=== PATIENT | male | born 1940 | race Caucasian/White ===

== ENCOUNTER → 2023-04-06 08:18 | Outpatient (REF) | payer OTHER, SELFPAY | LOC: HWRAD 08:18 | PROVIDERS: ATTENDING PHYSICIAN Family Medicine | DX: R91.1 Solitary pulmonary nodule (principal) | CPT/HCPCS: 71270; Q9967 ==

== ENCOUNTER 2023-04-08 06:19 | Emergency (ER) | payer OTHER, SELFPAY ==
[2023-04-08 06:24] VITALS: BP 162/78
--- NOTE | 2023-04-08 06:49 | ED.GENMED ---
History of Present Illness
General
Chief Complaint: Oral/Mouth Problem
Source: patient and spouse
Exam Limitations: none
Time Seen by Provider: 04/08/23 06:34
Travel History
Have you had any contact with someone who has COVID-19?: No
Do you have any symptoms of coronavirus? Fever > 100 degrees, chills, cough, shortness of breath, sore throat, loss of taste or smell, muscle aches, or headache?: No
History of Present Illness
History of Present Illness:
82-year-old male bleeding gums from a dental extraction last. Bleeding started overnight. INR slightly elevated at 4.2. Ended up taking 200 mcg of vitamin K with vitamin D. Currently not bleeding. No physical complaints.
Past History
Past History
ED Past Medical History: Arrthythmia (Atrial fibrillation), CVA and Other (Pneumonia, aortic valve replacement, mitral valve replacement, anemia)
ED Past Surgical History: Cardiac
Social History
Tobacco: Non-smoker
Alcohol: None
Drug: None
Personal:
Living: with family
Review of Systems
Review of Systems
All Other Systems: Not applicable
Constitutional: Denies fever
Phy Exam
Physical Exam
Physical Exam:
GENERAL: Alert and oriented in no apparent distress
EYE: Orbits normal.
NECK: Supple, no swelling
ENT: Pharynx without erythema. No drooling no stridor speech normal. Extraction site clean. No current bleeding
LUNGS: No respiratory distress
NEUROLOGICAL: Alert and oriented , grossly non-focal
SKIN: Warm and dry
PSYCH: Normal and appropriate interaction.
Course
Orders/Labs/Results
Orders:
Orders
04/08/23 06:43
Basic Metabolic Panel Urgent
Complete Blood Count/With Diff Urgent
PTT Urgent
Prothrombin Time Urgent
Abnormal Lab Results
04/08/23
06:43
RBC 3.37 L 10^6/uL
(4.70-6.10)
Hgb 11.1 L g/dL
(13.0-18.0)
Hct 32.5 L %
(39.0-52.0)
MCV 96.4 H fL
(80.0-94.0)
MCH 32.9 H pg
(27.0-31.0)
Absolute Lymphs (auto) 0.9 L 10^3/uL
(1.2-3.4)
Absolute Monos (auto) 0.7 H 10^3/uL
(0.1-0.6)
Lymphocytes % 17.2 L %
(20.5-51.1)
Monocytes % 12.4 H %
(1.7-9.3)
PT 34.9 H Sec
(11.4-14.6)
APTT 49.1 H Sec
(23.4-35.0)
Sodium 134 L mmol/L
(135-145)
Carbon Dioxide 31 H mmol/L
(22-30)
BUN 60 H mg/dl
(9-20)
04/08/23 06:43
04/08/23 06:43
Vital Signs
Initial and Last Documented VS:
Initial Vital Signs
Temp Pulse Resp BP Pulse Ox
97.7 F 65 17 162/78 99
04/08/23 06:24 04/08/23 06:24 04/08/23 06:24 04/08/23 06:24 04/08/23 06:24
Last Documented Vital Signs
Temp Pulse Resp BP Pulse Ox
97.7 F 71 18 146/75 99
04/08/23 06:24 04/08/23 08:48 04/08/23 08:48 04/08/23 08:48 04/08/23 08:48
MDM/Problems Addressed
Differential Diagnosis Includes:
No current bleeding. Will hold on active treatment at this time. Await INR. [place] text to patient's oral surgeon.
*Critical Care Note
Total Time (30-74mins, 75-104mins- exclusive of procedures): Not Applicable
Update Note
Update Note:
Recheck no bleeding. Remained stable. Message again left with patient's oral surgeon. BUN slightly elevated although comparing old labs he does tend to run elevated BUN's. He may have swallowed some blood to explain this. INR 3.4. Patient
updated. Stable for discharge to follow-up
ED Attending Note
-
Portions of this chart may have been created with voice recognition software.� Occasional wrong word or��sound alike� substitutions may have occurred due to the inherent limitations of voice recognition software.
Discharge Plan
Departure
Patient Disposition: Home (Routine Discharge)
Date of Disposition: 04/08/23
Time of Disposition: 08:28
Patient with high blood pressure during this ER visit?: Yes
Discharge Problem:
Bleeding gum, Secondary to tooth extraction, Anticoagulated
Instructions: BLOOD PRESSURE
Prescriptions:
No Action
warfarin [Jantoven] 5 MG tablet
5 mg PO QPM
fish oil-dha-epa 1 EACH capsule
1 ea PO DAILY
resveratrol 250 MG capsule
1,500 mg PO DAILY
coenzyme Q10-vit E-vit E mixed 1 EACH capsule
1 ea PO DAILY
levothyroxine 25 mcg tablet
50 mcg PO DAILY
Patient Comments:
07/22/22-ecw has 50mcg daily on 05/13/22- pharmacy on 04/06/22 has 25mcg daily, patient not sure an doesnot have his list
pantoprazole 40 mg tablet,delayed release (DR/EC)
40 mg PO QPM
ferrous sulfate 325 mg (65 mg iron) tablet
325 mg PO QPM
digoxin 125 mcg (0.125 mg) tablet
125 mcg PO DAILY
furosemide 40 mg tablet
40 mg PO DAILY
atorvastatin 40 mg tablet
40 mg PO QPM
carvedilol 3.125 mg tablet
3.125 mg PO BID
aspirin 81 mg tablet,chewable
81 mg PO DAILY
folic acid 1 MG tablet
1 mg PO DAILY
Jardiance 10 mg tablet
10 mg PO DAILY
Entresto 24-26 mg tablet
1 tab PO BID
Referrals:
Pedro Martinez DO [Family Provider] -
Activity Restrictions/Additional Instructions:
Your INR is 3.41. Discuss further dosing with your household appliance repairer
Call your oral surgeon this morning for close recheck
Return with recurrent bleeding or any other concerning issues
Interventions
Interventions:
*Risk Screen - Suicide Last Done: 04/08/23 06:24
*General Assessment Last Done: 04/08/23 06:24
*Neglect/Abuse Screening Last Done: 04/08/23 06:24
ED- Fall Risk Assessment Last Done: 04/08/23 06:24
*ED COVID-19 Vaccine History Last Done: 04/08/23 06:24
*Nursing Disposition Last Done: 04/08/23 08:51
Discharge Date and Time
Discharge Date/Time: 04/08/23 08:51
[2023-04-08 06:55] LABS: % Basophils 0.7 % (0-2); % Eosinophils 4.6 % (0-6); % Immature Granulocytes 0.2 % (0-0.5); % Lymphocytes 17.2 % (20.5-51.1); % Monocytes 12.4 % (1.7-9.3); % Neutrophils 64.9 % (42.2-75.2); Absolute Eosinophils 0.3 10^3/uL (0-0.7); Absolute Lymphocytes 0.9 10^3/uL (1.2-3.4); Absolute Monocytes 0.7 10^3/uL (0.1-0.6); Absolute Neutrophils 3.5 10^3/uL (1.4-6.5); Hematocrit 32.5 % (39.0-52.0); Hemoglobin 11.1 g/dL (13.0-18.0); Mean Corp Hgb Conc. 34.2 g/dL (33.0-37.0); Mean Corpuscular Hgb 32.9 pg (27.0-31.0); Mean Corpuscular Volume 96.4 fL (80.0-94.0); Mean Platelet Volume 9.8 fL (7.4-10.4); Nucleated Red Blood Cells % 0 % (-); Platelet Count 208 10^3/uL (130-400); Red Blood Cell Count 3.37 10^6/uL (4.70-6.10); Red Cell Dist. Width 14.3 % (11.5-14.5); White Blood Cell Count 5.4 10^3/uL (4.8-10.8)
[2023-04-08 07:08] LABS: INR 3.41; PT 34.9 Sec (11.4-14.6)
[2023-04-08 07:09] LABS: APTT 49.1 Sec (23.4-35.0)
[2023-04-08 07:32] LABS: Blood Urea Nitrogen 60 mg/dl (9-20); Calcium 9.3 mg/dl (8.4-10.2); Carbon Dioxide 31 mmol/L (22-30); Chloride 101 mmol/L (98-107); Glucose 90 mg/dl (70-99); Potassium 4.6 mmol/L (3.5-5.1); Sodium 134 mmol/L (135-145); eGFR > 60.00
[2023-04-08 08:48] VITALS: BP 146/75
== END 2023-04-08 08:51 | disposition home or self-care (01) ==
LOC: EMR 06:19
PROVIDERS: EMERGENCY PHYSICIAN Emergency Medicine; FAMILY PHYSICIAN Family Medicine
DX: K06.8 Other specified disorders of gingiva and edentulous alveolar ridge (principal); I48.91 Unspecified atrial fibrillation; D64.9 Anemia, unspecified; Z95.2 Presence of prosthetic heart valve; Z86.73 Personal history of transient ischemic attack (TIA), and cerebral infarction without residual deficits
CPT/HCPCS: 99283; 80048; 85025; 85610; 85730

== ENCOUNTER → 2023-04-20 15:40 | Outpatient (REF) | payer OTHER, SELFPAY ==
[2023-04-20 16:19] LABS: % Basophils 0.6 % (0-2); % Eosinophils 4.5 % (0-6); % Immature Granulocytes 0.4 % (0-0.5); % Monocytes 14.8 % (1.7-9.3); % Neutrophils 59.7 % (42.2-75.2); Absolute Eosinophils 0.2 10^3/uL (0-0.7); Absolute Monocytes 0.8 10^3/uL (0.1-0.6); Hematocrit 25.2 % (39.0-52.0); Hemoglobin 8.2 g/dL (13.0-18.0); Mean Corp Hgb Conc. 32.5 g/dL (33.0-37.0); Mean Corpuscular Volume 104.6 fL (80.0-94.0); Mean Platelet Volume 9.7 fL (7.4-10.4); Nucleated Red Blood Cells % 0 % (-); Platelet Count 221 10^3/uL (130-400); Red Blood Cell Count 2.41 10^6/uL (4.70-6.10); Red Cell Dist. Width 17.7 % (11.5-14.5); White Blood Cell Count 5.1 10^3/uL (4.8-10.8)
[2023-04-20 16:39] LABS: NT-proBNP 534 pg/ml
[2023-04-20 16:47] LABS: ALT (SGPT) 26 U/L (0-50); AST (SGOT) 46 U/L (17-59); Albumin 3.7 g/dl (3.5-5.0); Alkaline Phosphatase 68 U/L (38-126); Blood Urea Nitrogen 45 mg/dl (9-20); Carbon Dioxide 31 mmol/L (22-30); Chloride 98 mmol/L (98-107); Glucose 104 mg/dl (70-99); Potassium 4.7 mmol/L (3.5-5.1); Sodium 135 mmol/L (135-145); Total Bilirubin 0.8 mg/dl (0.2-1.3); Total Protein 6.1 g/dl (6.3-8.2); eGFR 49.87
[2023-04-20 17:22] LABS: TSH 9.92 uIU/ml (0.47-4.68)
== END ==
LOC: REG 15:40
PROVIDERS: ATTENDING PHYSICIAN Family Medicine
DX: R53.83 Other fatigue (principal)
CPT/HCPCS: 36415; 80053; 83880; 84443; 85025

== ENCOUNTER → 2023-04-29 11:58 | Outpatient (REF) | payer OTHER, SELFPAY ==
[2023-04-29 16:00] LABS: Iron 125 ug/dl (49-181)
[2023-04-29 16:09] LABS: Percent Saturation 33 % (20-50); Total Iron Binding Capacity 370 ug/dl (261-462)
[2023-04-29 16:36] LABS: Ferritin 60.9 ng/ml (17.9-464.0)
== END ==
LOC: HWLAB 11:58
PROVIDERS: ATTENDING PHYSICIAN Family Medicine; REFERRING PHYSICIAN Internal Medicine Hematology & Oncology
DX: D64.9 Anemia, unspecified (principal)
CPT/HCPCS: 36415; 82728; 83540; 83550

== ENCOUNTER → 2023-05-03 11:17 | Outpatient (REF) | payer OTHER, SELFPAY ==
[2023-05-03 15:37] LABS: % Basophils 0.9 % (0-2); % Eosinophils 5.3 % (0-6); % Immature Granulocytes 0.2 % (0-0.5); % Lymphocytes 19.7 % (20.5-51.1); % Monocytes 15.3 % (1.7-9.3); % Neutrophils 58.6 % (42.2-75.2); Absolute Eosinophils 0.2 10^3/uL (0-0.7); Absolute Lymphocytes 0.9 10^3/uL (1.2-3.4); Absolute Monocytes 0.7 10^3/uL (0.1-0.6); Absolute Neutrophils 2.7 10^3/uL (1.4-6.5); Hemoglobin 10.6 g/dL (13.0-18.0); Mean Corp Hgb Conc. 32.1 g/dL (33.0-37.0); Mean Corpuscular Hgb 34.1 pg (27.0-31.0); Mean Corpuscular Volume 106.1 fL (80.0-94.0); Mean Platelet Volume 10.5 fL (7.4-10.4); Nucleated Red Blood Cells % 0 % (-); Platelet Count 213 10^3/uL (130-400); Red Blood Cell Count 3.11 10^6/uL (4.70-6.10); Red Cell Dist. Width 16.1 % (11.5-14.5); White Blood Cell Count 4.5 10^3/uL (4.8-10.8)
== END ==
LOC: HWLAB 11:17
PROVIDERS: ATTENDING PHYSICIAN Family Medicine; REFERRING PHYSICIAN Internal Medicine Cardiovascular Disease
DX: Z86.2 Personal history of diseases of the blood and blood-forming organs and certain disorders involving the immune mechanism (principal)
CPT/HCPCS: 36415; 85025

== ENCOUNTER → 2023-07-15 10:49 | Outpatient (REF) | payer OTHER, SELFPAY ==
[2023-07-15 11:48] LABS: % Basophils 0.6 % (0-2); % Eosinophils 2.8 % (0-6); % Immature Granulocytes 0.6 % (0-0.5); % Lymphocytes 16.8 % (20.5-51.1); % Monocytes 9.5 % (1.7-9.3); % Neutrophils 69.7 % (42.2-75.2); Absolute Eosinophils 0.2 10^3/uL (0-0.7); Absolute Lymphocytes 0.9 10^3/uL (1.2-3.4); Absolute Monocytes 0.5 10^3/uL (0.1-0.6); Absolute Neutrophils 3.7 10^3/uL (1.4-6.5); Hematocrit 25.2 % (39.0-52.0); Hemoglobin 8.1 g/dL (13.0-18.0); Mean Corp Hgb Conc. 32.1 g/dL (33.0-37.0); Mean Corpuscular Hgb 33.6 pg (27.0-31.0); Mean Corpuscular Volume 104.6 fL (80.0-94.0); Mean Platelet Volume 10.4 fL (7.4-10.4); Nucleated Red Blood Cells % 0 % (-); Platelet Count 223 10^3/uL (130-400); Red Blood Cell Count 2.41 10^6/uL (4.70-6.10); Red Cell Dist. Width 16.7 % (11.5-14.5); White Blood Cell Count 5.4 10^3/uL (4.8-10.8)
[2023-07-15 12:39] LABS: ALT (SGPT) 29 U/L (0-50); AST (SGOT) 60 U/L (17-59); Alkaline Phosphatase 66 U/L (38-126); Blood Urea Nitrogen 48 mg/dl (9-20); Calcium 9.3 mg/dl (8.4-10.2); Carbon Dioxide 31 mmol/L (22-30); Chloride 100 mmol/L (98-107); Glucose 93 mg/dl (70-99); HDL Cholesterol 66 mg/dl; Iron 236 ug/dl (49-181); LDL Cholesterol, Calculated 35 mg/dl; Potassium 4.4 mmol/L (3.5-5.1); Sodium 136 mmol/L (135-145); Total Bilirubin 0.9 mg/dl (0.2-1.3); Total Cholesterol 113 mg/dl (50-199); Total Protein 6.5 g/dl (6.3-8.2); Triglyceride 60 mg/dl (10-149); Very Low Density Lipoprotein 12 mg/dl (0-30); eGFR 59.63
[2023-07-15 12:48] LABS: Percent Saturation 74 % (20-50); Total Iron Binding Capacity 317 ug/dl (261-462)
[2023-07-15 13:05] LABS: TSH Reflex To Free T4 7.08 uIU/ml (0.47-4.68)
[2023-07-15 13:09] LABS: Ferritin 41.9 ng/ml (17.9-464.0)
[2023-07-15 13:33] LABS: Free T4 1.23 ng/dl (0.78-2.19)
== END ==
LOC: HWLAB 10:49
PROVIDERS: ATTENDING PHYSICIAN Internal Medicine Cardiovascular Disease; FAMILY PHYSICIAN Family Medicine
DX: R42 Dizziness and giddiness (principal)
CPT/HCPCS: 36415; 80053; 80061; 82728; 83540; 83550; 84439; 84443; 85025

== ENCOUNTER → 2023-08-11 10:27 | Outpatient (REF) | payer OTHER, SELFPAY ==
[2023-08-11 12:37] LABS: % Basophils 1.4 % (0-2); % Eosinophils 4.4 % (0-6); % Immature Granulocytes 0.3 % (0-0.5); % Lymphocytes 21.6 % (20.5-51.1); % Monocytes 17.9 % (1.7-9.3); % Neutrophils 54.4 % (42.2-75.2); Absolute Eosinophils 0.1 10^3/uL (0-0.7); Absolute Lymphocytes 0.6 10^3/uL (1.2-3.4); Absolute Monocytes 0.5 10^3/uL (0.1-0.6); Absolute Neutrophils 1.6 10^3/uL (1.4-6.5); Hematocrit 32.7 % (39.0-52.0); Hemoglobin 10.5 g/dL (13.0-18.0); Mean Corp Hgb Conc. 32.1 g/dL (33.0-37.0); Mean Corpuscular Hgb 33.2 pg (27.0-31.0); Mean Corpuscular Volume 103.5 fL (80.0-94.0); Mean Platelet Volume 10.4 fL (7.4-10.4); Nucleated Red Blood Cells % 0 % (-); Platelet Count 168 10^3/uL (130-400); Red Blood Cell Count 3.16 10^6/uL (4.70-6.10); Red Cell Dist. Width 13.9 % (11.5-14.5)
== END ==
LOC: HWLAB 10:27
PROVIDERS: ATTENDING PHYSICIAN Internal Medicine Hematology & Oncology; FAMILY PHYSICIAN Family Medicine
DX: D50.9 Iron deficiency anemia, unspecified (principal)
CPT/HCPCS: 36415; 85025

== ENCOUNTER → 2023-08-19 13:39 | Outpatient (REF) | payer OTHER, SELFPAY ==
[2023-08-19 16:28] LABS: % Basophils 0.9 % (0-2); % Eosinophils 4.4 % (0-6); % Immature Granulocytes 0.3 % (0-0.5); % Lymphocytes 27.9 % (20.5-51.1); % Monocytes 14.5 % (1.7-9.3); Absolute Eosinophils 0.2 10^3/uL (0-0.7); Absolute Monocytes 0.5 10^3/uL (0.1-0.6); Absolute Neutrophils 1.8 10^3/uL (1.4-6.5); Hematocrit 34.1 % (39.0-52.0); Hemoglobin 11.1 g/dL (13.0-18.0); Mean Corp Hgb Conc. 32.6 g/dL (33.0-37.0); Mean Corpuscular Hgb 32.3 pg (27.0-31.0); Mean Corpuscular Volume 99.1 fL (80.0-94.0); Mean Platelet Volume 10.5 fL (7.4-10.4); Nucleated Red Blood Cells % 0 % (-); Platelet Count 200 10^3/uL (130-400); Red Blood Cell Count 3.44 10^6/uL (4.70-6.10); White Blood Cell Count 3.4 10^3/uL (4.8-10.8)
[2023-08-19 17:16] LABS: Ferritin 35.2 ng/ml (17.9-464.0)
[2023-08-19 18:01] LABS: Iron 63 ug/dl (49-181)
[2023-08-19 18:10] LABS: Percent Saturation 18 % (20-50); Total Iron Binding Capacity 336 ug/dl (261-462)
== END ==
LOC: HWLAB 13:39
PROVIDERS: ATTENDING PHYSICIAN Family Medicine
DX: D64.9 Anemia, unspecified (principal)
CPT/HCPCS: 36415; 82728; 83540; 83550; 85025

== ENCOUNTER 2023-09-13 06:48 | Emergency (ER) | payer OTHER, SELFPAY ==
[2023-09-13 06:51] VITALS: BP 159/106
[2023-09-13 07:10] VITALS: BMI 23.2
[2023-09-13 07:33] VITALS: BP 133/96
[2023-09-13 08:20] LABS: % Basophils 0.8 % (0-2); % Eosinophils 3.8 % (0-6); % Immature Granulocytes 0.4 % (0-0.5); % Lymphocytes 16.7 % (20.5-51.1); % Monocytes 13.7 % (1.7-9.3); % Neutrophils 64.6 % (42.2-75.2); Absolute Eosinophils 0.2 10^3/uL (0-0.7); Absolute Lymphocytes 0.8 10^3/uL (1.2-3.4); Absolute Monocytes 0.7 10^3/uL (0.1-0.6); Absolute Neutrophils 3.2 10^3/uL (1.4-6.5); Hematocrit 37.8 % (39.0-52.0); Hemoglobin 12.8 g/dL (13.0-18.0); Mean Corp Hgb Conc. 33.9 g/dL (33.0-37.0); Mean Corpuscular Hgb 31.8 pg (27.0-31.0); Mean Platelet Volume 9.8 fL (7.4-10.4); Nucleated Red Blood Cells % 0 % (-); Platelet Count 177 10^3/uL (130-400); Red Blood Cell Count 4.02 10^6/uL (4.70-6.10); Red Cell Dist. Width 12.6 % (11.5-14.5)
[2023-09-13 08:27] LABS: INR 1.87; PT 21.7 Sec (11.4-14.6)
[2023-09-13 08:28] LABS: APTT 36.5 Sec (23.4-35.0)
[2023-09-13 08:45] LABS: ALT (SGPT) 30 U/L (0-50); AST (SGOT) 47 U/L (17-59); Albumin 4.7 g/dl (3.5-5.0); Alkaline Phosphatase 82 U/L (38-126); Blood Urea Nitrogen 27 mg/dl (9-20); Calcium 9.3 mg/dl (8.4-10.2); Carbon Dioxide 30 mmol/L (22-30); Chloride 99 mmol/L (98-107); Estimated Creatinine Clearance 46 ml/min; Glucose 93 mg/dl (70-99); Potassium 4.2 mmol/L (3.5-5.1); Sodium 137 mmol/L (135-145); Total Protein 7.4 g/dl (6.3-8.2); eGFR 59.63
[2023-09-13 09:48] VITALS: BP 126/74
[2023-09-13 10:01] VITALS: BP 129/59
--- NOTE | 2023-09-13 11:41 | PHANOTE ---
Completing med rec for patient and noted that patient was previously prescribed diltiazem CD 180mg daily then a dose decrease to 120mg daily was noted by cardiology on 07/06/23. Contacted [facility] who noted that patient was dispensed #90
tablets of diltiazem IR 120mg daily on 07/06/23. Contacted collection supervisor who noted that patient is to receive diltiazem ER/CD 120mg daily. Notified ED provider and [facility] [[facility]: [facility]] of updated dosage formulation.
[2023-09-13] MEDS: TYLENOL 650 MG PO (11:55)
[2023-09-13 12:00] VITALS: BP 154/86
--- NOTE | 2023-09-13 13:20 | EDRN ---
Reviewed discharge instructions with patient. Verbalized understanding. Ambulated with steady gait to the lobby.
[2023-09-13 13:25] VITALS: BP 148/72
--- NOTE | 2023-09-13 16:25 | ED.CVA ---
History of Present Illness
General
Chief Complaint: CVA/TIA Symptoms
Source: patient and spouse
Exam Limitations: none
Time Seen by Provider: 09/13/23 07:33
Nursing documentation reviewed up to this point in time: agreed with
Onset of Stroke Symptoms
Onset of symptoms known: Yes
Date of onset of symptoms: 09/13/23
History of Present Illness
History of Present Illness:
83-year-old male with a past medical history of atrial fibrillation on Coumadin, CHF, valve replacement who presents to the emergency room with his for evaluation after an episode of slurred speech. Patient reports that he was on the phone
with his laboratory chemical assistant at around 5:30 AM when he had an episode of slurred speech that lasted for about 60 seconds. He says it completely resolved but that his laboratory chemical assistant could not understand him for that period of time. He came to the emergency room
for assessment. He says he did not have any visual disturbance. He did not have any weakness or numbness in his extremities. did not note any facial droop. Again, symptoms have completely resolved and he is asymptomatic here. Denies any
chest pain or palpitations. He is in permanent A-fib. Denies any other complaints. He is on Coumadin and reports compliance.
Past History
Past History
ED Past Medical History: Arrthythmia (Atrial fibrillation), CVA and Other (Pneumonia, aortic valve replacement, mitral valve replacement, anemia)
ED Past Surgical History: Cardiac
Social History
Tobacco: Non-smoker
Alcohol: None
Drug: None
Personal:
Living: with family
Review of Systems
Review of Systems
All Other Systems: ROS reviewed and negative except as documented in HPI and ROS
Constitutional: Denies fever
Respiratory: Denies trouble breathing
Cardiac: Denies chest pain or palpitations
ABD/GI: Denies abdominal pain, nausea or vomiting
: Denies flank pain
Musculoskeletal: Denies neck pain or back pain
Neurological: Reports other (Speech disturbance); Denies dizzy, headache, weakness or numbness
Phy Exam
Physical Exam
Physical Exam:
General: Awake, alert, oriented x3; no acute distress
Head: Normocephalic, atraumatic
Eyes: Conjunctiva normal, EOMI, pupils equal round and reactive to light bilaterally
Throat: Airway intact, handling secretions
Neck: Trachea midline, supple without meningismus
Lungs: Clear to auscultation bilaterally, no wheezing, rales, rhonchi
Heart: Regular rate and irregular rhythm, systolic murmur
Abd: Soft, non distended, nontender
Neuro: Cranial nerves intact 2 through 12, speech is fluid with no dysarthria or aphasia, no limb ataxia, motor and sensory function is intact and symmetric in the upper and lower extremities, ambulatory with steady gait
Skin: no rash
Extremities: No edema in extremities, equal pulses in all extremities
Scores
NIH Stroke Score
Level of Consciousness: 0 - Alert
LOC Questions: 0-Answers both correctly
LOC Commands: 0-Performs both correctly
Best Horizontal Gaze: 0-Normal
Visual Sanchez: 0=Normal, no visual loss
Facial Palsy: 0=Normal, symmetrical
Motor - Right Arm: 0=No drift 10 seconds
Motor - Left Arm: 0=No drift 10 seconds
Motor - Right Le-No drift 5 seconds
Motor - Left Le-No drift 5 seconds
Limb Ataxia: 0-Absent
Sensation: 0-Normal
Best Language: 0-No aphasia
Dysarthria: 0-Normal
Extinction and Inattention: 0-No abnormality
Total Score:: 0
Heart Failure Risk
Heart Failure Risk Score: Not Applicable
Heart Score for Chest Pain Patients
STEMI patient?: Not applicable
Withdrawal Assessment of Alcohol
Withdrawal Assessment Completed?: Not applicable
Course
Orders/Labs/Results
Orders:
Orders
09/13/23 07:03
CT Head W/o Iv Contrast Urgent
Comment:
Reason For Exam: slurred speech
09/13/23 07:05
EKG [Electrocardiogram (*1)] Urgent
Reason for Study: TIA/Stroke
EKG- Treatment ONCE
09/13/23 07:49
CMP [Comprehensive Metabolic Panel] Urgent
Complete Blood Count/With Diff Urgent
PTT Urgent
Prothrombin Time Urgent
09/13/23 08:02
NEUROLOGY CONSULT Urgent
Consulting Provider: Shane Mascorro
Was physician already notified: Yes
09/13/23 08:18
US Carotid [US Cerebrovascular] Urgent
Comment:
Reason For Exam: transient dysarthria
09/13/23 11:48
Acetaminophen [Tylenol] 650 mg PO NOW STA
Abnormal Lab Results
09/13/23
07:49
RBC 4.02 L 10^6/uL
(4.70-6.10)
Hgb 12.8 L g/dL
(13.0-18.0)
Hct 37.8 L %
(39.0-52.0)
MCH 31.8 H pg
(27.0-31.0)
Absolute Lymphs (auto) 0.8 L 10^3/uL
(1.2-3.4)
Absolute Monos (auto) 0.7 H 10^3/uL
(0.1-0.6)
Lymphocytes % 16.7 L %
(20.5-51.1)
Monocytes % 13.7 H %
(1.7-9.3)
PT 21.7 H Sec
(11.4-14.6)
APTT 36.5 H Sec
(23.4-35.0)
BUN 27 H mg/dl
(9-20)
09/13/23 07:49
09/13/23 07:49
Vital Signs
Initial and Last Documented VS:
Initial Vital Signs
Temp Pulse Resp BP Pulse Ox
36.5 C 98 16 159/106 98
09/13/23 06:51 09/13/23 06:51 09/13/23 06:51 09/13/23 06:51 09/13/23 06:51
Last Documented Vital Signs
Temp Pulse Resp BP Pulse Ox
36.5 C 70 18 148/72 98
09/13/23 06:51 09/13/23 13:25 09/13/23 13:25 09/13/23 13:25 09/13/23 13:25
MDM/Problems Addressed
Differential Diagnosis Includes:
TIA, CVA, hemorrhage, brain mass, fatigue
MDM/Problems Addressed:
83-year-old male presents for evaluation after transient episode of dysarthria that lasted for about 60 seconds and has completely resolved. Asymptomatic here in the emergency room. Hypertensive but otherwise normal vitals. Physical exam as
above. NIH stroke scale 0. Suspect likely TIA. Will place an IV check labs including a CBC and a CMP, coags. Will check CT head and carotid ultrasound. Check an EKG. Monitor clinically reassess after the above. Case discussed with neurology
to evaluate.
Labs reviewed: CBC shows marginal anemia stable unremarkable otherwise. CMP no clinically significant abnormalities. INR slightly subtherapeutic at 1.87. CT head negative for any acute pathology. Carotid ultrasound no significant stenosis. Case
was discussed with neurology who evaluated. Initial recommendation was for admission for observation and MRI. Initially discussed case with hospitalist for admission. Shortly after admission patient requested to speak with me�he says that he does
not wish to stay in the hospital and is refusing admission. I did have a long discussion with the patient and his �explained that patient at risk for progression of stroke after TIA like this. Furthermore explained that given he is
subtherapeutic on his INR and in permanent A-fib this could be a very small stroke that only had mild transient symptoms. He indicated understanding but still wishes to leave the hospital. Discussed with neurology they recommended starting him on
81 mg aspirin every other day. I stressed with the patient that he will need to follow INR closely as an outpatient. He assured me that he would. We spoke in detail about return precautions including for any return of neurologic symptoms. Using
shared decision making he was discharged in keeping with his wishes.
Chronic conditions affecting care:
A-fib on Coumadin�high risk for stroke
Acute Exacerbation and/or Progression of Chronic Illness:
Acutely hypertensive resolved without intervention continue to monitor but no additional antihypertensives indicated at present
*Radiology
Radiology exam reviewed: radiology read reviewed
*Pulse Oximetry
Patient hypoxic: no
*EKG
Interpreted by ED Provider?: Yes
Heart Rate: 77
Rate: normal
Rhythm: a-fib
[place]: normal axis
QRS Pattern: left bundle branch block
*Critical Care Note
Total Time (30-74mins, 75-104mins- exclusive of procedures): Not Applicable
Data Reviewed
Review of Other/Old Records Reveals: Labs and Records
Source: patient and spouse
Further Testing Considered But Not Given:
MRI�patient declined
Patient Management
Discussion with other providers: Hospitalist (Discussed with hospitalist) and Toll Transmission Worker (Discussed with neurologist)
Escalation/DeEscalation of care consider admission/obs:
Admission indicated but patient declined admission�using shared decision-making he was discharged in keeping with his wishes
ED Attending Note
-
Portions of this chart may have been created with voice recognition software.� Occasional wrong word or��sound alike� substitutions may have occurred due to the inherent limitations of voice recognition software.
Discharge Plan
Departure
Patient Disposition: Home (Routine Discharge)
Date of Disposition: 09/13/23
Time of Disposition: 10:35
Patient with high blood pressure during this ER visit?: Yes
Discharge Problem:
Brain TIA
Instructions: Transient Ischemic Attack (DC)
Prescriptions:
New
aspirin 81 mg tablet,chewable
See Rx Instructions .ROUTE .COMPLEX Qty: 30 0RF
Rx Instructions:
81 mg orally;every other day
No Action
warfarin [Jantoven] 5 MG tablet
5 mg PO QPM
Patient Comments:
09/13/23: PER ECW-NADIRA from [facility] called to verify dose for patient as dose in comment section is 5.5mg daily. I told him patient has 1mg tabs at home and knows to break them in half however, I did tell PJ to please note in patient file that he
does not take the dose of Coumadin we direct most times. Patient doses himself a lot of the time. We have educated patient multiple times to not do this and why it is important to follow our dosing.
ferrous sulfate 325 mg (65 mg iron) tablet
325 mg PO BID
digoxin 125 mcg (0.125 mg) tablet
125 mcg PO DAILY
furosemide 40 mg tablet
40 mg PO DAILY
atorvastatin 40 mg tablet
40 mg PO QPM
folic acid 1 MG tablet
1 mg PO DAILY
Entresto 24-26 mg tablet
1 tab PO BID
carvedilol 6.25 mg Tablet
3.125 mg PO BID
Theragen Tablet
1 tab PO DAILY
spironolactone 25 mg Tablet
25 mg PO DAILY
levothyroxine 25 mcg Tablet
25 mcg PO DAILY
diltiazem HCl 120 mg Tablet
120 mg PO DAILY
coenzyme Q10 [CoQ-10] 100 mg Capsule
100 mg PO DAILY
omega 8-jxk-vxh-fish oil [Fish Oil] 1,000 mg (120 mg-180 mg) Capsule
1 cap PO DAILY
resveratrol 250 mg Capsule
1,000 mg PO DAILY
cyanocobalamin (vitamin B-12) tablet
1 tab PO DAILY
Activity Restrictions/Additional Instructions:
You were seen in the emergency room after an episode of slurred speech. You were seen by the neurologist who recommended that you be observed overnight for some further testing and observation. You opted not to stay in the hospital�after
discussion we agreed that you must at the very least follow-up with your primary doctor within the next few days and monitor your INR very closely to ensure that it is improving to the therapeutic range. If you have any recurrence of symptoms
whatsoever you must immediately return to the emergency room.
Thank you for visiting the Emergency Department at [facility].
1. Please schedule a follow up appointment as directed. Call first thing tomorrow morning to make an appointment.
2. If indicated, please take your medications as instructed and indicated on discharge paperwork.
3. If any of your symptoms do not improve, or persist, or become more severe within 6-12 hours, please return to the emergency department for further care.
4. Please return to the emergency department if you develop a headache, neck pain/stiffness, fever greater than 100.4F, chest pain, shortness of breath, persistent nausea, vomiting, slurred speech, difficulty walking, numbness/tingling, weakness,
signs of infection or any other symptoms that are worrisome to you.
Please call [phone] if you have any questions.
Interventions
Interventions:
*Risk Screen - Suicide Last Done: 09/13/23 07:10
*General Assessment Last Done: 09/13/23 07:10
*Neglect/Abuse Screening Last Done: 09/13/23 07:10
ED- Fall Risk Assessment Last Done: 09/13/23 07:10
*ED COVID-19 Vaccine History Last Done: 09/13/23 06:51
*Nursing Disposition Last Done: 09/13/23 13:25
ED- Pulmonary Assessment Last Done: 09/13/23 07:10
ED- Neurological Assessment Last Done: 09/13/23 07:10
ED- Cardiac Assessment Last Done: 09/13/23 07:10
ED Swallowing Screen Last Done: 09/13/23 08:45
Discharge Date and Time
Discharge Date/Time: 09/13/23 13:20
Print Language: ARABIC
== END 2023-09-13 13:20 | disposition home or self-care (01) ==
LOC: EMR 06:48
PROVIDERS: CONSULT PHYSICIAN Psychiatry & Neurology Neurology; EMERGENCY PHYSICIAN Emergency Medicine; FAMILY PHYSICIAN Family Medicine
DX: G45.9 Transient cerebral ischemic attack, unspecified (principal); I11.0 Hypertensive heart disease with heart failure; I50.9 Heart failure, unspecified; I48.91 Unspecified atrial fibrillation
CPT/HCPCS: 99285; 70450; 80053; 85025; 85610; 85730; 93005; 93880

== ENCOUNTER → 2023-10-01 12:34 | Outpatient (REF) | payer OTHER, SELFPAY ==
[2023-10-01 16:01] LABS: % Basophils 0.9 % (0-2); % Eosinophils 4.4 % (0-6); % Immature Granulocytes 0.2 % (0-0.5); % Lymphocytes 21.5 % (20.5-51.1); % Monocytes 14.8 % (1.7-9.3); % Neutrophils 58.2 % (42.2-75.2); Absolute Eosinophils 0.2 10^3/uL (0-0.7); Absolute Lymphocytes 0.9 10^3/uL (1.2-3.4); Absolute Monocytes 0.6 10^3/uL (0.1-0.6); Absolute Neutrophils 2.5 10^3/uL (1.4-6.5); Hematocrit 28.4 % (39.0-52.0); Hemoglobin 9.3 g/dL (13.0-18.0); Mean Corp Hgb Conc. 32.7 g/dL (33.0-37.0); Mean Corpuscular Hgb 32.4 pg (27.0-31.0); Mean Platelet Volume 10.2 fL (7.4-10.4); Nucleated Red Blood Cells % 0 % (-); Platelet Count 220 10^3/uL (130-400); Red Blood Cell Count 2.87 10^6/uL (4.70-6.10); Red Cell Dist. Width 14.5 % (11.5-14.5); White Blood Cell Count 4.3 10^3/uL (4.8-10.8)
== END ==
LOC: HWLAB 12:34
PROVIDERS: ATTENDING PHYSICIAN Internal Medicine Cardiovascular Disease; FAMILY PHYSICIAN Family Medicine
DX: I42.9 Cardiomyopathy, unspecified (principal); I48.21 Permanent atrial fibrillation; Z95.2 Presence of prosthetic heart valve
CPT/HCPCS: 36415; 85025

== ENCOUNTER → 2023-10-08 07:39 | Outpatient (REF) | payer OTHER, SELFPAY ==
[2023-10-08 10:06] LABS: Iron 71 ug/dl (49-181)
[2023-10-08 10:15] LABS: Percent Saturation 22 % (20-50); Total Iron Binding Capacity 322 ug/dl (261-462)
== END ==
LOC: HWLAB 07:39
PROVIDERS: ATTENDING PHYSICIAN Nurse Practitioner Family; FAMILY PHYSICIAN Family Medicine
DX: D50.9 Iron deficiency anemia, unspecified (principal); D63.1 Anemia in chronic kidney disease; N18.30 Chronic kidney disease, stage 3 unspecified; D59.4 Other nonautoimmune hemolytic anemias
CPT/HCPCS: 36415; 82728; 83540; 83550

== ENCOUNTER → 2023-10-11 16:43 | Outpatient (REF) | payer OTHER, SELFPAY ==
[2023-10-11 18:03] LABS: INR 2.65; PT 28.2 Sec (11.4-14.6)
== END ==
LOC: REG 16:43
PROVIDERS: ATTENDING PHYSICIAN Internal Medicine Cardiovascular Disease
DX: I42.9 Cardiomyopathy, unspecified (principal); I48.21 Permanent atrial fibrillation; Z95.2 Presence of prosthetic heart valve
CPT/HCPCS: 36415; 85610

== ENCOUNTER → 2023-10-12 08:27 | Outpatient (REF) | payer OTHER, SELFPAY ==
[2023-10-12 08:54] LABS: % Basophils 1.2 % (0-2); % Lymphocytes 19.8 % (20.5-51.1); % Monocytes 15.1 % (1.7-9.3); % Neutrophils 59.9 % (42.2-75.2); Absolute Basophils 0.1 10^3/uL (0-0.2); Absolute Eosinophils 0.2 10^3/uL (0-0.7); Absolute Lymphocytes 0.8 10^3/uL (1.2-3.4); Absolute Monocytes 0.6 10^3/uL (0.1-0.6); Absolute Neutrophils 2.6 10^3/uL (1.4-6.5); Hematocrit 31.6 % (39.0-52.0); Hemoglobin 10.2 g/dL (13.0-18.0); Mean Corp Hgb Conc. 32.3 g/dL (33.0-37.0); Mean Corpuscular Hgb 32.2 pg (27.0-31.0); Mean Corpuscular Volume 99.7 fL (80.0-94.0); Mean Platelet Volume 9.6 fL (7.4-10.4); Platelet Count 226 10^3/uL (130-400); Red Blood Cell Count 3.17 10^6/uL (4.70-6.10); Red Cell Dist. Width 15.6 % (11.5-14.5); White Blood Cell Count 4.3 10^3/uL (4.8-10.8)
== END ==
LOC: OIDL 08:27
PROVIDERS: ATTENDING PHYSICIAN Internal Medicine Hematology & Oncology; FAMILY PHYSICIAN Family Medicine
DX: D50.9 Iron deficiency anemia, unspecified (principal); D63.1 Anemia in chronic kidney disease; N18.30 Chronic kidney disease, stage 3 unspecified; D59.4 Other nonautoimmune hemolytic anemias
CPT/HCPCS: 36415; 85025

== ENCOUNTER → 2023-11-02 13:33 | Outpatient (REF) | payer OTHER, SELFPAY ==
[2023-11-02 09:46] LABS: % Basophils 0.9 % (0-2); % Eosinophils 3.2 % (0-6); % Immature Granulocytes 0.5 % (0-0.5); % Lymphocytes 17.5 % (20.5-51.1); % Monocytes 12.9 % (1.7-9.3); Absolute Eosinophils 0.1 10^3/uL (0-0.7); Absolute Lymphocytes 0.8 10^3/uL (1.2-3.4); Absolute Monocytes 0.6 10^3/uL (0.1-0.6); Absolute Neutrophils 2.8 10^3/uL (1.4-6.5); Hematocrit 34.5 % (39.0-52.0); Hemoglobin 11.6 g/dL (13.0-18.0); Mean Corp Hgb Conc. 33.6 g/dL (33.0-37.0); Mean Corpuscular Hgb 33.5 pg (27.0-31.0); Mean Corpuscular Volume 99.7 fL (80.0-94.0); Mean Platelet Volume 10.2 fL (7.4-10.4); Nucleated Red Blood Cells % 0 % (-); Platelet Count 237 10^3/uL (130-400); Red Blood Cell Count 3.46 10^6/uL (4.70-6.10); Red Cell Dist. Width 15.7 % (11.5-14.5); White Blood Cell Count 4.4 10^3/uL (4.8-10.8)
[2023-11-02 10:11] LABS: Iron 135 ug/dl (49-181)
[2023-11-02 10:20] LABS: Percent Saturation 39 % (20-50); Total Iron Binding Capacity 344 ug/dl (261-462)
[2023-11-02 12:29] LABS: Ferritin 54.7 ng/ml (17.9-464.0)
== END ==
LOC: OIDL 13:33
PROVIDERS: ATTENDING PHYSICIAN Nurse Practitioner Adult Health
DX: D50.9 Iron deficiency anemia, unspecified (principal)
CPT/HCPCS: 82728; 83540; 83550; 85025

== ENCOUNTER 2023-11-09 06:15 | Day surgery (SDC) | payer OTHER, SELFPAY ==
--- NOTE | 2023-11-02 12:07 | PTCARENOTE ---
INR 2.65 collected on 10/11/23; Tamela Chang's office was notified.
[2023-11-04 06:56] VITALS: BMI 23.5
[2023-11-04 09:10] LABS: Hematocrit 33.9 % (39.0-52.0); Hemoglobin 10.9 g/dL (13.0-18.0); Mean Corp Hgb Conc. 32.2 g/dL (33.0-37.0); Mean Corpuscular Hgb 32.4 pg (27.0-31.0); Mean Corpuscular Volume 100.9 fL (80.0-94.0); Mean Platelet Volume 10.8 fL (7.4-10.4); Platelet Count 245 10^3/uL (130-400); Red Blood Cell Count 3.36 10^6/uL (4.70-6.10); Red Cell Dist. Width 15.9 % (11.5-14.5); White Blood Cell Count 4.6 10^3/uL (4.8-10.8)
[2023-11-04 09:23] LABS: INR 3.11; PT 32.5 Sec (11.4-14.6)
[2023-11-04 09:24] LABS: APTT 43.1 Sec (23.4-35.0)
[2023-11-04 09:25] LABS: Blood Urea Nitrogen 43 mg/dl (9-20); Calcium 9.6 mg/dl (8.4-10.2); Carbon Dioxide 34 mmol/L (22-30); Chloride 101 mmol/L (98-107); Estimated Creatinine Clearance 34 ml/min; Glucose 92 mg/dl (70-99); Potassium 5.4 mmol/L (3.5-5.1); Sodium 141 mmol/L (135-145); eGFR 42.22
[2023-11-09 11:39] VITALS: BMI 23.2
[2023-11-09 11:41] VITALS: BP 162/91
--- NOTE | 2023-11-09 12:23 | PTCARENOTE ---
Pt discharged from [facility] at approx 1220. Surgery cancelled. Dr. Gu at bed side. Pt drank 8oz vanilla protein shake, last at 0900. Pt left with .
== END 2023-11-09 12:23 | disposition home or self-care (01) ==
LOC: SDS 06:15
PROVIDERS: ATTENDING PHYSICIAN Surgery; FAMILY PHYSICIAN Family Medicine; OTHER PHYSICIAN Internal Medicine Cardiovascular Disease
DX: K43.9 Ventral hernia without obstruction or gangrene (principal); K42.9 Umbilical hernia without obstruction or gangrene; Z53.8 Procedure and treatment not carried out for other reasons
CPT/HCPCS: 49591; 36415; 80048; 85027; 85610; 85730; 87070

== ENCOUNTER → 2023-11-15 14:57 | Outpatient (REF) | payer OTHER, SELFPAY ==
[2023-11-15 08:55] LABS: % Immature Granulocytes 0.2 % (0-0.5); % Lymphocytes 21.1 % (20.5-51.1); % Monocytes 13.4 % (1.7-9.3); % Neutrophils 61.3 % (42.2-75.2); Absolute Eosinophils 0.1 10^3/uL (0-0.7); Absolute Lymphocytes 0.9 10^3/uL (1.2-3.4); Absolute Monocytes 0.5 10^3/uL (0.1-0.6); Absolute Neutrophils 2.5 10^3/uL (1.4-6.5); Hematocrit 33.3 % (39.0-52.0); Hemoglobin 10.8 g/dL (13.0-18.0); Mean Corp Hgb Conc. 32.4 g/dL (33.0-37.0); Mean Corpuscular Hgb 32.4 pg (27.0-31.0); Mean Platelet Volume 10.8 fL (7.4-10.4); Nucleated Red Blood Cells % 0 % (-); Platelet Count 174 10^3/uL (130-400); Red Blood Cell Count 3.33 10^6/uL (4.70-6.10); Red Cell Dist. Width 15.1 % (11.5-14.5)
== END ==
LOC: OIDL 14:57
PROVIDERS: ATTENDING PHYSICIAN Internal Medicine Hematology & Oncology
DX: D50.9 Iron deficiency anemia, unspecified (principal)
CPT/HCPCS: 85025

== ENCOUNTER → 2023-11-22 15:46 | Outpatient (REF) | payer OTHER, SELFPAY ==
[2023-11-22 10:40] LABS: % Basophils 1.1 % (0-2); % Eosinophils 4.8 % (0-6); % Lymphocytes 15.1 % (20.5-51.1); % Monocytes 11.4 % (1.7-9.3); % Neutrophils 67.6 % (42.2-75.2); Absolute Eosinophils 0.2 10^3/uL (0-0.7); Absolute Lymphocytes 0.5 10^3/uL (1.2-3.4); Absolute Monocytes 0.4 10^3/uL (0.1-0.6); Absolute Neutrophils 2.4 10^3/uL (1.4-6.5); Hematocrit 32.7 % (39.0-52.0); Mean Corp Hgb Conc. 33.6 g/dL (33.0-37.0); Mean Corpuscular Hgb 34.6 pg (27.0-31.0); Mean Corpuscular Volume 102.8 fL (80.0-94.0); Nucleated Red Blood Cells % 0 % (-); Platelet Count 206 10^3/uL (130-400); Red Blood Cell Count 3.18 10^6/uL (4.70-6.10); Red Cell Dist. Width 15.5 % (11.5-14.5); White Blood Cell Count 3.5 10^3/uL (4.8-10.8)
== END ==
LOC: OIDL 15:46
PROVIDERS: ATTENDING PHYSICIAN Nurse Practitioner Adult Health
DX: D50.9 Iron deficiency anemia, unspecified (principal); D63.1 Anemia in chronic kidney disease; N18.30 Chronic kidney disease, stage 3 unspecified; D59.4 Other nonautoimmune hemolytic anemias
CPT/HCPCS: 85025

== ENCOUNTER → 2023-11-25 11:48 | Outpatient (REF) | payer OTHER, SELFPAY ==
[2023-11-25 15:41] LABS: % Eosinophils 3.7 % (0-6); % Immature Granulocytes 0.2 % (0-0.5); % Lymphocytes 18.2 % (20.5-51.1); % Monocytes 16.4 % (1.7-9.3); % Neutrophils 60.5 % (42.2-75.2); Absolute Eosinophils 0.2 10^3/uL (0-0.7); Absolute Lymphocytes 0.7 10^3/uL (1.2-3.4); Absolute Monocytes 0.7 10^3/uL (0.1-0.6); Absolute Neutrophils 2.4 10^3/uL (1.4-6.5); Hematocrit 33.5 % (39.0-52.0); Mean Corp Hgb Conc. 32.8 g/dL (33.0-37.0); Mean Corpuscular Hgb 32.9 pg (27.0-31.0); Mean Corpuscular Volume 100.3 fL (80.0-94.0); Mean Platelet Volume 10.6 fL (7.4-10.4); Nucleated Red Blood Cells % 0 % (-); Platelet Count 218 10^3/uL (130-400); Red Blood Cell Count 3.34 10^6/uL (4.70-6.10); Red Cell Dist. Width 15.7 % (11.5-14.5)
[2023-11-25 15:47] LABS: Iron 90 ug/dl (49-181)
[2023-11-25 15:56] LABS: Percent Saturation 29 % (20-50); Total Iron Binding Capacity 309 ug/dl (261-462)
== END ==
LOC: HWLAB 11:48
PROVIDERS: ATTENDING PHYSICIAN Internal Medicine Hematology & Oncology; FAMILY PHYSICIAN Family Medicine
DX: D50.9 Iron deficiency anemia, unspecified (principal); D63.1 Anemia in chronic kidney disease; N18.30 Chronic kidney disease, stage 3 unspecified; D59.4 Other nonautoimmune hemolytic anemias
CPT/HCPCS: 36415; 82728; 83540; 83550; 85025

== ENCOUNTER → 2023-11-29 16:06 | Outpatient (REF) | payer OTHER, SELFPAY ==
[2023-11-29 09:18] LABS: % Basophils 0.8 % (0-2); % Eosinophils 3.9 % (0-6); % Immature Granulocytes 0.4 % (0-0.5); % Lymphocytes 15.9 % (20.5-51.1); % Monocytes 10.8 % (1.7-9.3); % Neutrophils 68.2 % (42.2-75.2); Absolute Eosinophils 0.2 10^3/uL (0-0.7); Absolute Lymphocytes 0.8 10^3/uL (1.2-3.4); Absolute Monocytes 0.5 10^3/uL (0.1-0.6); Absolute Neutrophils 3.4 10^3/uL (1.4-6.5); Hematocrit 33.6 % (39.0-52.0); Mean Corp Hgb Conc. 32.7 g/dL (33.0-37.0); Mean Corpuscular Hgb 32.7 pg (27.0-31.0); Mean Platelet Volume 10.3 fL (7.4-10.4); Nucleated Red Blood Cells % 0 % (-); Platelet Count 216 10^3/uL (130-400); Red Blood Cell Count 3.36 10^6/uL (4.70-6.10); Red Cell Dist. Width 15.2 % (11.5-14.5); White Blood Cell Count 4.9 10^3/uL (4.8-10.8)
== END ==
LOC: OIDL 16:06
PROVIDERS: ATTENDING PHYSICIAN Nurse Practitioner Adult Health
DX: D50.9 Iron deficiency anemia, unspecified (principal)
CPT/HCPCS: 85025

== ENCOUNTER → 2023-12-03 06:47 | Outpatient (REF) | payer OTHER, SELFPAY ==
[2023-12-03 09:22] LABS: % Basophils 1.2 % (0-2); % Eosinophils 4.4 % (0-6); % Immature Granulocytes 0.2 % (0-0.5); % Lymphocytes 22.6 % (20.5-51.1); % Monocytes 12.7 % (1.7-9.3); % Neutrophils 58.9 % (42.2-75.2); Absolute Basophils 0.1 10^3/uL (0-0.2); Absolute Eosinophils 0.2 10^3/uL (0-0.7); Absolute Monocytes 0.6 10^3/uL (0.1-0.6); Absolute Neutrophils 2.6 10^3/uL (1.4-6.5); Hematocrit 34.8 % (39.0-52.0); Hemoglobin 11.6 g/dL (13.0-18.0); Mean Corp Hgb Conc. 33.3 g/dL (33.0-37.0); Mean Corpuscular Volume 102.1 fL (80.0-94.0); Mean Platelet Volume 10.5 fL (7.4-10.4); Nucleated Red Blood Cells % 0 % (-); Platelet Count 228 10^3/uL (130-400); Red Blood Cell Count 3.41 10^6/uL (4.70-6.10); Red Cell Dist. Width 14.8 % (11.5-14.5); White Blood Cell Count 4.3 10^3/uL (4.8-10.8)
== END ==
LOC: HWLAB 06:47
PROVIDERS: ATTENDING PHYSICIAN Internal Medicine Hematology & Oncology; FAMILY PHYSICIAN Family Medicine
DX: D50.9 Iron deficiency anemia, unspecified (principal); D63.1 Anemia in chronic kidney disease
CPT/HCPCS: 36415; 85025

== ENCOUNTER → 2023-12-16 10:37 | Outpatient (REF) | payer OTHER, SELFPAY ==
[2023-12-16 15:48] LABS: % Basophils 0.9 % (0-2); % Eosinophils 3.7 % (0-6); % Immature Granulocytes 0.6 % (0-0.5); % Lymphocytes 17.2 % (20.5-51.1); % Monocytes 13.8 % (1.7-9.3); % Neutrophils 63.8 % (42.2-75.2); Absolute Eosinophils 0.2 10^3/uL (0-0.7); Absolute Lymphocytes 0.8 10^3/uL (1.2-3.4); Absolute Monocytes 0.6 10^3/uL (0.1-0.6); Hematocrit 33.9 % (39.0-52.0); Hemoglobin 11.4 g/dL (13.0-18.0); Mean Corp Hgb Conc. 33.6 g/dL (33.0-37.0); Mean Corpuscular Hgb 34.4 pg (27.0-31.0); Mean Corpuscular Volume 102.4 fL (80.0-94.0); Mean Platelet Volume 11.2 fL (7.4-10.4); Nucleated Red Blood Cells % 0 % (-); Platelet Count 198 10^3/uL (130-400); Red Blood Cell Count 3.31 10^6/uL (4.70-6.10); White Blood Cell Count 4.7 10^3/uL (4.8-10.8)
== END ==
LOC: HWLAB 10:37
PROVIDERS: ATTENDING PHYSICIAN Internal Medicine Hematology & Oncology; FAMILY PHYSICIAN Family Medicine
DX: N18.30 Chronic kidney disease, stage 3 unspecified (principal); D50.9 Iron deficiency anemia, unspecified; D63.1 Anemia in chronic kidney disease; D59.4 Other nonautoimmune hemolytic anemias
CPT/HCPCS: 36415; 85025

== ENCOUNTER → 2023-12-24 10:50 | Outpatient (REF) | payer OTHER, SELFPAY ==
[2023-12-24 12:52] LABS: % Basophils 0.2 % (0-2); % Eosinophils 0.7 % (0-6); % Immature Granulocytes 0.2 % (0-0.5); % Lymphocytes 8.6 % (20.5-51.1); % Monocytes 15.7 % (1.7-9.3); % Neutrophils 74.6 % (42.2-75.2); Absolute Eosinophils 0.1 10^3/uL (0-0.7); Absolute Lymphocytes 0.7 10^3/uL (1.2-3.4); Absolute Monocytes 1.3 10^3/uL (0.1-0.6); Hematocrit 31.6 % (39.0-52.0); Hemoglobin 10.5 g/dL (13.0-18.0); Mean Corp Hgb Conc. 33.2 g/dL (33.0-37.0); Mean Corpuscular Hgb 32.5 pg (27.0-31.0); Mean Corpuscular Volume 97.8 fL (80.0-94.0); Mean Platelet Volume 10.7 fL (7.4-10.4); Nucleated Red Blood Cells % 0 % (-); Platelet Count 185 10^3/uL (130-400); Red Blood Cell Count 3.23 10^6/uL (4.70-6.10); Red Cell Dist. Width 13.7 % (11.5-14.5); White Blood Cell Count 8.1 10^3/uL (4.8-10.8)
[2023-12-24 13:07] LABS: Iron 35 ug/dl (49-181)
[2023-12-24 13:18] LABS: Percent Saturation 13 % (20-50); Total Iron Binding Capacity 263 ug/dl (261-462)
== END ==
LOC: HWLAB 10:50
PROVIDERS: ATTENDING PHYSICIAN Internal Medicine Hematology & Oncology; FAMILY PHYSICIAN Family Medicine
DX: D50.9 Iron deficiency anemia, unspecified (principal); D63.1 Anemia in chronic kidney disease; N18.30 Chronic kidney disease, stage 3 unspecified; D59.4 Other nonautoimmune hemolytic anemias
CPT/HCPCS: 36415; 82728; 83540; 83550; 85025

== ENCOUNTER → 2024-01-05 06:29 | Outpatient (REF) | payer OTHER, SELFPAY ==
[2024-01-05 09:39] LABS: % Basophils 0.9 % (0-2); % Eosinophils 4.2 % (0-6); % Immature Granulocytes 0.4 % (0-0.5); % Lymphocytes 19.7 % (20.5-51.1); % Monocytes 13.7 % (1.7-9.3); % Neutrophils 61.1 % (42.2-75.2); Absolute Basophils 0.1 10^3/uL (0-0.2); Absolute Eosinophils 0.2 10^3/uL (0-0.7); Absolute Lymphocytes 1.1 10^3/uL (1.2-3.4); Absolute Monocytes 0.8 10^3/uL (0.1-0.6); Absolute Neutrophils 3.5 10^3/uL (1.4-6.5); Hematocrit 33.2 % (39.0-52.0); Mean Corp Hgb Conc. 33.1 g/dL (33.0-37.0); Mean Corpuscular Hgb 32.4 pg (27.0-31.0); Mean Corpuscular Volume 97.6 fL (80.0-94.0); Mean Platelet Volume 9.9 fL (7.4-10.4); Nucleated Red Blood Cells % 0 % (-); Platelet Count 311 10^3/uL (130-400); White Blood Cell Count 5.7 10^3/uL (4.8-10.8)
[2024-01-05 09:58] LABS: Iron 66 ug/dl (49-181)
[2024-01-05 10:08] LABS: Percent Saturation 24 % (20-50); Total Iron Binding Capacity 270 ug/dl (261-462)
== END ==
LOC: HWLAB 06:29
PROVIDERS: ATTENDING PHYSICIAN Internal Medicine Hematology & Oncology; FAMILY PHYSICIAN Family Medicine
DX: N18.30 Chronic kidney disease, stage 3 unspecified (principal)
CPT/HCPCS: 36415; 82728; 83540; 83550; 85025

== ENCOUNTER → 2024-01-21 07:00 | Outpatient (REF) | payer OTHER, SELFPAY ==
[2024-01-21 09:09] LABS: % Basophils 0.6 % (0-2); % Eosinophils 4.5 % (0-6); % Immature Granulocytes 0.2 % (0-0.5); % Monocytes 13.4 % (1.7-9.3); % Neutrophils 66.3 % (42.2-75.2); Absolute Eosinophils 0.2 10^3/uL (0-0.7); Absolute Lymphocytes 0.7 10^3/uL (1.2-3.4); Absolute Monocytes 0.7 10^3/uL (0.1-0.6); Absolute Neutrophils 3.3 10^3/uL (1.4-6.5); Hematocrit 33.3 % (39.0-52.0); Hemoglobin 11.2 g/dL (13.0-18.0); Mean Corp Hgb Conc. 33.6 g/dL (33.0-37.0); Mean Corpuscular Hgb 33.8 pg (27.0-31.0); Mean Corpuscular Volume 100.6 fL (80.0-94.0); Mean Platelet Volume 10.2 fL (7.4-10.4); Nucleated Red Blood Cells % 0 % (-); Platelet Count 223 10^3/uL (130-400); Red Blood Cell Count 3.31 10^6/uL (4.70-6.10); Red Cell Dist. Width 14.2 % (11.5-14.5); White Blood Cell Count 4.9 10^3/uL (4.8-10.8)
[2024-01-21 09:14] LABS: Iron 63 ug/dl (49-181)
[2024-01-21 09:23] LABS: Percent Saturation 23 % (20-50); Total Iron Binding Capacity 272 ug/dl (261-462)
== END ==
LOC: HWLAB 07:00
PROVIDERS: ATTENDING PHYSICIAN Internal Medicine Hematology & Oncology; FAMILY PHYSICIAN Family Medicine
DX: N18.30 Chronic kidney disease, stage 3 unspecified (principal); D50.9 Iron deficiency anemia, unspecified; D63.1 Anemia in chronic kidney disease; D59.4 Other nonautoimmune hemolytic anemias
CPT/HCPCS: 36415; 82728; 83540; 83550; 85025

== ENCOUNTER → 2024-01-27 10:34 | Outpatient (REF) | payer OTHER, SELFPAY ==
[2024-01-27 12:27] LABS: % Basophils 0.8 % (0-2); % Immature Granulocytes 0.2 % (0-0.5); % Lymphocytes 19.1 % (20.5-51.1); % Monocytes 11.4 % (1.7-9.3); % Neutrophils 64.5 % (42.2-75.2); Absolute Eosinophils 0.2 10^3/uL (0-0.7); Absolute Lymphocytes 0.9 10^3/uL (1.2-3.4); Absolute Monocytes 0.5 10^3/uL (0.1-0.6); Hemoglobin 11.2 g/dL (13.0-18.0); Mean Corpuscular Hgb 32.7 pg (27.0-31.0); Mean Corpuscular Volume 102.3 fL (80.0-94.0); Nucleated Red Blood Cells % 0 % (-); Platelet Count 233 10^3/uL (130-400); Red Blood Cell Count 3.42 10^6/uL (4.70-6.10); Red Cell Dist. Width 14.1 % (11.5-14.5); White Blood Cell Count 4.7 10^3/uL (4.8-10.8)
[2024-01-27 12:32] LABS: INR 1.45; PT 18.2 Sec (11.4-14.6)
[2024-01-27 12:34] LABS: Iron 85 ug/dl (49-181)
[2024-01-27 12:43] LABS: Percent Saturation 30 % (20-50); Total Iron Binding Capacity 276 ug/dl (261-462)
== END ==
LOC: HWLAB 10:34
PROVIDERS: ATTENDING PHYSICIAN Internal Medicine Hematology & Oncology; FAMILY PHYSICIAN Family Medicine; REFERRING PHYSICIAN Internal Medicine Cardiovascular Disease
DX: D50.9 Iron deficiency anemia, unspecified (principal); D63.1 Anemia in chronic kidney disease; N18.30 Chronic kidney disease, stage 3 unspecified; D59.4 Other nonautoimmune hemolytic anemias; I42.9 Cardiomyopathy, unspecified; I48.21 Permanent atrial fibrillation; Z95.2 Presence of prosthetic heart valve
CPT/HCPCS: 36415; 82728; 83540; 83550; 85025; 85610

== ENCOUNTER → 2024-02-23 08:20 | Outpatient (REF) | payer OTHER, SELFPAY ==
[2024-02-23 08:50] LABS: % Basophils 0.8 % (0-2); % Eosinophils 3.3 % (0-6); % Immature Granulocytes 0.2 % (0-0.5); % Lymphocytes 18.5 % (20.5-51.1); % Monocytes 12.7 % (1.7-9.3); % Neutrophils 64.5 % (42.2-75.2); Absolute Eosinophils 0.2 10^3/uL (0-0.7); Absolute Monocytes 0.7 10^3/uL (0.1-0.6); Absolute Neutrophils 3.3 10^3/uL (1.4-6.5); Hematocrit 35.6 % (39.0-52.0); Hemoglobin 11.6 g/dL (13.0-18.0); Mean Corp Hgb Conc. 32.6 g/dL (33.0-37.0); Mean Corpuscular Hgb 32.7 pg (27.0-31.0); Mean Corpuscular Volume 100.3 fL (80.0-94.0); Mean Platelet Volume 9.4 fL (7.4-10.4); Platelet Count 197 10^3/uL (130-400); Red Blood Cell Count 3.55 10^6/uL (4.70-6.10); Red Cell Dist. Width 13.5 % (11.5-14.5); White Blood Cell Count 5.1 10^3/uL (4.8-10.8)
[2024-02-23 12:05] LABS: Iron 70 ug/dl (49-181)
[2024-02-23 12:15] LABS: Percent Saturation 23 % (20-50); Total Iron Binding Capacity 300 ug/dl (261-462)
== END ==
LOC: OIDL 08:20
PROVIDERS: ATTENDING PHYSICIAN Internal Medicine Hematology & Oncology
DX: D50.9 Iron deficiency anemia, unspecified (principal); D63.1 Anemia in chronic kidney disease; N18.30 Chronic kidney disease, stage 3 unspecified
CPT/HCPCS: 36415; 82728; 83540; 83550; 85025

== ENCOUNTER → 2024-03-03 11:52 | Outpatient (REF) | payer OTHER, SELFPAY ==
[2024-03-03 15:21] LABS: % Basophils 0.7 % (0-2); % Eosinophils 3.6 % (0-6); % Immature Granulocytes 0.4 % (0-0.5); % Lymphocytes 18.2 % (20.5-51.1); % Monocytes 13.1 % (1.7-9.3); Absolute Eosinophils 0.2 10^3/uL (0-0.7); Absolute Monocytes 0.7 10^3/uL (0.1-0.6); Absolute Neutrophils 3.5 10^3/uL (1.4-6.5); Hematocrit 34.5 % (39.0-52.0); Mean Corp Hgb Conc. 31.9 g/dL (33.0-37.0); Mean Corpuscular Hgb 32.5 pg (27.0-31.0); Mean Corpuscular Volume 102.1 fL (80.0-94.0); Mean Platelet Volume 10.7 fL (7.4-10.4); Nucleated Red Blood Cells % 0 % (-); Platelet Count 189 10^3/uL (130-400); Red Blood Cell Count 3.38 10^6/uL (4.70-6.10); Red Cell Dist. Width 13.6 % (11.5-14.5); White Blood Cell Count 5.5 10^3/uL (4.8-10.8)
[2024-03-03 15:35] LABS: Iron 89 ug/dl (49-181)
[2024-03-03 15:45] LABS: Percent Saturation 31 % (20-50); Total Iron Binding Capacity 282 ug/dl (261-462)
== END ==
LOC: HWLAB 11:52
PROVIDERS: ATTENDING PHYSICIAN Internal Medicine Hematology & Oncology; FAMILY PHYSICIAN Family Medicine
DX: D50.9 Iron deficiency anemia, unspecified (principal); N18.30 Chronic kidney disease, stage 3 unspecified; D63.1 Anemia in chronic kidney disease; D59.4 Other nonautoimmune hemolytic anemias; D64.9 Anemia, unspecified
CPT/HCPCS: 36415; 82728; 83540; 83550; 85025

== ENCOUNTER → 2024-03-31 06:18 | Outpatient (REF) | payer OTHER, SELFPAY ==
[2024-03-31 09:52] LABS: INR 3.27; PT 33.1 Sec (11.4-14.6)
== END ==
LOC: HWLAB 06:18
PROVIDERS: ATTENDING PHYSICIAN Internal Medicine Cardiovascular Disease; FAMILY PHYSICIAN Family Medicine
DX: Z95.2 Presence of prosthetic heart valve (principal); Z86.73 Personal history of transient ischemic attack (TIA), and cerebral infarction without residual deficits
CPT/HCPCS: 36415; 85610

== ENCOUNTER → 2024-04-03 07:14 | Outpatient (REF) | payer OTHER, SELFPAY | LOC: HWRCS 07:14 | PROVIDERS: ATTENDING PHYSICIAN Physician Assistant Medical; FAMILY PHYSICIAN Family Medicine | DX: Z95.2 Presence of prosthetic heart valve (principal) | CPT/HCPCS: 93306 ==

== ENCOUNTER → 2024-04-05 10:50 | Outpatient (REF) | payer OTHER, SELFPAY | LOC: HWRAD 10:50 | PROVIDERS: ATTENDING PHYSICIAN Family Medicine | DX: M54.2 Cervicalgia (principal) | CPT/HCPCS: 72050 ==

== ENCOUNTER 2024-04-19 07:54 | Inpatient (IN) | payer OTHER, SELFPAY ==
[2024-04-13 10:43] LABS: Hematocrit 35.6 % (39.0-52.0); Hemoglobin 11.5 g/dL (13.0-18.0); Mean Corp Hgb Conc. 32.3 g/dL (33.0-37.0); Mean Corpuscular Volume 99.2 fL (80.0-94.0); Mean Platelet Volume 10.1 fL (7.4-10.4); Platelet Count 218 10^3/uL (130-400); Red Blood Cell Count 3.59 10^6/uL (4.70-6.10); Red Cell Dist. Width 13.9 % (11.5-14.5)
[2024-04-13 10:51] LABS: INR 2.13; PT 24.3 Sec (11.4-14.6)
[2024-04-13 10:53] LABS: APTT 38.1 Sec (23.4-35.0)
[2024-04-13 11:08] LABS: Blood Urea Nitrogen 48 mg/dl (9-20); Calcium 9.6 mg/dl (8.4-10.2); Carbon Dioxide 32 mmol/L (22-30); Chloride 98 mmol/L (98-107); Glucose 86 mg/dl (70-99); Potassium 4.7 mmol/L (3.5-5.1); Sodium 136 mmol/L (135-145); eGFR 54.17
--- NOTE | 2024-04-13 11:12 | PTCARENOTE ---
Patients 2/6 INR 2.13- Tamela @ Dr Gamble office notified
[2024-04-13 12:51] VITALS: BMI 22.5
[2024-04-17] VITALS (18 sets, daily range): BP systolic 101–155; BP diastolic 30–75; BMI 22.5; BMI 23.4
--- NOTE | 2024-04-17 08:19 | HP.FOC2 ---
Focused History & Physical
Chief Complaint
HPI:
Chief Complaint: Recurrent right inguinal hernia, epigastric hernia, umbilical hernia
HPI / Indication for Planned Procedure: Patient is an 83-year-old male with known history of a ventral/umbilical and recurrent right inguinal hernia. He has had a longstanding history of small protrusion in the upper abdominal, umbilical region and
right inguinal area.
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 He is on Coumadin for chronic anticoagulation therapy for his mechanical valves as well as a history
of atrial fibrillation. Also chronic iron deficiency anemia of uncertain source/etiology.
He presents today for operative correction of his various hernias.
Relevant Past Medical History: Other (Hypothyroidism, rheumatic fever as a child, compressive fracture of the lumbar spine, TIA, A-fib, chronic iron deficiency anemia, CHF)
Relevant Social History: Negative
Relevant Family History: Negative
Relevant Past Surgical History: Positive for (Bilateral inguinal hernia repairs, left total knee replacement, MVR/AVR)
Review of Systems
Review of Pertinent Systems: All Systems Negative
Medication
See Medication form for detailed medications: Yes
Medication List (including Herbals & OTC):
warfarin 5 mg tablet (Jantoven) 5 mg PO QPM Blood clot prevention/tx 08/13/21
atorvastatin 40 mg tablet 40 mg PO QPM High cholesterol 07/22/22
digoxin 125 mcg (0.125 mg) tablet 125 mcg PO DAILY Arrhythmia 07/22/22
ferrous sulfate 325 mg (65 mg iron) tablet 325 mg PO HS Supplement 07/22/22
folic acid 1 mg tablet 1 mg PO DAILY Supplement 07/22/22
furosemide 40 mg tablet 40 mg PO DAILY Fluid retention/Swelling 07/22/22
sacubitril 24 mg-valsartan 26 mg tablet (Entresto) 1 tab PO BID Heart Failure 07/22/22
carvedilol 6.25 mg tablet 3.125 mg PO BID 09/13/23
coenzyme Q10 100 mg capsule (CoQ-10) 300 mg PO DAILY 09/13/23
diltiazem HCl 120 mg tablet 120 mg PO QPM 09/13/23
omega 1-olt-gff-fish oil 1,000 mg (120 mg-180 mg) capsule (Fish Oil) 2 cap PO DAILY 09/13/23
aspirin 81 mg chewable tablet (Aspirin Childrens) 81 mg PO Q48H 11/01/23
cholecalciferol (vitamin D3) 50 mcg (2,000 unit) capsule (Vitamin D3) 50 mcg PO DAILY 11/01/23
garlic 300 mg capsule 600 mg PO QPM 11/01/23
levothyroxine 37.5 mcg capsule 37.5 mcg PO DAILY 11/01/23
Basis Combination 1 dose PO DAILY 04/13/24
spironolactone 25 mg tablet 25 mg PO DAILY 04/13/24
Medications Reviewed: Yes
Allergies and Reactions
Patient has Allergies: Yes
Noted Allergies and Reactions:
Allergy/AdvReac Type Severity Reaction Status Date / Time
meperidine [From Demerol] Allergy Anaphylaxis Verified 04/13/24 12:13
Pertinent Physical Exam
All Other Systems: Negative
Head/Neck: Normal
Lungs: Normal
Heart: Normal
Abdomen: Other (Ventral hernia, supraumbilical hernia, right inguinal hernia)
Extremities: Normal
Neurological: Normal
Diagnosis / Assessment
83-year-old male presenting for scheduled operative correction of his umbilical, ventral and right inguinal hernias
Plan / Procedure
Open ventral/umbilical hernia repairs with possible mesh. Robotic assisted laparoscopic repair right inguinal hernia with mesh.
Anesthesia/Sedation to be done by Anesthesia Provider: Yes
[2024-04-17] MEDS: TYLENOL 1000 MG PO (09:46)
[2024-04-17] MEDS: NORMOSOL-R/PLASMALYTE-A 1000 IV (09:51)
[2024-04-17 10:05] LABS: INR 1.17; PT 15.2 Sec (11.4-14.6)
--- NOTE | 2024-04-17 14:22 | W.SUR.PREOP ---
Pre-Operative Surgical Note
-
I have examined this patient prior to the performance of the scheduled procedure.
The patient's condition is unchanged from the time of the current History and
Physical and the patient is able to undergo the scheduled procedure.
--- NOTE | 2024-04-17 17:21 | W.IMMPOSTOP ---
Addendum entered and electronically signed by Jimmy Gu MD 04/18/24 15:50:
#[id number]
Original Note:
Surgical Immed Post Op Note
-
Primary Surgeon: Jimmy Gu MD
Assisting Surgeon: Dasia JIM
Pre-op Diagnosis: Umbilical hernia
Ventral hernia
Recurrent RIH
Post-op Diagnosis: Umbilical hernia 8mm
Ventral hernia 1.2cm
Recurrent RIH - direct
Procedure Performed: open primary UHR
open primary VHR
RAL TEX RIH repair with mesh; 3D max large mid weight
Anesthesia Type: GETA +0.25% Marcaine with epi
Specimen / Cultures: None
Estimated Blood Loss: 8 mL
Complications: None immediate
Operative Findings: Umbilical hernia containing preperitoneal fat and peritoneum. Fascial defect 8 mm maximal length. Repaired with 2 [id number] buried 0 PDS sutures
Ventral hernia, 12 mm maximal length fascial defect utilized as epigastric 8 mm trocar site as well; repaired primarily with buried [id number] 0 PDS stitch x 3
Recurrent right direct inguinal hernia. Indirect and femoral spaces normal. Plication of attenuated right direct pseudosac with 2-0 PDS. 3D max large mid weight mesh repair secured to Allen's ligament with 2-0 Vicryl stitch x 2. Robotic
assisted laparoscopic TEX repair
Plan: Patient will be admitted postoperatively as he needs a heparin bridge to therapeutic INR on Coumadin in the setting of a prosthetic mitral valve/aortic valve
--- NOTE | 2024-04-17 20:19 | PTCARENOTE ---
Pt arrived from PACU. AAOx3, VSS. 4 surgical sites intact with surgical glue. LLQ bruising observed which was prior to surgery per patient. Patient oriented to the room, call helton is within reach.
[2024-04-17] MEDS: ENTRESTO 24 MG/26 MG 1 TAB PO (20:47)
[2024-04-17] MEDS: LIPITOR 40 MG PO (20:48)
[2024-04-17] MEDS: COUMADIN PO (20:48)
[2024-04-17] MEDS: COREG 3.125 MG PO (20:48)
[2024-04-17] MEDS: ROXICODONE 5 MG PO (20:48)
[2024-04-17] MEDS: NSS 1000 IV (20:49)
[2024-04-17] MEDS: COUMADIN 5 MG PO (20:51)
[2024-04-18] VITALS (8 sets, daily range): BP systolic 128–147; BP diastolic 59–72; BMI 23.4
[2024-04-18] MEDS: SYNTHROID 37.5 MCG PO (05:46)
--- NOTE | 2024-04-18 06:59 | W.PN.GS2 ---
Today's Communication / Plan
-
`
Assessment / Plan
-
Assessment: 83 y/o male POD#1 s/p open UHR/open VHR/RAL repair recurrent RIH with mesh.
AFVSS
doing well post op
AM labs pending
Plan: pt to start heparin gtt today in PM as a bridge to Coumadin post op
avoiding Lovenox for initial 48-72hrs post op due to increased risk of bleeding with therapeutic lovenox
otherwise on home meds
diet as tolerated
ambulate/OOBTC
SCDs/ambulation and heparin gtt for VTEp
Subjective Data
-
Date of Service: April 18, 2024
pt seen and examined this AM
states feels great
denies any significant post op pain
Objective Data
-
Intake and Output
04/16/24 04/17/24 04/18/24
06:59 06:59 06:59
Intake Total 200 / 200
Balance 200 / 200
Intake:
IV fluids (Total) 200 / 200
Normosol 200 / 200
Vital Signs
Temp Pulse Resp BP Pulse Ox
98.3 F 78 19 135/63 97
04/18/24 02:30 04/18/24 02:30 04/18/24 02:30 04/18/24 02:30 04/18/24 02:30
Calcium 9.6 mg/dl (8.4-10.2) 04/13/24 08:23
Physical Exam
-
NAD AAOx3
ABD: soft, ND, mild TTP at incision sites
incisions with glue dressing, some localized ecchymosis
LLQ ecchymosis from lovenox shots preop
[2024-04-18 07:33] LABS: PT 15.5 Sec (11.4-14.6)
[2024-04-18 07:49] LABS: Blood Urea Nitrogen 27 mg/dl (9-20); Calcium 8.6 mg/dl (8.4-10.2); Carbon Dioxide 28 mmol/L (22-30); Chloride 101 mmol/L (98-107); Estimated Creatinine Clearance 55 ml/min; Glucose 144 mg/dl (70-99); Potassium 5.1 mmol/L (3.5-5.1); Sodium 136 mmol/L (135-145); eGFR > 60.00
[2024-04-18 07:50] LABS: Hematocrit 33.2 % (39.0-52.0); Hemoglobin 10.8 g/dL (13.0-18.0); Mean Corp Hgb Conc. 32.5 g/dL (33.0-37.0); Mean Corpuscular Hgb 32.6 pg (27.0-31.0); Mean Corpuscular Volume 100.3 fL (80.0-94.0); Mean Platelet Volume 10.2 fL (7.4-10.4); Platelet Count 174 10^3/uL (130-400); Red Blood Cell Count 3.31 10^6/uL (4.70-6.10); Red Cell Dist. Width 14.5 % (11.5-14.5); White Blood Cell Count 9.3 10^3/uL (4.8-10.8)
[2024-04-18] MEDS: ENTRESTO 24 MG/26 MG 1 TAB PO ×2 (08:35→21:46)
[2024-04-18] MEDS: LOW STRENGTH ASPIRIN 81 MG PO (08:35)
[2024-04-18] MEDS: ALDACTONE 25 MG PO (08:35)
[2024-04-18] MEDS: COLACE 100 MG PO (08:35)
[2024-04-18] MEDS: LASIX 40 MG PO (08:36)
[2024-04-18] MEDS: COREG 3.125 MG PO ×2 (08:36→21:45)
[2024-04-18] MEDS: VITAMIN D3 (cholecalciferol) 50 MCG PO (08:36)
[2024-04-18] MEDS: FOLVITE 1 MG PO (08:36)
[2024-04-18] MEDS: LANOXIN 125 MCG PO (11:55)
[2024-04-18 16:34] LABS: APTT 27.7 Sec (23.4-35.0)
[2024-04-18] MEDS: HEPARIN 25000 UNITS/250 ML IV (17:04)
[2024-04-18] MEDS: COUMADIN 5 MG PO (18:03)
[2024-04-18] MEDS: LIPITOR 40 MG PO (18:03)
[2024-04-18] MEDS: TYLENOL 650 MG PO (19:46)
[2024-04-18] MEDS: COLACE PO (21:45)
[2024-04-18] MEDS: CARDIZEM CD 120 MG PO (21:55)
[2024-04-18 23:59] LABS: APTT 41.7 Sec (23.4-35.0)
[2024-04-19] MEDS: SYNTHROID 37.5 MCG PO (05:43)
[2024-04-19 06:00] VITALS: BMI 22.7
[2024-04-19 06:58] LABS: APTT 53.8 Sec (23.4-35.0)
[2024-04-19 07:30] VITALS: BP 143/74
--- NOTE | 2024-04-19 08:22 | W.PN.GS2 ---
Today's Communication / Plan
-
`
Assessment / Plan
-
Assessment: 83 y/o male POD#2 s/p open UHR/open VHR/RAL repair recurrent RIH with mesh.
AFVSS
doing well post op
Therapeutic heparin drip initiated yesterday afternoon. No signs of postoperative hematoma or bleeding.
Postop hemoglobin stable 10.8, baseline around 11 with known history of chronic iron deficiency anemia.
Plan: Maintain heparin drip as bridge to Coumadin post op
avoiding Lovenox for initial 48-72hrs post op due to increased risk of bleeding with therapeutic Lovenox
Check INR and CBC tomorrow a.m.
otherwise on home meds
diet as tolerated
MiraLAX for bowel regimen postop
ambulate/OOBTC
SCDs/ambulation and heparin gtt for VTEp
Subjective Data
-
Date of Service: April 19, 2024
Patient seen and examined. Offers no complaints. Minimal postoperative discomfort, no pain. Tolerating dietary intake. Passing flatus, no BM yet. Ambulating halls.
Objective Data
-
Intake and Output
04/18/24 04/19/24 04/20/24
06:59 06:59 06:59
Intake Total 1880 / 1880 720 / 720
Output Total 450 / 450
Balance 1430 / 1430 720 / 720
Intake:
Oral fluids 960 / 960 720 / 720
IV fluids (Total) 920 / 920
Normosol 200 / 200
Output:
Urine, Voided 450 / 450
Other:
Number of approximated MODERATE 2 3
amounts of urine
How many times incontinent 1
MODERATE amount urine
Vital Signs
Temp Pulse Resp BP Pulse Ox
98.5 F 72 20 132/60 97
04/18/24 23:30 04/18/24 23:30 04/18/24 23:30 04/18/24 23:30 04/18/24 23:30
Lab Results
04/18/24 06:32
04/18/24 06:32
Calcium 8.6 mg/dl (8.4-10.2) 04/18/24 06:32
Physical Exam
-
NAD AAOx3
ABD: Soft, nondistended, surgical sites with minimal ecchymosis. Left lower quadrant ecchymosis stable. Inguinal examination without seromas or visible ecchymosis. No hematomas.
Patient has a ceballos catheter: No
[2024-04-19] MEDS: LASIX 40 MG PO (08:30)
[2024-04-19] MEDS: FOLVITE 1 MG PO (08:30)
[2024-04-19] MEDS: ENTRESTO 24 MG/26 MG 1 TAB PO ×2 (08:30→20:38)
[2024-04-19] MEDS: MIRALAX 17 GRAMS PO (08:31)
[2024-04-19] MEDS: COREG 3.125 MG PO ×2 (08:31→20:38)
[2024-04-19] MEDS: ALDACTONE 25 MG PO (08:31)
[2024-04-19] MEDS: VITAMIN D3 (cholecalciferol) 50 MCG PO (08:31)
[2024-04-19] MEDS: TYLENOL 650 MG PO ×2 (08:31→21:45)
--- NOTE | 2024-04-19 09:03 | CM ---
Alert awake oriented patient who lives with his Janet who lives in a 2 story home with 5 step to enter and 8 steps to bed and bathroom. He is independent in driving and in all activities of daily living G[employer] WORK[employer].He was offered VN he declined need.His
will drive him home. Postop hernia repair.
[facility] hx / No SNF history
Pharmacy [facility]
PCP DR Martinez
PLAN Home Declined VN
[2024-04-19] MEDS: LANOXIN 125 MCG PO (12:06)
[2024-04-19 13:35] LABS: APTT 62.5 Sec (23.4-35.0)
[2024-04-19 15:35] VITALS: BP 122/58
[2024-04-19] MEDS: HEPARIN 25000 UNITS/250 ML IV (15:47)
[2024-04-19] MEDS: CARDIZEM CD 120 MG PO (17:26)
[2024-04-19] MEDS: LIPITOR 40 MG PO (17:33)
[2024-04-19] MEDS: COUMADIN 5 MG PO (17:33)
[2024-04-19] MEDS: DULCOLAX 5 MG PO (21:45)
[2024-04-19 23:54] VITALS: BP 116/59
[2024-04-20 03:01] LABS: APTT 134.8 Sec (23.4-35.0)
[2024-04-20] MEDS: SYNTHROID 37.5 MCG PO (04:43)
[2024-04-20 06:00] VITALS: BMI 22.6
[2024-04-20] MEDS: TYLENOL 650 MG PO (06:08)
[2024-04-20 07:15] VITALS: BP 125/63
[2024-04-20 07:54] LABS: Hematocrit 30.2 % (39.0-52.0); Mean Corp Hgb Conc. 33.1 g/dL (33.0-37.0); Mean Corpuscular Hgb 32.2 pg (27.0-31.0); Mean Corpuscular Volume 97.1 fL (80.0-94.0); Mean Platelet Volume 10.3 fL (7.4-10.4); Platelet Count 202 10^3/uL (130-400); Red Blood Cell Count 3.11 10^6/uL (4.70-6.10); Red Cell Dist. Width 14.8 % (11.5-14.5); White Blood Cell Count 7.2 10^3/uL (4.8-10.8)
[2024-04-20 07:58] LABS: INR 1.53; PT 18.9 Sec (11.4-14.6)
[2024-04-20] MEDS: ALDACTONE 25 MG PO (08:54)
[2024-04-20] MEDS: LOW STRENGTH ASPIRIN 81 MG PO (08:54)
[2024-04-20] MEDS: ENTRESTO 24 MG/26 MG 1 TAB PO (08:54)
[2024-04-20] MEDS: COREG 3.125 MG PO (08:54)
[2024-04-20] MEDS: VITAMIN D3 (cholecalciferol) 50 MCG PO (08:54)
[2024-04-20] MEDS: LASIX 40 MG PO (08:54)
[2024-04-20] MEDS: FOLVITE 1 MG PO (08:54)
[2024-04-20] MEDS: MIRALAX PO (08:55)
--- NOTE | 2024-04-20 09:14 | W.PN.GS2 ---
Today's Communication / Plan
-
DC planning for today
Heparin drip to stop, Lovenox injections at home already arranged, continue Coumadin until therapeutic on INR. Patient monitors INR at home
Assessment / Plan
-
Assessment: 83 y/o male POD#3 s/p open UHR/open VHR/RAL repair recurrent RIH with mesh.
AFVSS
doing well post op
Therapeutic heparin drip No signs of postoperative hematoma or bleeding.
Postop hemoglobin stable 10, baseline around 11 with known history of chronic iron deficiency anemia.
Plan: heparin drip as bridge to Coumadin post op
Stop heparin drip at 3 PM today 04/20/2024 and DC home -advised patient to administer first dose of therapeutic Lovenox 3 hours after heparin drip discontinued approximately 6 PM this evening
otherwise on home meds
diet as tolerated
MiraLAX for bowel regimen postop
ambulate/OOBTC
SCDs/ambulation and heparin gtt for VTEp
Subjective Data
-
Date of Service: April 20, 2024
Patient seen and examined.
Mild postoperative discomfort at surgical site stable as well as visible bruising. Ambulating.
Tolerating p.o. intake
BM this a.m.
Objective Data
-
Intake and Output
04/19/24 04/20/24 04/21/24
06:59 06:59 06:59
Intake Total 720 / 720 720 / 720
Balance 720 / 720 720 / 720
Intake:
Oral fluids 720 / 720 720 / 720
Other:
Number of approximated MODERATE 3 3
amounts of urine
How many times incontinent 1
MODERATE amount urine
Vital Signs
Temp Pulse Resp BP Pulse Ox
97.8 F 71 18 116/59 97
04/19/24 23:54 04/19/24 23:54 04/19/24 23:54 04/19/24 23:54 04/19/24 23:54
Lab Results
04/20/24 07:18
04/18/24 06:32
Calcium 8.6 mg/dl (8.4-10.2) 04/18/24 06:32
Physical Exam
-
NAD AAOx3
ABD: Soft, nondistended, localized soft tissue swelling and ecchymosis at surgical sites but no developing hematomas suspected.
Incisions with surgical glue dressing.
Right inguinal examination soft, no hematoma, no seroma, light ecchymosis around the scrotal region
--- NOTE | 2024-04-20 10:13 | PTCARENOTE ---
Addendum entered by Katherine Nuñez RN 04/20/24 15:48:
Heparin gtt stopped at 1500. Patient left via wheelchair with staff escort. present to transport patient home.
Original Note:
Reviewed discharge instructions with patient. Patient verbalizes all teaching and understands to call surgeon office with any signs of infection. Patient also verbalizes understanding of surgical site care. Denies questions at this time. Patient
given written discharge instructions. Heparin drip to be discontinued at 1500 and then patient will administer Lovenox injection will be given by patient at home at 1800. Patient understands and is proficient in injections.
[2024-04-20] MEDS: LANOXIN 125 MCG PO (11:17)
[2024-04-20] MEDS: HEPARIN 25000 UNITS/250 ML IV (12:08)
--- NOTE | 2024-04-20 13:50 | CM ---
Patient seen at bedside. IMM completed and signed form placed on chart. Patient stated that he will have a ride at 3pm with family and does not anticipate any VN needs. CM will continue to follow for discharge planning needs.
Plan; home with no needs anticipated.
[2024-04-20 15:04] VITALS: BP 120/59
== END 2024-04-20 16:13 | disposition home or self-care (01) | DRG 352 ==
LOC: 4 EAST ACU 07:54
PROVIDERS: Nurse Practitioner Gerontology; ADMITTING PHYSICIAN Surgery; FAMILY PHYSICIAN Family Medicine
PROC: 8E0W4CZ Robotic Assisted Procedure of Trunk Region, Percutaneous Endoscopic Approach (ICD-10-PCS; 2024-04-18)
PROC: 0YU54JZ Supplement Right Inguinal Region with Synthetic Substitute, Percutaneous Endoscopic Approach (ICD-10-PCS; 2024-04-18)
PROC: 0WQF0ZZ Repair Abdominal Wall, Open Approach (ICD-10-PCS; 2024-04-18)
DX: K40.91 Unilateral inguinal hernia, without obstruction or gangrene, recurrent (principal); K42.9 Umbilical hernia without obstruction or gangrene; K43.9 Ventral hernia without obstruction or gangrene; I48.91 Unspecified atrial fibrillation; D50.9 Iron deficiency anemia, unspecified; E03.9 Hypothyroidism, unspecified; Z96.652 Presence of left artificial knee joint; Z86.19 Personal history of other infectious and parasitic diseases; Z86.73 Personal history of transient ischemic attack (TIA), and cerebral infarction without residual deficits; Z79.82 Long term (current) use of aspirin; Z79.890 Hormone replacement therapy; Z95.2 Presence of prosthetic heart valve; Z79.01 Long term (current) use of anticoagulants
CPT/HCPCS: 36415; 80048; 85027; 85610; 85730; 87070; C1781

== ENCOUNTER 2024-04-21 03:49 | Inpatient (IN) | payer OTHER, SELFPAY ==
[2024-04-20 21:02] VITALS: BP 120/90
[2024-04-20 21:32] VITALS: BP 124/80
[2024-04-20 21:43] LABS: % Basophils 0.5 % (0-2); % Immature Granulocytes 0.8 % (0-0.5); % Lymphocytes 11.7 % (20.5-51.1); % Monocytes 12.5 % (1.7-9.3); % Neutrophils 73.5 % (42.2-75.2); Absolute Eosinophils 0.1 10^3/uL (0-0.7); Absolute Immature Granulocytes 0.1 10^3/uL (0-0.05); Absolute Monocytes 1.1 10^3/uL (0.1-0.6); Absolute Neutrophils 6.5 10^3/uL (1.4-6.5); Hematocrit 28.4 % (39.0-52.0); Hemoglobin 9.5 g/dL (13.0-18.0); Mean Corp Hgb Conc. 33.5 g/dL (33.0-37.0); Mean Corpuscular Hgb 32.6 pg (27.0-31.0); Mean Corpuscular Volume 97.6 fL (80.0-94.0); Mean Platelet Volume 9.7 fL (7.4-10.4); Nucleated Red Blood Cells % 0 % (-); Platelet Count 199 10^3/uL (130-400); Red Blood Cell Count 2.91 10^6/uL (4.70-6.10); Red Cell Dist. Width 14.8 % (11.5-14.5); White Blood Cell Count 8.8 10^3/uL (4.8-10.8)
--- NOTE | 2024-04-20 21:43 | ED.GENMED ---
History of Present Illness
General
Chief Complaint: Post Operative Problem(s)
Source: patient
Exam Limitations: none
Time Seen by Provider: 04/20/24 21:39
History of Present Illness
History of Present Illness:
See MDM
Past History
Past History
ED Past Medical History: Arrthythmia (Atrial fibrillation), CVA and Other (Pneumonia, aortic valve replacement, mitral valve replacement, anemia)
ED Past Surgical History: Cardiac
Social History
Tobacco: Non-smoker
Alcohol: None
Drug: None
Personal:
Living: with family
Phy Exam
Physical Exam
Physical Exam:
See MDM
Course
Orders/Labs/Results
Orders:
Orders
04/20/24 21:34
CMP [Comprehensive Metabolic Panel] Urgent
Complete Blood Count/With Diff Urgent
04/20/24 21:39
EKG [Electrocardiogram (*1)] Urgent
Reason for Study: Tachycardia
04/20/24 21:40
EKG- Treatment ONCE
04/20/24 21:41
Iohexol [Omnipaque] See Protocol PO NOW STA
Morphine Sulfate 4 mg IV NOW STA
04/20/24 21:56
Ondansetron Injectable [Zofran] 4 mg .ROUTE .STK-MED ONE
04/20/24 22:03
Ondansetron Injectable [Zofran] 4 mg IV NOW STA
04/20/24 22:09
Lactic Acid Q4H
Comment: CANCEL 2nd LACTIC ACID IF 1st LACTIC ACID IS LESS THAN 2
Prothrombin Time Urgent
04/21/24 00:05
CT Abd/pel W Iv And Oral Contr Urgent
Reason For Exam: recent hernia repair, worsening left abd pain
04/21/24 00:56
Phytonadione [Aquamephyton] 10 mg 0.9% Sodium Chloride 50 ml [Nss] 50 ml IV NOW
Prothrombin Complex(Pcc),Human [Kcentra] 1,727.5 unit Empty Viaflex Container 100 ml [Viaflex Empty Container] 0 ml IV NOW
Does patient have a dx of serious acute active bleeding?: Yes
Does patient have prior history of HIT?: No
04/21/24 01:06
Blood Bank Products [* Blood Bank Products] Urgent
's Orders: Jarret Nuñez, DO
Blood Bank Products: *Fresh Frozen Plasma
Quantity: 1
Transfuse Today: Yes
Reason: Bleeding
04/21/24 01:19
Type+Screen Urgent
04/21/24 01:26
Morphine Sulfate 4 mg .ROUTE .STK-MED ONE
04/21/24 01:28
Morphine Sulfate 4 mg IV NOW STA
Abnormal Lab Results
04/20/24 04/20/24
21:34 22:09
RBC 2.91 L 10^6/uL
(4.70-6.10)
Hgb 9.5 L g/dL
(13.0-18.0)
Hct 28.4 L %
(39.0-52.0)
MCV 97.6 H fL
(80.0-94.0)
MCH 32.6 H pg
(27.0-31.0)
RDW 14.8 H %
(11.5-14.5)
Abs Immat Gran (auto) 0.1 H 10^3/uL
(0-0.05)
Absolute Lymphs (auto) 1.0 L 10^3/uL
(1.2-3.4)
Absolute Monos (auto) 1.1 H 10^3/uL
(0.1-0.6)
Immature Gran % 0.8 H %
(0-0.5)
Lymphocytes % 11.7 L %
(20.5-51.1)
Monocytes % 12.5 H %
(1.7-9.3)
PT 20.0 H Sec
(11.4-14.6)
Sodium 131 L mmol/L
(135-145)
Chloride 95 L mmol/L
(98-107)
BUN 31 H mg/dl
(9-20)
Creatinine 1.4 H mg/dL
(0.7-1.3)
Glucose 124 H mg/dl
(70-99)
Total Bilirubin 1.6 H mg/dl
(0.2-1.3)
04/20/24 21:34
04/20/24 21:34
Vital Signs
Initial and Last Documented VS:
Initial Vital Signs
Temp Pulse Resp BP Pulse Ox
97.9 F 62 19 120/90 93
04/20/24 21:02 04/20/24 21:02 04/20/24 21:02 04/20/24 21:02 04/20/24 21:02
Last Documented Vital Signs
Temp Pulse Resp BP Pulse Ox
97.9 F 108 17 112/71 98
04/20/24 21:02 04/21/24 01:15 04/21/24 01:15 04/21/24 01:03 04/21/24 01:15
MDM/Problems Addressed
Differential Diagnosis Includes:
HPI and MDM Narrative:
83-year-old male presenting for evaluation of worsening left abdominal pain. Patient had recent hernia repair a few days ago. He was bridged back to Coumadin. He has noted bulging and pain to the left side of his abdomen. On exam, patient does
have bruising and tenderness to the left side of his incision. He states pain is not terrible when he is laying flat. Pain gets worse when he walks or moves. He does have a feels to be a large hematoma to his left abdomen. Given the
postoperative pain, will obtain CT
Physical exam
General: Mildly uncomfortable
HEENT: protecting airway
Neck: appears supple
CV: No evidence of cyanosis
Resp: No accessory muscle use
Abd: Non-distended. Palpable hematoma to left abdomen with postsurgical changes
Extremities: No deformities
Neuro: alert
Psych: Normal affect
Skin: Intact
Problems Addressed including Acute and Chronic Conditions affecting care:
1. Postoperative pain
Acuity: acute
Prognosis: stable
Details: Likely in setting of postoperative hematoma but will obtain CT looking for abscess versus bleed
Updates
12:50 AM vision radiology called indicating a right retroperitoneal bleed and rectus sheath bleed with active extravasation
12:56 AM Case discussed with general surgeon Dr. Hampton who deferred to interventional radiology. Dr. Hampton recommending 1 unit of fresh frozen plasma and to avoid vitamin K
1 AM interventional radiology made aware
Will reverse INR with fresh frozen plasma
Interventional radiology did rediscuss the case and indicated that the bleeding does not appear to be significantly brisk. IR suggesting evaluating overnight given how well-appearing he is
On multiple reevaluations, patient remains nontoxic-appearing
Differential Diagnosis (but not limited to): Postoperative hematoma, postoperative hemorrhage, postoperative hematoma
Testing considered: Blood cultures but he is afebrile
Drug therapy (if applicable): OTC meds, please see d/c instruction regarding Rx drugs
Amount and/or Complexity of Data Reviewed
Clinical info obtained from: Patient
External data reviewed: Recent admission for inguinal and ventral hernia repair
Labs I independently reviewed (but not limited to): Hemoglobin 9.5
Radiology: The CT scan was personally and independently reviewed. In addition, official CT report reviewed.
Pulse Ox: not hypoxic
EKG independently reviewed: N/A
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
Critical Care: The high probability of a clinically significant, sudden or life threatening deterioration of the gastrointestinal and cardiovascular system(s) required my full and direct attention, intervention and personal management. The aggregate
critical care time was 33 minutes. This time is in addition to time spent performing reported procedures but includes the following:
[x] Data Review and interpretation
[x] Patient assessment and monitoring of vital signs
[x] Documentation
[x] Medication orders and management
Risk of Complication:
Social Determinants of health: Good social support
Discussed with other providers: Interventional radiology, general surgery, hospitalist
Escalation of Care includes Admit/Obs: Given the intra-abdominal bleeding, will reverse Coumadin and admit for further evaluation
Occasional wrong word or 'sound a like' substitutions may have occurred due to the inherent limitations of voice recognition software. Read the chart carefully and recognize, using context, where substitutions have occurred.
*Critical Care Note
Total Time (30-74mins, 75-104mins- exclusive of procedures): 33 min
ED Attending Note
-
Portions of this chart may have been created with voice recognition software.� Occasional wrong word or��sound alike� substitutions may have occurred due to the inherent limitations of voice recognition software.
Discharge Plan
Departure
Patient Disposition: Admit
Date of Disposition: 04/21/24
Time of Disposition: 01:47
Admit to: IMU
Presentation/result/management discussed w/ accepting MD/DO: Hospitalist
Discharge Problem:
Post-operative hemorrhage
Prescriptions:
No Action
warfarin [Jantoven] 5 MG tablet
5 mg PO QPM
Patient Comments:
09/13/23: PER ECW-NADIRA from [facility] called to verify dose for patient as dose in comment section is 5.5mg daily. I told him patient has 1mg tabs at home and knows to break them in half however, I did tell PJ to please note in patient file that he
does not take the dose of Coumadin we direct most times. Patient doses himself a lot of the time. We have educated patient multiple times to not do this and why it is important to follow our dosing.
ferrous sulfate 325 mg (65 mg iron) tablet
325 mg PO HS
digoxin 125 mcg (0.125 mg) tablet
125 mcg PO DAILY
furosemide 40 mg tablet
40 mg PO DAILY
atorvastatin 40 mg tablet
40 mg PO QPM
folic acid 1 MG tablet
1 mg PO DAILY
sacubitril-valsartan [Entresto] 24-26 mg tablet
1 tab PO BID
carvedilol 6.25 mg Tablet
3.125 mg PO BID
diltiazem HCl 120 mg Tablet
120 mg PO QPM
coenzyme Q10 [CoQ-10] 100 mg Capsule
300 mg PO DAILY
omega [id number]-gdp-fish oil [Fish Oil] 1,000 mg (120 mg-180 mg) Capsule
2 cap PO DAILY
cholecalciferol (vitamin D3) [Vitamin D3] 50 mcg (2,000 unit) Capsule
50 mcg PO DAILY
aspirin [Aspirin Childrens] 81 mg tablet,chewable
81 mg PO Q48H
garlic 300 mg Capsule
600 mg PO QPM
levothyroxine 37.5 mcg Capsule
37.5 mcg PO DAILY
spironolactone 25 mg tablet
25 mg PO DAILY
Basis Combination
1 dose PO DAILY
Patient Comments:
250mg Crystaline nicotinamide riboside/Pterostillbene 50mg
enoxaparin [Lovenox] 60 mg/0.6 mL Syringe
60 mg SC Q12H
Referrals:
Pedro Martinez DO [Family Provider] -
Interventions
Interventions:
*Risk Screen - Suicide Last Done: 04/20/24 21:02
*General Assessment Last Done: 04/20/24 21:51
*Neglect/Abuse Screening Last Done: 04/20/24 21:02
ED- Fall Risk Assessment Last Done: 04/20/24 22:27
*ED COVID-19 Vaccine History Last Done: 04/20/24 21:51
ED-Skin Assessment Last Done: 04/20/24 22:19
Discharge Date and Time
Print Language: KAZAKH
[2024-04-20 21:51] VITALS: BMI 23.2
[2024-04-20 22:00] VITALS: BP 104/91
[2024-04-20] MEDS: MORPHINE SULFATE 4 MG IV (22:05)
[2024-04-20] MEDS: ZOFRAN 4 MG IV (22:05)
[2024-04-20] MEDS: OMNIPAQUE 50 ML PO (22:06)
[2024-04-20 22:11] LABS: ALT (SGPT) 34 U/L (0-50); AST (SGOT) 45 U/L (17-59); Albumin 4.2 g/dl (3.5-5.0); Alkaline Phosphatase 89 U/L (38-126); Blood Urea Nitrogen 31 mg/dl (9-20); Calcium 9.1 mg/dl (8.4-10.2); Carbon Dioxide 28 mmol/L (22-30); Chloride 95 mmol/L (98-107); Estimated Creatinine Clearance 38 ml/min; Glucose 124 mg/dl (70-99); Potassium 4.9 mmol/L (3.5-5.1); Sodium 131 mmol/L (135-145); Total Bilirubin 1.6 mg/dl (0.2-1.3); Total Protein 6.8 g/dl (6.3-8.2); eGFR 49.56
[2024-04-20 22:22] VITALS: BP 109/87
[2024-04-20 22:28] LABS: INR 1.65
[2024-04-20 22:32] LABS: Lactic Acid 1.4 mmol/L (0.7-2.0)
[2024-04-21] VITALS (39 sets, daily range): BP systolic 88–139; BP diastolic 51–100
[2024-04-21] MEDS: MORPHINE SULFATE 4 MG IV (01:28)
[2024-04-21] MEDS: NSS 1000 IV (03:09)
--- NOTE | 2024-04-21 03:20 | HPS.HSE ---
Family Physician
-
Family Physician: Pedro Martinez,
Chief Complaint
-
Postoperative hematoma
History of Present Illness
This is a 83-year-old with past medical history that is significant for rheumatic disease status post [facility] mechanical mitral valve replacement, status post [facility] aortic valve replacement, CAD, CHF with reduced EF, history of CVA,
hypertension hyperlipidemia, pulmonary atrial fibrillation on voice anticoagulated on Coumadin for multiple reasons presents to the emergency department postop day #3 status post inguinal and ventral hernia repairs with sudden onset abdominal
discomfort and skin discoloration.
Patient drain his hospitalization had a heparin bridge for his Coumadin. Reported that he started taking the Coumadin again about 1 year ago. He reported having a strenuous episode then he had sharp abdominal pain and then developed increasing
swelling in the external abdominal wall anteriorly as well is having lower abdominal discoloration. Denies feeling dizzy or lightheaded. He denies any palpitations. He denies any chest pain. Patient denies having any fevers or chills.
On arrival in the emergency department pressure was 108/56 with a pulse of 90, he was satting 98% on room air. Temperature was 98.4. ECG shows atrial fibrillation at rate of 107. INR was 1.6. Hemoglobin was 9.5 which is slightly down from 10 few
days ago platelet count was normal. Electrolytes and BUN/creatinine were in the normal range and unchanged compared to his baseline.
CT scan of the abdomen and pelvis revealed large right retroperitoneal/intraperitoneal hematoma with fluid hemorrhage in the face measuring approximately 8.4 x 10.8 x 11.2 cm with some possible blush of contrast on delayed imaging inferiorly
concerning for active hemorrhage. Hematoma extends along the right pelvic sidewall. There is a rectus sheath hematoma with 'fluid level measuring approximately 7.9 x 3.9 x 7.8 cm.
Case was discussed with surgery. Surgery referred patient to IR. Reviewed the imaging and suggested that the bleeding will self tamponade. Surgery says to avoid vitamin K at this time.
Medical History
Past Medical History
Past Medical History: Reports Other
Additional Past Medical History:
Arrhythmias (Permanent atrial fibrillation), Asthma, CAD (Severe CAD by cardiac cath April 2022, patient considering high risk redo CABG at [facility]), CHF (Chronic heart failure with reduced ejection fraction), CVA, HTN,
Hypercholesterolemia, Valvular Disease (Mechanical and mitral aortic valve replacement) and Other (Anemia, rheumatic fever, osteoarthritis)
Past Surgical History: Reports Cardiac ([facility] mechanical mitral valve replacement 1998 [facility], [facility] aortic valve replacement [address] [facility])
Social History
Tobacco: Non-smoker
Alcohol: Former
Drug: None
Personal:
Living: With Family
Employment: Retired
Family History
Family History: Not pertinent
Allergies / Home Medications
Allergies reflects when Allergies were last updated in [facility].
Home Medications with original date entered in [facility]
Allergy/Medication List:
Allergies
Allergy/AdvReac Type Severity Reaction Status Date / Time
meperidine [From Demerol] Allergy Anaphylaxis Verified 04/20/24 21:02
Home Medications
warfarin 5 mg tablet (Jantoven) 5 mg PO QPM Blood clot prevention/tx 08/13/21
atorvastatin 40 mg tablet 40 mg PO QPM High cholesterol 07/22/22
digoxin 125 mcg (0.125 mg) tablet 125 mcg PO DAILY Arrhythmia 07/22/22
ferrous sulfate 325 mg (65 mg iron) tablet 325 mg PO HS Supplement 07/22/22
folic acid 1 mg tablet 1 mg PO DAILY Supplement 07/22/22
furosemide 40 mg tablet 40 mg PO DAILY Fluid retention/Swelling 07/22/22
sacubitril 24 mg-valsartan 26 mg tablet (Entresto) 1 tab PO BID Heart Failure 07/22/22
carvedilol 6.25 mg tablet 3.125 mg PO BID Blood Pressure 09/13/23
coenzyme Q10 100 mg capsule (CoQ-10) 300 mg PO DAILY Supplement 09/13/23
diltiazem HCl 120 mg tablet 120 mg PO QPM Heart Disease/Condition 09/13/23
omega 7-rus-qrv-fish oil 1,000 mg (120 mg-180 mg) capsule (Fish Oil) 2 cap PO DAILY Supplement 09/13/23
aspirin 81 mg chewable tablet (Aspirin Childrens) 81 mg PO Q48H Blood Clot Prevention/Tx 11/01/23
cholecalciferol (vitamin D3) 50 mcg (2,000 unit) capsule (Vitamin D3) 50 mcg PO DAILY Supplement 11/01/23
garlic 300 mg capsule 600 mg PO QPM Supplement 11/01/23
levothyroxine 37.5 mcg capsule 37.5 mcg PO DAILY Thyroid 11/01/23
Basis Combination 1 dose PO DAILY 04/13/24
spironolactone 25 mg tablet 25 mg PO DAILY Fluid Retention/Swelling 04/13/24
enoxaparin 60 mg/0.6 mL subcutaneous syringe (Lovenox) 60 mg SC Q12H Blood Clot Prevention/Tx 04/17/24
Review of Systems
-
History Source: Patient
Constitutional: Reports No Symptoms
EENT: Reports No Symptoms
Respiratory: Reports No Symptoms
Cardiac: Reports No Symptoms
Abdomen/GI: Reports Abdominal Pain
: Reports No Symptoms
Musculoskeletal: Reports No Symptoms
Skin: Reports Rash
Neurological: Reports No Symptoms
Endocrine: Reports No Symptoms
Hematologic/Lymphatic: Reports No Symptoms
Psych: Reports No Symptoms
Physical Exam
Vital Signs
Vital Signs
Temp Pulse Resp BP Pulse Ox
98.5 F 102 18 97/68 98
04/21/24 03:01 04/21/24 03:06 04/21/24 03:06 04/21/24 03:06 04/21/24 03:04
Physical Exam
General: Well Developed, Well Nourished, Comfortable and Conversant
HEENT: NormoCephalic, Anicteric, Moist mucous membranes and Atraumatic
Respiratory: Clear
Cardiac: S1/S2 and Irregular Rhythm
Breast: Deferred by me
GI: Soft, Non Tender, Non Distended and Normal Bowel Sounds
Rectal: Deferred by Provider
Genito-urinary: Deferred by me
Musculoskeletal: No Clubbing, No Cyanosis and No Edema
Skin: Warm and Rash (ecchymoses of the bilateral lower quadrant and right flank and back. Surgical suture sites C/D/I. There is a obvious right sade umbilical hematoma measuring about 5 cm in diameter. Tender to palpation.)
Neuro: AO x 3 and Nonfocal/grossly intact
Hematologic/Lymphatic: No Lymphadenopathy
Psych: Calm
Laboratory Results
-
04/20/24 21:34
04/20/24 21:34
Laboratory Results
PT 20.0 Sec (11.4-14.6) H 04/20/24 22:09
INR 1.65 04/20/24 22:09
Lactic Acid 1.4 mmol/L (0.7-2.0) 04/20/24 22:09
Total Bilirubin 1.6 mg/dl (0.2-1.3) H 04/20/24 21:34
AST 45 U/L (17-59) 04/20/24 21:34
ALT 34 U/L (0-50) 04/20/24 21:34
Alkaline Phosphatase 89 U/L (38-126) 04/20/24 21:34
Data Reviewed
-
CT Scan: Report Reviewed by me
Medical Tests (Nuc Med, Echo, EKG etc): Image Personally Visualized and interpreted
Lab Data: Labs Reviewed by me
Old Records: Reviewed
Impression/Plan
-
IMPRESSION:
Post operative hematoma.
PLAN:
1. Post op hematoma - Patient anticoagulated for mechanical mitral and aortic valves and for permanent afib presents pod 3 s/p inguinal hernia repair with acute RP hematoma and rectus sheath hematoma. HD stable. Hgb stable. Reviewed with surgery.
No indication for acute intervention and referred to IR who also felt no indication for acute intervention with high probability of self tamponade.
- admit to telemetry
- monitor h/h q 8 hours
- type and screen, transfuse for acute blood loss or Hgb < 7
- s/p FFP x 1, no vit K given high risk of thromboembolism
- holding coumadin
- no aspirin for now
- f/u CT in 8 to 12 hours if exam stable.
- surgery consult
2. AFIB/Mechanical Valves
- continue carvedilol and diltiazem
- holding coumadin (takes 5mg daily)
- continue digoxin
3. CHF - HD stable. No volume overlaod
- hold lasix.
- hold spironolactone
- continue entresto for now with hold parameters
DVT PPX - SCDs
Code status - full code
[2024-04-21] MEDS: DILAUDID 0.5 MG IV ×3 (05:17→15:50)
[2024-04-21 05:39] LABS: Hematocrit 23.7 % (39.0-52.0); Mean Corp Hgb Conc. 33.8 g/dL (33.0-37.0); Mean Corpuscular Hgb 32.8 pg (27.0-31.0); Mean Corpuscular Volume 97.1 fL (80.0-94.0); Mean Platelet Volume 10.1 fL (7.4-10.4); Platelet Count 178 10^3/uL (130-400); Red Blood Cell Count 2.44 10^6/uL (4.70-6.10); Red Cell Dist. Width 14.6 % (11.5-14.5); White Blood Cell Count 7.8 10^3/uL (4.8-10.8)
[2024-04-21 05:51] LABS: INR 1.66; PT 20.1 Sec (11.4-14.6)
[2024-04-21 06:10] LABS: Blood Urea Nitrogen 31 mg/dl (9-20); Calcium 8.3 mg/dl (8.4-10.2); Carbon Dioxide 29 mmol/L (22-30); Chloride 99 mmol/L (98-107); Estimated Creatinine Clearance 44 ml/min; Glucose 98 mg/dl (70-99); Potassium 4.8 mmol/L (3.5-5.1); Sodium 133 mmol/L (135-145); eGFR 59.63
[2024-04-21] MEDS: COREG 3.125 MG PO (07:57)
[2024-04-21] MEDS: FOLVITE 1 MG PO (07:57)
[2024-04-21] MEDS: LANOXIN 125 MCG PO (07:58)
[2024-04-21] MEDS: SYNTHROID PO (08:25)
[2024-04-21] MEDS: AQUAMEPHYTON 50.25 MG IV (08:47)
--- NOTE | 2024-04-21 11:55 | W.PN.UPDATE ---
Update Note
Progress Note Update
- R external iliac angio performed showed subtle focus of contrast extrav arising from the circumflex iliac artery. R IEA artery unremarkable
- Subsequent subselective arteriogram of the circumflex iliac confirmed the above findings, with bleed arising from a small proximal branch. Distal to proximal coil embolization performed using 2/3 mm coils
- We also performed distal left external iliac angio (given left rectus sheath hematoma) however these images very limited. Distal left external iliac has a 180 degree loop and patient's bladder and lower abdomen full of contrast. Patient vitals
stable so elected to stop here.
- If left rectus sheath hematoma needs to be addressed, will likely require ipsilateral access.
- 5F Mynx closure device used. R leg flat for 3 hrs.
--- NOTE | 2024-04-21 12:44 | PTCARENOTE ---
Picked up patient in IR. VSS. C/o pain 09/14, dilaudid just given prior to my arrival. Patient laying flat in bed, instructed on restrictions. Patient AAOx3, cooperative. RLE bandaid CDI. Pulses intact. RBCs infusing. Will closely monitor.
--- NOTE | 2024-04-21 14:35 | W.PN.UPDATE ---
Update Note
Progress Note Update
Spoke to surgery, did not believe bleed would tamponade on its own. Given additional 2.5 mg IV vitamin K, and 1 unit PRBC. Trending CBC. Went for IR embolization today. Surgery on board. Hold antihypertensives, can trial IV Lopressor for now
for atrial fibrillation.
[2024-04-21] MEDS: ROXICODONE 5 MG PO (14:56)
[2024-04-21 15:23] LABS: Hemoglobin 8.3 g/dL (13.0-18.0); Mean Corp Hgb Conc. 33.2 g/dL (33.0-37.0); Mean Corpuscular Hgb 31.9 pg (27.0-31.0); Mean Corpuscular Volume 96.2 fL (80.0-94.0); Mean Platelet Volume 10.3 fL (7.4-10.4); Platelet Count 187 10^3/uL (130-400); Red Cell Dist. Width 15.8 % (11.5-14.5); White Blood Cell Count 8.7 10^3/uL (4.8-10.8)
--- NOTE | 2024-04-21 15:24 | CON.GS ---
Consultation
-
Date/Time Consultation Requested: 04/20/2024 8 p.m.
Date/Time Consultation Performed: 04/21/2024 8 AM
Requesting Provider: Emergency department
Performing Provider: Dr. Hampton
Reason for Consultation: Abdominal pain
Medical History
-
Chief Complaint: Abdominal pain
History of Present Illness:
This is an 83-year-old male with significant cardiac history including both a mitral and aortic mechanical valve on Coumadin who is postop day 4 from a robotic recurrent right inguinal as well as umbilical and ventral hernia repairs who was
initially admitted postoperatively for observation and transition back to therapeutic anticoagulation. He was actually discharged yesterday but developed worsening abdominal pain at home which point he called me. After visually talking with the
patient a noted an asymmetry in the abdominal wall with the left side being slightly larger and more ecchymotic. The patient describes this is enlarging so he was encouraged to come to the ED for evaluation. Here he underwent a CTA which
demonstrated a blush in the left rectus area with a layering 8 cm hematoma as well as an additional 11 cm hematoma in the right pelvis. Here his blood pressure was soft, he was tachycardic and his hemoglobin down from his baseline. He was given 1
unit of FFP and vitamin K/Kcentra was held at my request as I did not want to overly reverse his anticoagulation given his mechanical valves. I did reach out to IR yesterday for possible embolization. This morning he states that the pain is
actually worse now on the left side and it is expanding even further.
Past Medical History
Past Medical History: Other (Atrial fibrillation, asthma, CAD, CABG, CHF, CVA, mechanical mitral and aortic valves)
Past Surgical History: Other (Prior open right inguinal hernia repair)
Social History
Tobacco: Non-Smoker
Alcohol: Former
Drug: None
Personal:
Living: With Family
Family History
Family History: Reviewed & Not Pertinent
Allergies / Home Medications
Allergy/AdvReac Type Severity Reaction Status Date / Time
meperidine [From Demerol] Allergy Anaphylaxis Verified 04/20/24 21:02
�Medication �Instructions �Recorded �Confirmed �Type
warfarin 5 mg tablet (Jantoven) 5 mg PO QPM Blood clot 08/13/21 04/17/24 History
prevention/tx
atorvastatin 40 mg tablet 40 mg PO QPM High cholesterol 07/22/22 04/17/24 History
digoxin 125 mcg (0.125 mg) tablet 125 mcg PO DAILY Arrhythmia 07/22/22 04/17/24 History
ferrous sulfate 325 mg (65 mg 325 mg PO HS Supplement 07/22/22 04/17/24 History
iron) tablet
folic acid 1 mg tablet 1 mg PO DAILY Supplement 07/22/22 04/17/24 History
furosemide 40 mg tablet 40 mg PO DAILY Fluid 07/22/22 04/17/24 History
retention/Swelling
sacubitril 24 mg-valsartan 26 mg 1 tab PO BID Heart Failure 07/22/22 04/17/24 History
tablet (Entresto)
carvedilol 6.25 mg tablet 3.125 mg PO BID Blood Pressure 09/13/23 04/17/24 History
coenzyme Q10 100 mg capsule 300 mg PO DAILY Supplement 09/13/23 04/17/24 History
(CoQ-10)
diltiazem HCl 120 mg tablet 120 mg PO QPM Heart 09/13/23 04/17/24 History
Disease/Condition
omega 5-epb-ezb-fish oil 1,000 mg 2 cap PO DAILY Supplement 09/13/23 04/17/24 History
(120 mg-180 mg) capsule (Fish Oil)
aspirin 81 mg chewable tablet 81 mg PO Q48H Blood Clot 11/01/23 04/17/24 History
(Aspirin Childrens) Prevention/Tx
cholecalciferol (vitamin D3) 50 50 mcg PO DAILY Supplement 11/01/23 04/17/24 History
mcg (2,000 unit) capsule (Vitamin
D3)
garlic 300 mg capsule 600 mg PO QPM Supplement 11/01/23 04/17/24 History
levothyroxine 37.5 mcg capsule 37.5 mcg PO DAILY Thyroid 11/01/23 04/17/24 History
Basis Combination 1 dose PO DAILY 04/13/24 04/17/24 History
spironolactone 25 mg tablet 25 mg PO DAILY Fluid 04/13/24 04/17/24 History
Retention/Swelling
enoxaparin 60 mg/0.6 mL 60 mg SC Q12H Blood Clot 04/17/24 04/17/24 History
subcutaneous syringe (Lovenox) Prevention/Tx
Review of Systems
-
All other systems: Negative unless noted
A 10 point review of systems was completed, and was negative except as per HPI.
Physical Exam
Vital Signs
Temp Pulse Resp BP Pulse Ox
98.4 F 92 14 118/59 92
04/21/24 11:55 04/21/24 13:30 04/21/24 13:30 04/21/24 12:38 04/21/24 15:11
04/20/24 04/21/24 04/22/24
06:59 06:59 06:59
Actual Weight 69.1 kg
Body Mass Index (BMI) 23.2
Lab Results
04/21/24 05:26
WBC 8.7 10^3/uL (4.8-10.8) 04/21/24 15:06
Hgb 8.3 g/dL (13.0-18.0) L 04/21/24 15:06
Hct 25.0 % (39.0-52.0) L 04/21/24 15:06
Plt Count 187 10^3/uL (130-400) 04/21/24 15:06
Abs Immat Gran (auto) 0.1 10^3/uL (0-0.05) H 04/20/24 21:34
Neutrophils % 73.5 % (42.2-75.2) 04/20/24 21:34
Physical Exam
General: Well Developed
HEENT: Normocephalic
Respiratory: Non Labored Respirations
GI: Tender (Tender and ecchymotic particularly along the left abdomen. No pain on the right side) and Incisions (Ecchymotic but intact)
Data Reviewed
-
CT Scan: Image Personally Visualized and interpreted, Report Reviewed by me, Discussed with Physician and Discussed with Patient
Labs: Labs Reviewed by me, Discussed with Physician and Discussed with Family
Total Time Spent with Patient (in minutes): 50
Assessment / Plan
-
This is an 83-year-old male with a significant cardiac history and mechanical aortic and mitral valves on Coumadin who is now postoperative day 4 from a robotic recurrent right inguinal hernia repair with mesh as well as primary umbilical and
epigastric hernia repairs. He was discharged on 04/20/2024 but subsequently developed worsening swelling on his left side at home and represented found to have hematoma in his right pelvis as well as in the right rectus sheath with concern for
ongoing bleeding.
1 unit of FFP given, will give 2.5 mg of IV vitamin K now as well as an additional unit of packed red blood cells.
Large-bore IV access.
N.p.o., gentle IV fluids given his cardiac history.
Continue to trend CBC
IR consult for urgent embolization.
Recommend highest level of care given his complex medical history and somewhat tenuous clinical situation now.
General surgery will continue to follow
[2024-04-21] MEDS: LIPITOR 40 MG PO (17:26)
[2024-04-21] MEDS: LOPRESSOR 5 MG IV ×2 (17:26→22:33)
[2024-04-21 21:05] LABS: Hematocrit 24.2 % (39.0-52.0); Hemoglobin 8.1 g/dL (13.0-18.0); Mean Corp Hgb Conc. 33.5 g/dL (33.0-37.0); Mean Corpuscular Volume 95.7 fL (80.0-94.0); Mean Platelet Volume 9.9 fL (7.4-10.4); Platelet Count 189 10^3/uL (130-400); Red Blood Cell Count 2.53 10^6/uL (4.70-6.10); Red Cell Dist. Width 15.9 % (11.5-14.5)
[2024-04-21] MEDS: ROBITUSSIN 100 MG PO (22:33)
[2024-04-21] MEDS: FEOSOL 325 MG PO (22:33)
--- NOTE | 2024-04-21 22:39 | PTCARENOTE ---
Pt c/o constant cough. Requesting cough medicine. Kristen JOHNSON on floor and made aware. Order entered for Robitussin. Robitussin given and pt currently resting comfortably. Call helton remains within each. Will continue.
[2024-04-22] VITALS (32 sets, daily range): BP systolic 105–135; BP diastolic 42–107; BMI 24.8
[2024-04-22] MEDS: FLUSH (NSS) 2 FLUSH IV (03:19)
[2024-04-22] MEDS: DILAUDID 0.25 MG IV ×4 (03:19→22:07)
[2024-04-22 03:48] LABS: Hematocrit 23.3 % (39.0-52.0); Hemoglobin 7.7 g/dL (13.0-18.0); Mean Corpuscular Hgb 31.6 pg (27.0-31.0); Mean Corpuscular Volume 95.5 fL (80.0-94.0); Mean Platelet Volume 10.5 fL (7.4-10.4); Platelet Count 199 10^3/uL (130-400); Red Blood Cell Count 2.44 10^6/uL (4.70-6.10); Red Cell Dist. Width 15.9 % (11.5-14.5); White Blood Cell Count 11.7 10^3/uL (4.8-10.8)
[2024-04-22 04:17] LABS: ALT (SGPT) 26 U/L (0-50); AST (SGOT) 45 U/L (17-59); Albumin 3.3 g/dl (3.5-5.0); Alkaline Phosphatase 70 U/L (38-126); Blood Urea Nitrogen 42 mg/dl (9-20); Calcium 8.3 mg/dl (8.4-10.2); Carbon Dioxide 27 mmol/L (22-30); Chloride 100 mmol/L (98-107); Estimated Creatinine Clearance 35 ml/min; Glucose 132 mg/dl (70-99); Potassium 5.4 mmol/L (3.5-5.1); Sodium 132 mmol/L (135-145); Total Bilirubin 1.6 mg/dl (0.2-1.3); Total Protein 5.7 g/dl (6.3-8.2); eGFR 45.62
[2024-04-22] MEDS: SYNTHROID 37.5 MCG PO (05:36)
[2024-04-22] MEDS: LOPRESSOR 5 MG IV ×4 (05:37→23:21)
[2024-04-22] MEDS: FOLVITE 1 MG PO (07:40)
[2024-04-22] MEDS: LANOXIN 125 MCG PO (07:40)
[2024-04-22 10:03] LABS: Hematocrit 19.1 % (39.0-52.0); Hemoglobin 6.8 g/dL (13.0-18.0); Mean Corp Hgb Conc. 35.6 g/dL (33.0-37.0); Mean Corpuscular Hgb 32.5 pg (27.0-31.0); Mean Corpuscular Volume 91.4 fL (80.0-94.0); Mean Platelet Volume 10.3 fL (7.4-10.4); Platelet Count 173 10^3/uL (130-400); Red Blood Cell Count 2.09 10^6/uL (4.70-6.10); Red Cell Dist. Width 15.8 % (11.5-14.5)
--- NOTE | 2024-04-22 12:12 | W.PN.GS2 ---
Addendum entered and electronically signed by Jamie Hampton MD 04/22/24 13:32:
I saw and examined the patient independently.
The Wholesale [employer] Broker's note was reviewed and I agree with the note, assessment and plan except where noted below.
Comment: Patient states that he feels much improved compared to yesterday. He is urinating without difficulty but low volume.
Transfuse 2 units packed red blood cells. Recheck CBC posttransfusion. Recheck coags
Hematology consult
1 g TXA
Serum creatinine climbing concerning for obstructive uropathy secondary to pelvic hematoma. Will place a Ceballos.
Continue holding therapeutic anticoagulation. SCDs
Original Note:
Today's Communication / Plan
-
2 units PRBCs
1 g TXA
hematology c/s
Assessment / Plan
-
83-year-old male with a significant cardiac history and mechanical aortic and mitral valves on Coumadin who is now postoperative day 4 from a robotic recurrent right inguinal hernia repair with mesh as well as primary umbilical and epigastric hernia
repairs. He was discharged on 04/20/2024 but subsequently developed worsening swelling on his left side at home and represented found to have hematoma in his right pelvis as well as in the right rectus sheath with concern for ongoing bleeding.
Hgb 6.8 from 7.7, WBC 11.0 from 11.7
Vitals normal
04/21- angiogram/coil left circumflex iliac, 1 unit FFP, 1 unit PRBC
04/22- 2 units PRBCs, 1 g TXA
-Transfuse 2 units PRBCs now
-1g TXA now
-Hematology consult
-H&H q 8h
-INR/PT pending
-Place ceballos given hematoma near bladder
-Continue on clears for now
-Continue to hold coumadin
-General surgery will continue to follow
Subjective Data
-
Date of Service: April 22, 2024
Patient states he has 'low energy'. He states he is urinating without difficulty. He denies nausea or vomiting. He is tolerating clears.
Objective Data
-
Intake and Output
04/21/24 04/22/24 04/23/24
06:59 06:59 06:59
Intake Total 220 / 220 200 / 200 0 / 0
Output Total 100 / 100
Balance 220 / 220 100 / 100 0 / 0
Intake:
Oral fluids 200 / 200
Blood Product Amount Infused ( 0 / 0
mL)
Ffp24 Divided Unit Part 2 Unit
[id number]
Packed Rbc Leukoreduced Unit 0 / 0
[id number]
Output:
Urine, Voided 100 / 100
Other:
Number of approximated MODERATE 1
amounts of urine
How many times incontinent 1
SATURATED amount urine
Vital Signs
Temp Pulse Resp BP Pulse Ox
98.6 F 79 17 119/42 91
04/22/24 11:17 04/22/24 11:17 04/22/24 11:17 04/22/24 11:17 04/22/24 08:00
Lab Results
04/22/24 09:30
04/22/24 03:01
Calcium 8.3 mg/dl (8.4-10.2) L 04/22/24 03:01
Total Bilirubin 1.6 mg/dl (0.2-1.3) H 04/22/24 03:01
AST 45 U/L (17-59) 04/22/24 03:01
ALT 26 U/L (0-50) 04/22/24 03:01
Alkaline Phosphatase 70 U/L (38-126) 04/22/24 03:01
Total Protein 5.7 g/dl (6.3-8.2) L 04/22/24 03:01
Albumin 3.3 g/dl (3.5-5.0) L 04/22/24 03:01
Physical Exam
-
NAD AAOx3
ABD: Soft, nondistended, localized soft tissue swelling and ecchymosis at surgical sites
Incisions with surgical glue dressing.
Right inguinal examination soft, no hematoma, no seroma, light ecchymosis around the scrotal region
[2024-04-22] MEDS: ROBITUSSIN 100 MG PO ×2 (14:02→23:23)
--- NOTE | 2024-04-22 14:59 | W.PN.HOSP.TC ---
Today's Communication/Plan
-
Transfused 2 units
TXA as per surgery
Monitor CBC every 6 hours
Renal ultrasound, Hand placed
Surgery consulted hematology
If rising creatinine, may preclude further additional contrast use
Assessment / Plan
Assessment / Plan
Physical Exam
General: Well Developed, Well Nourished, Comfortable and Conversant
HEENT: NormoCephalic, Anicteric, Moist mucous membranes and Atraumatic
Respiratory: Clear
Cardiac: S1/S2 and Irregular Rhythm
Breast: Deferred by me
GI: Soft, Non Tender, Non Distended and Normal Bowel Sounds
Rectal: Deferred by Provider
Genito-urinary: Deferred by me
Musculoskeletal: No Clubbing, No Cyanosis and No Edema
Skin: Warm and Rash (ecchymoses of the bilateral lower quadrant and right flank and back. Surgical suture sites C/D/I. There is a obvious right sade umbilical hematoma measuring about 5 cm in diameter. Tender to palpation.) Improved from yesterday
Neuro: AO x 3 and Nonfocal/grossly intact
Hematologic/Lymphatic: No Lymphadenopathy
Psych: Calm
#Acute on chronic blood Loss Anemia
#Post-op Hematoma
-Postoperative day 4 from a robotic recurrent right inguinal hernia repair with mesh as well as primary umbilical and epigastric hernia repairs
-Status post vitamin K, FFP, 1 unit PRBC on 04/21
� Underwent angiogram/coil left circumflex iliac on 04/21
� 04/22, continued blood loss, transfused 2 units PRBC, 1 g TXA as per surgery
� Monitor CBC every 6 hours
� Surgery consulted hematology
� Follow-up coags
� Hold anticoagulation, aspirin for now
� Rising creatinine precludes repeat CT imaging
�Hold antihypertensives, can switch Coreg to metoprolol
#MEDARDO
� Suspect secondary to acute blood loss, hypovolemia
� Trend creatinine
� Follow-up renal ultrasound due to surgery suspicion of obstructive uropathy in setting of hematoma
� Hand placed
#Hyponatremia
� Suspect secondary to hypovolemia
� Monitor with resuscitation
#Hyperkalemia
- Suspect secondary to MEDARDO versus
� Monitor and treat most
# Permanent AFIB/Mechanical Valves
- Hold carvedilol and diltiazem
- holding coumadin (takes 5mg daily)
- continue digoxin
-Can switch to IV lopressor for now, can stop if hypotensive
�Educated on risk of TXA, hypercoagulants with valves in response to combating bleed
# #Chronic HFrEF
� Hold diuretics due to acute blood loss anemia
- hold lasix.
- hold spironolactone
-Hold entresto
#hx of CVA: hold ASA; can cont statin
#CAD: Cont hold asa; cont bb; statin for now
DVT PPX - SCDs
Code status - full code
Total time spent on today's encounter was 55 minutes which included time spent in counseling the patient/family regarding diagnosis and treatment plan as listed above, goals of care, and symptom management. Case was discussed with nursing staff,
specialists, and care coordinators/case management. All labs and imaging personally reviewed by me. Remainder the time spent in detailed review of previous records, lab data, imaging, and other medical provider documentation.
Anticipated Discharge: > 48 hours
Subjective/Interval History
-
Date of Service: April 22, 2024
hgb dropping; tx 2 units;
Objective Data
-
Labs:
Laboratory Results
04/22/24 04/22/24 04/22/24
03:01 09:30 10:32
WBC 11.7 H 11.0 H
Hgb 7.7 L 6.8 L*
Hct 23.3 L 19.1 L*
Plt Count 199 173
PT Pending
INR Pending
APTT Pending
Sodium 132 L
Potassium 5.4 H
Chloride 100
Carbon Dioxide 27
BUN 42 H
Creatinine 1.5 H
Glucose 132 H
Calcium 8.3 L
Total Bilirubin 1.6 H
AST 45
ALT 26
Alkaline Phosphatase 70
04/22/24 04/22/24
12:30 20:30
WBC
Hgb Pending Pending
Hct Pending Pending
Plt Count
PT
INR
APTT
Sodium
Potassium
Chloride
Carbon Dioxide
BUN
Creatinine
Glucose
Calcium
Total Bilirubin
AST
ALT
Alkaline Phosphatase
Vital Signs:
Vital Signs
Temp Pulse Resp BP Pulse Ox
98.7 F 71 17 113/50 96
04/22/24 13:54 04/22/24 13:54 04/22/24 13:54 04/22/24 13:54 04/22/24 14:44
I&O
04/21/24 04/22/24 04/23/24
06:59 06:59 06:59
Intake Total 220 / 220 200 / 200 500 / 500
Output Total 100 / 100 250 / 250
Balance 220 / 220 100 / 100 250 / 250
Review of Systems
-
History Source: Patient
All other systems: Not reviewed unless documented
Physical Exam
-
General: Well Developed, Well Nourished and No Apparent Distress
HEENT: Normocephalic, Atraumatic and Moist Mucous Membranes
Respiratory: Clear to Auscultation; Negative Wheezes, Rales or Rhonchi
Cardiac: S1/S2, Irregular Rhythm and Murmur (2/6 systolic m, click)
GI: Soft, Nontender and Nondistended
Musculoskeletal: No Clubbing, No Cyanosis and No Edema
Neuro: Awake, Alert and Oriented
Data Reviewed
-
CT Scan: Report Reviewed by me
Ultrasound: Report Reviewed by me
Labs: Labs Reviewed by me
[2024-04-22] MEDS: TRANEXAMIC ACID 110 MG IV (15:52)
--- NOTE | 2024-04-22 17:05 | PTCARENOTE ---
Assumed care of Pt at shift change. Pt resting comfortably in bed. Ceballos ordered by surgeon - when discussed with Pt he adamantly refused. Dr. Mcadams s/w Pt and he agreed. Went to place ceballos and found family had arrived and Pt again refused.
Notified surgeon and was instructed to bladder scan and place Ceballos if he is retaining. B-scan perform post void of 150ml's - 0 ml's. Will continue to monitor and assess.
[2024-04-22 18:06] LABS: Hematocrit 25.9 % (39.0-52.0); Hemoglobin 8.7 g/dL (13.0-18.0)
[2024-04-22 18:15] LABS: INR 1.27; PT 16.1 Sec (11.4-14.6)
[2024-04-22 18:16] LABS: APTT 34.4 Sec (23.4-35.0)
[2024-04-22 18:30] LABS: Blood Urea Nitrogen 39 mg/dl (9-20); Calcium 8.3 mg/dl (8.4-10.2); Carbon Dioxide 25 mmol/L (22-30); Chloride 95 mmol/L (98-107); Estimated Creatinine Clearance 41 ml/min; Glucose 148 mg/dl (70-99); Sodium 129 mmol/L (135-145); eGFR 54.17
[2024-04-22] MEDS: LIPITOR 40 MG PO (18:43)
[2024-04-22] MEDS: FEOSOL 325 MG PO (23:23)
[2024-04-22 23:43] LABS: Hematocrit 21.7 % (39.0-52.0); Hemoglobin 7.8 g/dL (13.0-18.0)
[2024-04-23] VITALS (31 sets, daily range): BP systolic 97–152; BP diastolic 46–100; BMI 24.3
[2024-04-23 04:40] LABS: Hematocrit 21.7 % (39.0-52.0); Hemoglobin 7.6 g/dL (13.0-18.0)
[2024-04-23 04:41] LABS: Hematocrit 21.6 % (39.0-52.0); Hemoglobin 7.5 g/dL (13.0-18.0); Mean Corp Hgb Conc. 34.7 g/dL (33.0-37.0); Mean Corpuscular Hgb 31.6 pg (27.0-31.0); Mean Corpuscular Volume 91.1 fL (80.0-94.0); Platelet Count 141 10^3/uL (130-400); Red Blood Cell Count 2.37 10^6/uL (4.70-6.10); Red Cell Dist. Width 16.6 % (11.5-14.5); White Blood Cell Count 9.5 10^3/uL (4.8-10.8)
[2024-04-23 05:05] LABS: ALT (SGPT) 22 U/L (0-50); AST (SGOT) 34 U/L (17-59); Albumin 3.1 g/dl (3.5-5.0); Alkaline Phosphatase 64 U/L (38-126); Blood Urea Nitrogen 32 mg/dl (9-20); Carbon Dioxide 27 mmol/L (22-30); Chloride 98 mmol/L (98-107); Estimated Creatinine Clearance 48 ml/min; Glucose 103 mg/dl (70-99); Potassium 4.7 mmol/L (3.5-5.1); Sodium 129 mmol/L (135-145); Total Bilirubin 1.8 mg/dl (0.2-1.3); Total Protein 5.5 g/dl (6.3-8.2); eGFR > 60.00
[2024-04-23] MEDS: LOPRESSOR 5 MG IV ×3 (05:27→19:27)
[2024-04-23] MEDS: FLUSH (NSS) 2 FLUSH IV (05:27)
[2024-04-23] MEDS: SYNTHROID 37.5 MCG PO (05:27)
--- NOTE | 2024-04-23 05:54 | CON.ONC ---
Impression
Impression
Postop hematoma likely secondary to combination of anticoagulation and surgical vascular injury
Blood loss anemia
Permanent atrial fibrillation/mechanical valves x 2 on chronic warfarin
Chronic HFrEF
Hx CVA
Plan
Plan
For now, hold anticoagulation to ensure stabilization of bleeding. Suggest cardiology consultation as all of the indications for anticoagulation are cardiac in nature. Suspect we should reintroduce anticoagulation slowly possibly with heparin no
bolus starting tomorrow then transition to Lovenox and ultimately back to warfarin. Would suggest getting cardiology involved as they will be the ones overseeing the anticoagulation and I want their input. This consultation can occur tomorrow
(Wednesday) routinely. Obviously, with permanent atrial fibrillation, CAD, HFrEF, and mechanical cardiac valves x 2, patient is extremely high risk for stroke the longer he is off therapeutic anticoagulation but with significant postoperative bleeding
requiring hospitalization, continue to hold for the next 24 hours to ensure stabilization. Aspirin is also on hold.
At this point, I am not terribly suspicious of some other hematologic disorder as this patient is not prone to bleeding and clearly suspect bleeding with a combination of anticoagulation and vascular injury that resulted from surgery. He seems to
be doing much better following embolization procedure. Maintain Hgb >7 with transfusions as needed. Hold off on any additional FFP with INR that is now subtherapeutic and <1.5.
Patient History
History of Present Illness
CC: Postoperative hematoma
HPI: 83-year-old on chronic warfarin for permanent a fib and mechanical mitral & aortic valve replacements presents to the emergency department postop day #3 status post inguinal and ventral hernia repairs 04/18 with sudden onset abdominal discomfort
and skin discoloration. During his prior surgical hospitalization had a heparin bridge for his anticoagulation. Resumed warfarin 2 days ago. Shortly thereafter resuming it, he developed increasing pain and swelling in his abdominal wall with
associated discoloration. Pain was 8/10.
On arrival in the emergency department INR was 1.6. Hemoglobin was 9.5 close to baseline 10.8 but dropped to 6.8, S/P 3 u PRBC. He also received 1 u FFP. F/U INR 1.27. PTT 34. PLT = 199.
CT scan of the abdomen and pelvis revealed large right retroperitoneal/intraperitoneal hematoma with fluid hemorrhage in the face measuring approximately 8.4 x 10.8 x 11.2 cm. There was also a rectus sheath hematoma with measuring 7.9 x 3.9 x 7.8 cm.
Patient underwent vascular angiogram which revealed site of bleeding. This area was treated with coil embolization of the vessel. This morning, patient feels much improved and pain is significantly better. He is also saying the area is softer.
Past-Medical/Surgical History
PMH: Permanent atrial fibrillation, Asthma, CAD (Severe CAD by cardiac cath April 2022, patient considering high risk redo CABG at [facility]), CHF (Chronic heart failure with reduced ejection fraction), CVA, HTN, Hypercholesterolemia,
Valvular Disease (Mechanical and mitral aortic valve replacement) and Other (Anemia, rheumatic fever, osteoarthritis)
Past Surgical History: Reports Cardiac ([facility] mechanical mitral valve replacement 1998 [facility], [facility] aortic valve replacement 2012 at [facility])
Social History
Tobacco: Non-smoker
Alcohol: Former
Drug: None
Personal:
Living: With Family
Employment: Retired
Family History
Family History: Not pertinent
Patient Medication
�Medication �Instructions �Recorded �Confirmed �Last Taken �Type
warfarin 5 mg tablet (Jantoven) 5 mg PO QPM Blood clot 08/13/21 04/17/24 04/13/24 History
prevention/tx
atorvastatin 40 mg tablet 40 mg PO QPM High cholesterol 07/22/22 04/17/24 04/16/24 History
digoxin 125 mcg (0.125 mg) tablet 125 mcg PO DAILY Arrhythmia 07/22/22 04/17/24 04/16/24 History
ferrous sulfate 325 mg (65 mg 325 mg PO HS Supplement 07/22/22 04/17/24 04/16/24 History
iron) tablet
folic acid 1 mg tablet 1 mg PO DAILY Supplement 07/22/22 04/17/2425 History
furosemide 40 mg tablet 40 mg PO DAILY Fluid 07/22/22 04/17/24 04/16/24 History
retention/Swelling
sacubitril 24 mg-valsartan 26 mg 1 tab PO BID Heart Failure 07/22/22 04/17/24 04/16/24 History
tablet (Entresto)
carvedilol 6.25 mg tablet 3.125 mg PO BID Blood Pressure 09/13/23 04/17/24 04/16/24 History
coenzyme Q10 100 mg capsule 300 mg PO DAILY Supplement 09/13/23 04/17/24 04/16/24 History
(CoQ-10)
diltiazem HCl 120 mg tablet 120 mg PO QPM Heart 09/13/23 04/17/24 04/16/24 History
Disease/Condition
omega 8-akc-gbr-fish oil 1,000 mg 2 cap PO DAILY Supplement 09/13/23 04/17/24 04/16/24 History
(120 mg-180 mg) capsule (Fish Oil)
aspirin 81 mg chewable tablet 81 mg PO Q48H Blood Clot 11/01/23 04/17/24 04/16/24 History
(Aspirin Childrens) Prevention/Tx
cholecalciferol (vitamin D3) 50 50 mcg PO DAILY Supplement 11/01/23 04/17/24 04/16/24 History
mcg (2,000 unit) capsule (Vitamin
D3)
garlic 300 mg capsule 600 mg PO QPM Supplement 11/01/23 04/17/24 04/16/24 History
levothyroxine 37.5 mcg capsule 37.5 mcg PO DAILY Thyroid 11/01/23 04/17/24 04/16/24 History
Basis Combination 1 dose PO DAILY 04/13/24 04/17/24 04/16/24 History
spironolactone 25 mg tablet 25 mg PO DAILY Fluid 04/13/24 04/17/24 04/16/24 History
Retention/Swelling
enoxaparin 60 mg/0.6 mL 60 mg SC Q12H Blood Clot 04/17/24 04/17/24 04/16/24 08:00 History
subcutaneous syringe (Lovenox) Prevention/Tx
Active Medications
Generic Name Dose Route Start Last Admin
Trade Name Freq PRN Reason Stop Dose Admin
Acetaminophen 650 mg 04/21/24 04:59
Acetaminophen 325 Mg Tablet PO 05/19/24 04:58
Q4HPRN PRN
mild pain/COKER/temp> 100.4F
Atorvastatin Calcium 40 mg 04/21/24 18:00 04/22/24 18:43
Atorvastatin (Lipitor) 40 Mg Tablet PO 05/19/24 17:59 40 mg
QPM PRICE Administration
Digoxin 125 mcg 04/21/24 08:00 04/22/24 07:40
Digoxin 125 Mcg Tablet PO 05/19/24 07:59 125 mcg
DAILY PRICE Administration
Ferrous Sulfate 325 mg 04/21/24 22:00 04/22/24 23:23
Ferrous Sulfate 325 Mg Tablet PO 05/19/24 21:59 325 mg
HS PRICE Administration
Folic Acid 1 mg 04/21/24 08:00 04/22/24 07:40
Folic Acid 1 Mg Tablet PO 05/19/24 07:59 1 mg
DAILY PRICE Administration
Guaifenesin 100 mg 04/21/24 22:25 04/22/24 23:23
Guaifenesin Oral Solution (200 Mg/10 Ml) Cup PO 05/19/24 22:24 100 mg
Q4HPRN PRN Administration
cough
Hydromorphone HCl 0.25 mg 04/21/24 15:34 04/22/24 22:07
Hydromorphone 0.25 Mg/0.5 Ml Syringe IV 05/05/24 15:33 0.25 mg
Q2HPRN PRN Administration
moderate pain
Hydromorphone HCl 0.5 mg 04/21/24 15:34 04/21/24 15:50
Hydromorphone 0.5 Mg/0.5 Ml Syringe IV 05/05/24 15:33 0.5 mg
Q2HPRN PRN Administration
severe pain
Levothyroxine Sodium 37.5 mcg 04/21/24 06:00 04/23/24 05:27
Levothyroxine 75 Mcg Tablet PO 05/19/24 05:59 37.5 mcg
DAILY @ 0600 PRICE Administration
Metoprolol Tartrate 5 mg 04/21/24 18:00 04/23/24 05:27
Metoprolol 5 Mg/5 Ml Vial IV 05/19/24 17:59 5 mg
Q6 PRICE Administration
Ondansetron HCl 4 mg 04/21/24 04:59
Ondansetron 4 Mg/2 Ml Vial IV 05/19/24 04:58
Q6HPRN PRN
nausea and vomiting
Polyethylene Glycol 17 grams 04/21/24 04:59
Polyethylene Glycol Powder 17 Grams Packet PO 05/19/24 04:58
DAILYPRN PRN
constipation
Sodium Chloride 0 flush 04/21/24 06:00 04/23/24 05:27
Sodium Chloride 0.9% (Flush) Syringe IV 05/19/24 05:59 2 flush
PER PROTOCOL PRICE Administration
Physical Exam
-
General: Well Developed, Well Nourished and No Apparent Distress
HEENT: Other (Hard of hearing without hearing aids)
Cardiology: S1, S2 and Irregular Rate/Rhythm
Pulmonary: Clear
GI: Soft and Other (Ecchymoses on abdominal wall)
Extremities: No C/C/E
Neurology: Non Focal
Labs
Lab Results
WBC 9.5 10^3/uL (4.8-10.8) 04/23/24 04:13
RBC 2.37 10^6/uL (4.70-6.10) L 04/23/24 04:13
Hgb 7.5 g/dL (13.0-18.0) L 04/23/24 04:13
Hgb 7.6 g/dL (13.0-18.0) L 04/23/24 04:13
Hct 21.6 % (39.0-52.0) L 04/23/24 04:13
Hct 21.7 % (39.0-52.0) L 04/23/24 04:13
MCV 91.1 fL (80.0-94.0) 04/23/24 04:13
MCH 31.6 pg (27.0-31.0) H 04/23/24 04:13
MCHC 34.7 g/dL (33.0-37.0) 04/23/24 04:13
RDW 16.6 % (11.5-14.5) H 04/23/24 04:13
Plt Count 141 10^3/uL (130-400) 04/23/24 04:13
MPV 10.0 fL (7.4-10.4) 04/23/24 04:13
Abs Immat Gran (auto) 0.1 10^3/uL (0-0.05) H 04/20/24 21:34
Absolute Neuts (auto) 6.5 10^3/uL (1.4-6.5) 04/20/24 21:34
Absolute Lymphs (auto) 1.0 10^3/uL (1.2-3.4) L 04/20/24 21:34
Absolute Monos (auto) 1.1 10^3/uL (0.1-0.6) H 04/20/24 21:34
Absolute Eos (auto) 0.1 10^3/uL (0-0.7) 04/20/24 21:34
Absolute Basos (auto) 0.0 10^3/uL (0-0.2) 04/20/24 21:34
Immature Gran % 0.8 % (0-0.5) H 04/20/24 21:34
Neutrophils % 73.5 % (42.2-75.2) 04/20/24 21:34
Lymphocytes % 11.7 % (20.5-51.1) L 04/20/24 21:34
Monocytes % 12.5 % (1.7-9.3) H 04/20/24 21:34
Eosinophils % 1.0 % (0-6) 04/20/24 21:34
Basophils % 0.5 % (0-2) 04/20/24 21:34
Creatinine 1.1 mg/dL (0.7-1.3) 04/23/24 04:13
Vital Signs
Vital Signs
Temp Pulse Resp BP Pulse Ox
99.8 F 78 17 116/56 95
04/23/24 03:00 04/23/24 05:27 04/23/24 04:00 04/23/24 05:27 04/23/24 03:00
[2024-04-23] MEDS: FOLVITE 1 MG PO (07:45)
[2024-04-23] MEDS: LANOXIN 125 MCG PO (07:45)
[2024-04-23] MEDS: DILAUDID 0.25 MG IV ×3 (11:16→20:21)
--- NOTE | 2024-04-23 12:43 | W.PN.GS2 ---
Addendum entered and electronically signed by Jamie Hampton MD 04/23/24 16:20:
I saw and examined the patient independently.
The resident's documentation was reviewed and I agree with the note, assessment and plan except where noted below.
Comment: 83-year-old male with significant cardiac history, mechanical aortic and mitral valves on Coumadin with recent robotic inguinal and ventral hernias. Now with a right pelvic hematoma status post embolization in IR as well as a left rectus
sheath hematoma that appears to have stopped. Clinically improved however hemoglobin still drifting.
Will give another additional unit of blood now.
Posttransfusion CBC ordered.
Continue holding anticoagulation.
Recommend cardiology consult given prolonged time off anticoagulation in the setting of mechanical valves
General Surgery will continue to follow
Original Note:
Today's Communication / Plan
-
Plan
-Transfuse 1 units PRBCs now
-Post-transfusion CBC ordered for tonight
-Continue on clears for now
-Continue to hold coumadin
-General surgery will continue to follow
Assessment / Plan
-
83-year-old male with a significant cardiac history and mechanical aortic and mitral valves on Coumadin who is now postoperative day 4 from a robotic recurrent right inguinal hernia repair with mesh as well as primary umbilical and epigastric hernia
repairs. He was discharged on 04/20/2024 but subsequently developed worsening swelling on his left side at home and represented found to have hematoma in his right pelvis as well as in the right rectus sheath with concern for ongoing bleeding.
Hgb 7.5 from 7.8
Vitals normal
04/21- angiogram/coil left circumflex iliac, 1 unit FFP, 1 unit PRBC
04/22- 2 units PRBCs, 1 g TXA
Plan
-Transfuse 1 units PRBCs now
-Post-transfusion CBC ordered for tonight
-Continue on clears for now
-Continue to hold coumadin
-General surgery will continue to follow
Time Spent
Total Time Spent with Patient (in minutes): 20
Subjective Data
-
Feeling low energy today
Hematoma softer, improving
Pain improving around hematoma
Denies nausea/vomiting
Tolerating clears
Date of Service: April 23, 2024
Objective Data
-
Intake and Output
04/22/24 04/23/24 04/24/24
06:59 06:59 06:59
Intake Total 200 / 200 1230 / 1230 960 / 960
Output Total 100 / 100 900 / 900 500 / 500
Balance 100 / 100 330 / 330 460 / 460
Intake:
Oral fluids 200 / 200 480 / 480 960 / 960
Blood products 250 / 250
Blood Product Amount Infused ( 500 / 500
mL)
Packed Rbc Leukoreduced Unit 250 / 250
[id number]
Packed Rbc Leukoreduced Unit 250 / 250
[id number]
Output:
Urine, Voided 100 / 100 900 / 900 500 / 500
Other:
Number of approximated MODERATE 1
amounts of urine
How many times incontinent 1
SATURATED amount urine
Vital Signs
Temp Pulse Resp BP Pulse Ox
98.6 F 86 23 114/53 95
04/23/24 11:00 04/23/24 11:16 04/23/24 10:01 04/23/24 11:16 04/23/24 10:53
Lab Results
04/23/24 20:30
04/23/24 04:13
Calcium 8.0 mg/dl (8.4-10.2) L 04/23/24 04:13
Total Bilirubin 1.8 mg/dl (0.2-1.3) H 04/23/24 04:13
AST 34 U/L (17-59) 04/23/24 04:13
ALT 22 U/L (0-50) 04/23/24 04:13
Alkaline Phosphatase 64 U/L (38-126) 04/23/24 04:13
Total Protein 5.5 g/dl (6.3-8.2) L 04/23/24 04:13
Albumin 3.1 g/dl (3.5-5.0) L 04/23/24 04:13
Physical Exam
-
Hematoma softer than prior, decreasing in size
Abdomen soft, non tender
Incisions with glue, healing
--- NOTE | 2024-04-23 13:15 | W.PN.HOSP.TC ---
Today's Communication/Plan
-
transfused 1 u as per surgery
f/u cbc
ceballos in place
hep ggt once hgb stabilizes
Assessment / Plan
Assessment / Plan
Physical Exam
General: Well Developed, Well Nourished, Comfortable and Conversant
HEENT: NormoCephalic, Anicteric, Moist mucous membranes and Atraumatic
Respiratory: Clear
Cardiac: S1/S2 and Irregular Rhythm
Breast: Deferred by me
GI: Soft, Non Tender, Non Distended and Normal Bowel Sounds
Rectal: Deferred by Provider
Genito-urinary: Deferred by me
Musculoskeletal: No Clubbing, No Cyanosis and No Edema
Skin: Warm and Rash (ecchymoses of the bilateral lower quadrant and right flank and back. Surgical suture sites C/D/I. There is a obvious right sade umbilical hematoma measuring about 5 cm in diameter. Tender to palpation.) Improved from yesterday
Neuro: AO x 3 and Nonfocal/grossly intact
Hematologic/Lymphatic: No Lymphadenopathy
Psych: Calm
#Acute on chronic blood Loss Anemia
#Post-op Hematoma
-Postoperative day 5 from a robotic recurrent right inguinal hernia repair with mesh as well as primary umbilical and epigastric hernia repairs
-Status post vitamin K, FFP, 1 unit PRBC on 04/21
� Underwent angiogram/coil left circumflex iliac on 04/21
� 04/22, continued blood loss, transfused 2 units PRBC, 1 g TXA as per surgery
- Transfuse 1 u today as per surgery 04/23
� Monitor CBC q12h
� Surgery consulted hematology
� Follow-up coags
� Hold anticoagulation, aspirin for now
� Rising creatinine precludes repeat CT imaging
�Hold antihypertensives, can switch Coreg to metoprolol
#MEDARDO
� Suspect secondary to acute blood loss, hypovolemia
� Trend creatinine, improving
� US with obstruction of jets, from hematoma
� Ceballos placed
#Hyponatremia
� Suspect secondary to hypovolemia
� Monitor with resuscitation
#Hyperkalemia
- Suspect secondary to MEDARDO versus
� Monitor and treat most
# Permanent AFIB/Mechanical Valves
- Hold carvedilol and diltiazem
- holding coumadin (takes 5mg daily)
- continue digoxin
-Can switch to IV lopressor for now, can stop if hypotensive
�Educated on risk of TXA, hypercoagulants with valves in response to combating bleed
-Once hgb stabilizes, can start hep ggt to bridge to coumadin
# #Chronic HFrEF
� Hold diuretics due to acute blood loss anemia
- hold lasix.
- hold spironolactone
-Hold entresto
#Hyperbilrubinemia
-f/u indirect bili
#hx of CVA: hold ASA; can cont statin
#CAD: Cont hold asa; cont bb; statin for now
DVT PPX - SCDs
Code status - full code
Total time spent on today's encounter was 52 minutes which included time spent in counseling the patient/family regarding diagnosis and treatment plan as listed above, goals of care, and symptom management. Case was discussed with nursing staff,
specialists, and care coordinators/case management. All labs and imaging personally reviewed by me. Remainder the time spent in detailed review of previous records, lab data, imaging, and other medical provider documentation.
Anticipated Discharge: > 48 hours
Subjective/Interval History
-
Date of Service: April 23, 2024
lethargic today
Objective Data
-
Labs:
Laboratory Results
04/23/24 04/23/24 04/23/24
04:13 04:13 04:13
WBC 9.5
Hgb 7.6 L 7.5 L
Hct 21.7 L 21.6 L
Plt Count 141
Sodium 129 L
Potassium 4.7
Chloride 98
Carbon Dioxide 27
BUN 32 H
Creatinine 1.1
Glucose 103 H
Calcium 8.0 L
Total Bilirubin 1.8 H
AST 34
ALT 22
Alkaline Phosphatase 64
04/23/24 04/23/24 04/23/24
12:30 19:00 20:30
WBC Pending
Hgb Cancelled Pending Cancelled
Hct Cancelled Pending Cancelled
Plt Count Pending
Sodium
Potassium
Chloride
Carbon Dioxide
BUN
Creatinine
Glucose
Calcium
Total Bilirubin
AST
ALT
Alkaline Phosphatase
Vital Signs:
Vital Signs
Temp Pulse Resp BP Pulse Ox
98.6 F 86 23 114/53 95
04/23/24 11:00 04/23/24 11:16 04/23/24 10:01 04/23/24 11:16 04/23/24 10:53
I&O
04/22/24 04/23/24 04/24/24
06:59 06:59 06:59
Intake Total 200 / 200 1230 / 1230 960 / 960
Output Total 100 / 100 900 / 900 500 / 500
Balance 100 / 100 330 / 330 460 / 460
Review of Systems
-
History Source: Patient
All other systems: Not reviewed unless documented
Data Reviewed
-
CT Scan: Report Reviewed by me
Ultrasound: Report Reviewed by me
Labs: Labs Reviewed by me
[2024-04-23 14:32] LABS: Direct Bilirubin 0.3 mg/dl (0.0-0.4)
--- NOTE | 2024-04-23 15:02 | CM ---
Alert awake oriented patient who lives with his Janet who lives in a 2 story home with 5 step to enter and 8 steps to bed and bathroom. He is independent in driving and in all activities of daily living [employer].He had robotic inguinal repair 5 days
ago and readmitted. He receive one unit PRBCs.
[facility] hx / No SNF history
Pharmacy [facility]
PCP DR Martinez
PLAN Will depend of hospital course of care
[2024-04-23] MEDS: ROBITUSSIN 100 MG PO (15:49)
[2024-04-23 17:56] LABS: % Basophils 0.1 % (0-2); % Eosinophils 0.7 % (0-6); % Immature Granulocytes 0.5 % (0-0.5); % Lymphocytes 5.5 % (20.5-51.1); % Monocytes 12.2 % (1.7-9.3); Absolute Eosinophils 0.1 10^3/uL (0-0.7); Absolute Immature Granulocytes 0.1 10^3/uL (0-0.05); Absolute Lymphocytes 0.5 10^3/uL (1.2-3.4); Absolute Monocytes 1.2 10^3/uL (0.1-0.6); Absolute Neutrophils 7.8 10^3/uL (1.4-6.5); Hematocrit 23.9 % (39.0-52.0); Hemoglobin 8.2 g/dL (13.0-18.0); Mean Corp Hgb Conc. 34.3 g/dL (33.0-37.0); Mean Corpuscular Hgb 31.4 pg (27.0-31.0); Mean Corpuscular Volume 91.6 fL (80.0-94.0); Mean Platelet Volume 9.7 fL (7.4-10.4); Nucleated Red Blood Cells % 0 % (-); Platelet Count 143 10^3/uL (130-400); Red Blood Cell Count 2.61 10^6/uL (4.70-6.10); Red Cell Dist. Width 16.9 % (11.5-14.5); White Blood Cell Count 9.7 10^3/uL (4.8-10.8)
[2024-04-23] MEDS: LIPITOR 40 MG PO (19:28)
[2024-04-23] MEDS: FEOSOL 325 MG PO (20:21)
[2024-04-23] MEDS: DILAUDID 0.5 MG IV (22:11)
[2024-04-23] MEDS: ZOFRAN 4 MG IV (22:19)
--- NOTE | 2024-04-23 22:26 | PTCARENOTE ---
Pt. complaining of increasing pain, level 9 out of 10, aching/sharp in right lower back/pelvis- area assessed, some swelling and firmness present, no bruising. Abdomen ecchymotic anteriorly and extending into left flank/back, firm on palpation with
approximated lap sites without drainage. BP stable at 133/68, A-fib 70's-80's on the monitor. Assessment findings reported to Dr. Hampton, advised to give Dilaudid 0.5 mg (pt. had 0.25 mg at 2020). Dose given which provided much relief, pain level
down to 4. Zofran also given for nausea (pt. states he has had intermittent nausea, emesis bag already present at bedside). Pt. currently resting quietly.
[2024-04-24] VITALS (27 sets, daily range): BP systolic 102–146; BP diastolic 52–91; BMI 23.1
[2024-04-24] MEDS: DILAUDID 0.5 MG IV ×3 (00:27→06:19)
[2024-04-24] MEDS: LOPRESSOR 5 MG IV ×4 (00:43→17:24)
[2024-04-24 04:32] LABS: ALT (SGPT) 21 U/L (0-50); AST (SGOT) 33 U/L (17-59); Albumin 3.1 g/dl (3.5-5.0); Alkaline Phosphatase 67 U/L (38-126); Blood Urea Nitrogen 24 mg/dl (9-20); Calcium 8.1 mg/dl (8.4-10.2); Carbon Dioxide 28 mmol/L (22-30); Chloride 100 mmol/L (98-107); Estimated Creatinine Clearance 59 ml/min; Glucose 99 mg/dl (70-99); Potassium 4.7 mmol/L (3.5-5.1); Sodium 130 mmol/L (135-145); Total Bilirubin 1.8 mg/dl (0.2-1.3); Total Protein 5.6 g/dl (6.3-8.2); eGFR > 60.00
[2024-04-24 04:39] LABS: Hematocrit 24.6 % (39.0-52.0); Hemoglobin 8.3 g/dL (13.0-18.0); Mean Corp Hgb Conc. 33.7 g/dL (33.0-37.0); Mean Corpuscular Hgb 31.4 pg (27.0-31.0); Mean Corpuscular Volume 93.2 fL (80.0-94.0); Mean Platelet Volume 9.5 fL (7.4-10.4); Platelet Count 149 10^3/uL (130-400); Red Blood Cell Count 2.64 10^6/uL (4.70-6.10); Red Cell Dist. Width 16.8 % (11.5-14.5); White Blood Cell Count 9.9 10^3/uL (4.8-10.8)
--- NOTE | 2024-04-24 04:41 | PTCARENOTE ---
Pt. reports right lower back pain has decreased from a level 9 or 10 earlier in shift to a 6 or 7 after getting some sleep. No change to assessment. Morning hemoglobin resulted 8.3.
[2024-04-24] MEDS: TYLENOL 650 MG PO (06:20)
[2024-04-24] MEDS: SYNTHROID 37.5 MCG PO (06:24)
[2024-04-24] MEDS: FOLVITE 1 MG PO (08:59)
[2024-04-24] MEDS: LANOXIN 125 MCG PO (08:59)
--- NOTE | 2024-04-24 11:08 | W.PN.GS2 ---
Today's Communication / Plan
-
Will get a CTA abdomen pelvis. If no concern for ongoing bleeding, okay to start heparin drip and advance diet to regular.
-Continue to hold coumadin
-General surgery will continue to follow
Assessment / Plan
-
83-year-old male with a significant cardiac history and mechanical aortic and mitral valves on Coumadin who is now postoperative day 5 from a robotic recurrent right inguinal hernia repair with mesh as well as primary umbilical and epigastric hernia
repairs. He was discharged on 04/20/2024 but subsequently developed worsening swelling on his left side at home and represented found to have hematoma in his right pelvis as well as in the left rectus sheath. Hemoglobin appears stable
Plan
Will get a CTA abdomen pelvis. If no concern for ongoing bleeding, okay to start heparin drip and advance diet to regular.
-Continue to hold coumadin
-General surgery will continue to follow
Time Spent
Total Time Spent with Patient (in minutes): 20
Subjective Data
-
Date of Service: April 24, 2024
Interval Events:
Patient complaining of some increasing right back pelvic pain likely the hematoma moving dependently that was pretty significant overnight but improved this morning. He is hungry and wants to advance his diet. He is passing gas and voiding well.
He is tolerating his clear liquid diet without any nausea or vomiting.
Objective Data
-
Intake and Output
04/23/24 04/24/24 04/25/24
06:59 06:59 06:59
Intake Total 1230 / 1230 2650 / 2650
Output Total 900 / 900 1600 / 1600
Balance 330 / 330 1050 / 1050
Intake:
Oral fluids 480 / 480 2400 / 2400
Blood products 250 / 250
Blood Product Amount Infused ( 500 / 500 250 / 250
mL)
Packed Rbc Leukoreduced Unit 250 / 250
[id number]
Packed Rbc Leukoreduced Unit 250 / 250
[id number]
Packed Rbc Leukoreduced Unit 250 / 250
[id number]
Output:
Urine, Voided 900 / 900 1600 / 1600
Vital Signs
Temp Pulse Resp BP Pulse Ox
98.3 F 73 16 117/57 98
04/24/24 07:30 04/24/24 08:59 04/24/24 03:00 04/24/24 06:30 04/24/24 03:00
Lab Results
04/24/24 04:01
04/24/24 04:01
Calcium 8.1 mg/dl (8.4-10.2) L 04/24/24 04:01
Total Bilirubin 1.8 mg/dl (0.2-1.3) H 04/24/24 04:01
Direct Bilirubin 0.3 mg/dl (0.0-0.4) 04/23/24 04:13
AST 33 U/L (17-59) 04/24/24 04:01
ALT 21 U/L (0-50) 04/24/24 04:01
Alkaline Phosphatase 67 U/L (38-126) 04/24/24 04:01
Total Protein 5.6 g/dl (6.3-8.2) L 04/24/24 04:01
Albumin 3.1 g/dl (3.5-5.0) L 04/24/24 04:01
Physical Exam
-
GENERAL/NEURO: Awake, Alert, no distress
CHEST: Unlabored breathing on RA
ABDOMEN: Soft, Non-Tender, Non-Distended, incisions remain clean dry and intact. Stable ecchymoses noted over the entire abdomen. His left rectus sheath seems much softer than prior examination. He does have new bulging of his right back compared
to his left, I suspect this is his hematoma moving dependently.
Patient has a ceballos catheter: No
Patient has a central line: No
--- NOTE | 2024-04-24 11:10 | CON.CAR ---
Addendum entered and electronically signed by Gordon Taylor DO 04/24/24 16:39:
I saw and examined the patient.
The Chocolate Temperer's note was reviewed and I agree with the note.
Comment:
Plan:
Resume anticoagulation once okay with surgery and primary service. Discussed with Dr. Gu, surgery, consider IV heparin tomorrow a.m. with no bolus.
If he tolerates IV heparin then would bridge with Coumadin given his mechanical MVR and AVR.
Would like to resume anticoagulation when possible given thrombosis risk, which is slightly lower with the fact that his valve replacements are not recent.
Cont to monitor H/H closely and transfuse as needed
Perm AFib with Dig for rate control. HR is stable.
Cardiomyopathy with EF of 35 to 40%: Coreg, Entresto, Aldactone, Lasix and diltiazem currently on hold due to hypotension in the setting of acute bleed/anemia. Would resume beta-candida if blood pressure allows.
Appears euvolemic
Discussed with surgery and nursing.
Pt was appreciative.
Original Note:
Consultation
Consultation Request
Date/Time Consultation Requested: 04/24/2024
Date/Time Consultation Performed: 04/24/2024
Requesting Provider: Dr. Tom
Performing Provider: Melinda Vivas PA-C for Dr. Gordon Taylor
Reason for Consultation: Assistance in anticoagulation management
Medical History
-
Chief Complaint: fatigue
History of Present Illness:
Patient is an 83 yo M with PMH of mechanical aortic and mitral valve replacements, permanent atrial fibrillation, chronic warfarin therapy, prior strokes/TIA, multivessel coronary artery disease (deemed poor candidate for CABG by CTS), history of GI
bleeds in 2021, 06/2022 & 07/2022 with negative work-up who presented to [place] emergency department on 04/20/2024 after having recent inguinal and ventral hernia repairs 04/18/2024 with sudden onset abdominal discomfort and skin discoloration.
During his prior surgical hospitalization had a heparin bridge for his anticoagulation. He was found to have large right retroperitoneal/intraperitoneal hematoma as well as rectus sheath hematoma. He underwent vascular angiogram which revealed
site of bleeding as proximal branch of the RIGHT circumflex iliac artery which was treated with coil embolization of the vessel by IR on 04/21/2024. Due to ongoing anemia patient has received 4 units of blood. Aspirin and anticoagulation have
remained on hold. Cardiology being asked to see patient to assist in management of anticoagulation given history of mechanical aortic and mitral valve as well as permanent atrial fibrillation.
At time of this evaluation patient denies any cardiac symptoms and denies chest pain, shortness of breath, dizziness or lightheadedness. He does continue to have some right flank/back discomfort that occurs intermittently and is sharp.
PMH:
Mechanical aortic valve replacement
Mechanical mitral valve replacement
Permanent atrial fibrillation
chronic warfarin therapy, managed by [facility] coumadin clinic
History of GI bleeds 2021, 06/2022, 07/2022
Chronic HFrEF
mixed ischemic/Nonischemic cardiomyopathy
Moderate-severe coronary artery disease by cardiac cath 04/2022. (Disease in distal left main and ostial LAD/mid LAD). Opted for medical management after he was deemed not to be suitable candidate for redo sternotomy/CABG by [facility].
Also seen by [facility].
LBBB
prior CVA
chronic anemia
s/p inguinal and ventral hernia repairs 04/18/2024
Past Medical History
Past Medical History: Other (in HPI)
Past Surgical History: Cardiac (Status post mechanical aortic and mitral valve), Orthopedic (Left TKR with revision) and Other (s/p inguinal and ventral hernia repairs 04/18/2024, Right circumflex iliac artery bleed s/p coil embolization by IR
04/21/2024)
Social History
Tobacco: Non-Smoker
Alcohol: None
Drug: None
Personal:
Living: With Family
Family History
Family History: Cancer
Allergies / Home Medications
Allergy/AdvReac Type Severity Reaction Status Date / Time
meperidine [From Demerol] Allergy Anaphylaxis Verified 04/20/24 21:02
�Medication �Instructions �Recorded �Confirmed �Type
warfarin 5 mg tablet (Jantoven) 5 mg PO QPM Blood clot 08/13/21 04/17/24 History
prevention/tx
atorvastatin 40 mg tablet 40 mg PO QPM High cholesterol 07/22/22 04/17/24 History
digoxin 125 mcg (0.125 mg) tablet 125 mcg PO DAILY Arrhythmia 07/22/22 04/17/24 History
ferrous sulfate 325 mg (65 mg 325 mg PO HS Supplement 07/22/22 04/17/24 History
iron) tablet
folic acid 1 mg tablet 1 mg PO DAILY Supplement 07/22/22 04/17/24 History
furosemide 40 mg tablet 40 mg PO DAILY Fluid 07/22/22 04/17/24 History
retention/Swelling
sacubitril 24 mg-valsartan 26 mg 1 tab PO BID Heart Failure 07/22/22 04/17/24 History
tablet (Entresto)
carvedilol 6.25 mg tablet 3.125 mg PO BID Blood Pressure 09/13/23 04/17/24 History
coenzyme Q10 100 mg capsule 300 mg PO DAILY Supplement 09/13/23 04/17/24 History
(CoQ-10)
diltiazem HCl 120 mg tablet 120 mg PO QPM Heart 09/13/23 04/17/24 History
Disease/Condition
omega 1-aju-bur-fish oil 1,000 mg 2 cap PO DAILY Supplement 09/13/23 04/17/24 History
(120 mg-180 mg) capsule (Fish Oil)
aspirin 81 mg chewable tablet 81 mg PO Q48H Blood Clot 11/01/23 04/17/24 History
(Aspirin Childrens) Prevention/Tx
cholecalciferol (vitamin D3) 50 50 mcg PO DAILY Supplement 11/01/23 04/17/24 History
mcg (2,000 unit) capsule (Vitamin
D3)
garlic 300 mg capsule 600 mg PO QPM Supplement 11/01/23 04/17/24 History
levothyroxine 37.5 mcg capsule 37.5 mcg PO DAILY Thyroid 11/01/23 04/17/24 History
Basis Combination 1 dose PO DAILY 04/13/24 04/17/24 History
spironolactone 25 mg tablet 25 mg PO DAILY Fluid 04/13/24 04/17/24 History
Retention/Swelling
enoxaparin 60 mg/0.6 mL 60 mg SC Q12H Blood Clot 04/17/24 04/17/24 History
subcutaneous syringe (Lovenox) Prevention/Tx
Review of Systems
-
History Source: Patient
All other systems: Negative unless noted
Physical Exam
Vital Signs
Temp Pulse Resp BP Pulse Ox
98.3 F 73 16 117/57 98
04/24/24 07:30 04/24/24 08:59 04/24/24 03:00 04/24/24 06:30 04/24/24 03:00
GEN: No distress, awake, Ox3
HEENT: supple, anicteric, mmm
LUNGS: CTA anteriorly, no wheezes/rales
CV: Irreg irreg, audible click of mechanical valve with radiating 1/6 syst murmur
ABD: soft, BS+, NT/ND
EXT: No edema, clubbing or cyanosis
NEURO: Gross non-focal
SKIN: No rash, warm, dry, pink
Lab Results
04/24/24 04:01
04/24/24 04:01
Impression / Plan
-
Primary Lobster Fisherman: Dr. Ballesteros
Assessment:
Presentation with sudden onset abdominal discomfort and skin discoloration 04/20/2024
Recent inguinal and ventral hernia repairs 04/18/2024
large right retroperitoneal/intraperitoneal hematoma as well as rectus sheath hematoma
s/p Right circumflex iliac artery bleed s/p coil embolization by IR 04/21/2024
Acute anemia due to blood loss
s/p 1 unit RBCs & 1 unit FFP on 04/21/24, 2 units RBCs 04/22/24, 1 unit RBC 04/23/2024
Mechanical aortic valve replacement
Mechanical mitral valve replacement
Permanent atrial fibrillation
chronic warfarin therapy, managed by [facility] coumadin clinic
History of GI bleeds 2021, 06/2022, 07/2022
Chronic HFrEF
mixed ischemic/Nonischemic cardiomyopathy
Moderate-severe coronary artery disease by cardiac cath 04/2022. (Disease in distal left main and ostial LAD/mid LAD). Opted for medical management after he was deemed not to be suitable candidate for redo sternotomy/CABG by [facility].
Also seen by [facility].
LBBB
prior CVA
chronic anemia
s/p inguinal and ventral hernia repairs 04/18/2024
Echo 09/11/21: EF 45-50%, well-seated mechanical mitral valve replacement with a mean gradient of 7 mmHg. No significant regurgitation.�Well-seated mechanical aortic replacement with peak and mean gradients of 18�and 9 mmHg, respectively. Trace aortic
regurgitation. Tricuspid valve opens normally with mild tricuspid regurgitation. Estimated pulmonary artery pressure of 31 mmHg, assuming a right atrial pressure of 5 mmHg.
Echo 04/13/22: EF 25%, global hypokinesis, well-seated mechanical mitral valve prosthesis with mean gradient 4 mmHg and no MR, well-seated mechanical aortic valve prosthesis with peak/mean 11/7 mmHg and trace aortic regurgitation, sev TR with PAP 51
mmHg, Mildly dilated aortic root. SOV at 4.3 cm. Normal ascending aorta. Suboptimal suprasternal notch view, enlarged RV size with reduced RV systolic function
Echocardiogram 04/03/2024: Ejection fraction 35-40%, left ventricle mildly dilated, mechanical mitral valve with mean gradient of 7 mmHg, mechanical AVR with mean gradient of 8 mmHg, mild to moderate TR with PA systolic pressure of 40-45 mmHg
Cardiac cath 04/16/2022: LM:40% distal, LAD: Distal left main into extending into ostial LAD 60 to 70%, 60 to 70% mid LAD stenosis. � The iFR in the distal LAD serially measured below the ischemic threshold 0.79, 0.83, and 0.74. LCX: LI, RCA:50% mid
[facility] 04/17/2022:�Hemodynamics (mmHg):RA (m : 9; RV (s/d,m) : 31/3, 8; PA (s/d, m) : 34/14, 22; PCWP (m) : 12, with v waves up to 18; Aortic saturation: 97%; PA saturation: 64.7%; Cardiac Output : 4.6 L/min
Cardiac Index : 2.50 L/min/m-2; Systemic vascular resistance: 1349 dsc^(-5)p; Pulmonary vascular resistance: 2.19 Heath unit
Plan:
Presented 04/20/2024 with sudden onset abdominal discomfort and skin discoloration. Patient was s/p inguinal and ventral hernia repairs 04/18/2024. Found to have large right retroperitoneal/intraperitoneal hematoma as well as rectus sheath hematoma.
Now s/p Right circumflex iliac artery bleed with coil embolization by IR 04/21/2024.
Still having right sided abdominal/flank pain. Repeat CT abd/pelvis pending
Continue management per surgery
Acute anemia due to blood loss secondary to right circumflex iliac bleed. Baseline hemoglobin preop 11's. Lowest hemoglobin was 6.8 on 04/22/24. Current hemoglobin 7.6. Anticoagulation remains on hold. Transfuse if hemoglobin less than 7
-s/p 1 unit RBCs & 1 unit FFP on 04/21/24, 2 units RBCs 04/22/24, 1 unit RBC 04/23/2024
-Hemodynamically stable
-Agree with supplemental iron
History of mechanical aortic and mitral valves. Patient was bridged with heparin at time of hernia repairs. INR never returned to therapeutic range post surgery.
-Anticoagulation currently remains on hold due to ongoing anemia with low hemoglobin of 6.8.
-Seen by heme-onc this admission. They are recommending slow reintroduction of anticoagulation with heparin no bolus in next 24 hours. If stable then could consider Lovenox bridge with eventual resumption of Coumadin
-Aspirin also remains on hold.
-Would avoid FFP given mechanical valves.
Permanent atrial fibrillation with controlled ventricular response.
-Continue digoxin for rate control.
-Can utilize as needed IV Lopressor if needed. Consider restarting low-dose beta-candida. Previously was on carvedilol and diltiazem as outpatient given history of cardiomyopathy.
Cardiomyopathy with EF of 35 to 40%
-Coreg, Entresto, Aldactone, Lasix and diltiazem currently on hold due to hypotension in the setting of acute bleed/anemia. Would resume beta-candida if blood pressure allows.
-Weight overall appears to be relatively stable. Recent outpatient weight was 158 pounds. Patient currently 151 pounds
HPI 04/24/2024:
Patient is an 83 yo M with PMH of mechanical aortic and mitral valve replacements, permanent atrial fibrillation, chronic warfarin therapy, prior strokes/TIA, multivessel coronary artery disease (deemed poor candidate for CABG by CTS), history of GI
bleeds in 2021, 06/2022 & 07/2022 with negative work-up who presented to [place] emergency department on 04/20/2024 after having recent inguinal and ventral hernia repairs 04/18/2024 with sudden onset abdominal discomfort and skin discoloration.
During his prior surgical hospitalization had a heparin bridge for his anticoagulation. He was found to have large right retroperitoneal/intraperitoneal hematoma as well as rectus sheath hematoma. He underwent vascular angiogram which revealed
site of bleeding as proximal branch of the RIGHT circumflex iliac artery which was treated with coil embolization of the vessel by IR on 04/21/2024. Due to ongoing anemia patient has received 4 units of blood. Aspirin and anticoagulation have
remained on hold. Cardiology being asked to see patient to assist in management of anticoagulation given history of mechanical aortic and mitral valve as well as permanent atrial fibrillation.
-Patient presents to the ER with progressive fatigue over the last 2 weeks, and is found to have anemia and heme positive stool. He has history of GI bleeds, most recently 06/2022 status post endoscopy/enteroscopy without overt source. At time of
06/2022 admission, his INR had been elevated at 6.0. Today INR is within normal range at 2.18.
-hold coumadin. given history of CVA and with mechanical valves, may need to consider IV heparin when INR<2 and able from bleeding standpoint
-follow hgb. receiving blood. GI evaluation
-iron studies 07/21/22 reviewed. on OP feosol
-elevated LDH noted. mech valves by echo 04/2022 without evidence of significant leak
-follow volume status in setting of IVF and PRBC administration. with crackles on exam today. check proBNP. consider for dose of IV lasix. on po lasix 40mg daily as OP. Cr stable at 1.1
-he is planned to undergo evaluation of MV CAD at [facility] 08/2022.
-consider repeat echo to reeval EF, was 25% 04/2022. continue coreg, entresto, jardiance
-in rate controlled afib. ordered dig level
-d/w patient and at bedside
Data Reviewed
-
EKG: Report Reviewed by me, Discussed with Patient and Discussed with Family
Medical Tests (Nuc Med, Echo etc): Report Reviewed by me, Discussed with Patient and Discussed with Family
Labs: Labs Reviewed by me, Discussed with Patient and Discussed with Family
Old Records: Reviewed
[2024-04-24] MEDS: ROXICODONE 5 MG PO ×2 (11:19→17:30)
--- NOTE | 2024-04-24 13:56 | W.PN.HOSP.TC ---
Today's Communication/Plan
-
f/u CTA a/p report
diet advancement per GS
Cardio consult
f/u hbg
Assessment / Plan
Assessment / Plan
#Acute on chronic blood Loss Anemia
#Post-op Hematoma
#Status post umbilical/ventral hernia repair on 04/18
-Postoperative from a robotic recurrent right inguinal hernia repair with mesh as well as primary umbilical and epigastric hernia repairs
-Status post right iliac arterial branch embolization bu IR
-Status post vitamin K, FFP and 4 UPRBC
-also got IV Txa on 04/22
-F/u Hbg level
-Repeat CTA abdomen pelvis ordered as patient having some right flank swelling concern of new hematoma
-Cardiology consulted for further help as patient will eventually be restarted on anticoagulation with history of mechanical mitral/aortic
# Permanent A Fib /Mechanical Valves
-on Dig currently/ Diltiazem-BB on hold
-Coumadin on hold
-Cardio consulted for help with AC
#MEDARDO -resolved
�Suspect secondary to acute blood loss, hypovolemia
�US with obstruction of jets, from hematoma
�Hand placed
#Hyponatremia
� Suspect secondary to hypovolemia
� Monitor with resuscitation
#Hyperkalemia - resolved
- Suspect secondary to MEDARDO versus
# Chronic HFrEF
- Lasix/entresto/aldactone on hold
#Hyperbilirubinemia
-f/u indirect bili
#hx of CVA
-hold ASA; can cont statin
#CAD
Cont hold asa; cont bb; statin for now
DVT PPX - SCDs
Code status - full code
Discussed with cardio/GS
Total time spent 51-minute
Anticipated Discharge: > 48 hours
Subjective/Interval History
-
Date of Service: April 24, 2024
feeling some pain/discomfort at right pelvis
denies abd pain/ nausea /vomiting
Objective Data
-
Labs:
Laboratory Results
04/24/24
04:01
WBC 9.9
Hgb 8.3 L
Hct 24.6 L
Plt Count 149
Sodium 130 L
Potassium 4.7
Chloride 100
Carbon Dioxide 28
BUN 24 H
Creatinine 0.9
Glucose 99
Calcium 8.1 L
Total Bilirubin 1.8 H
AST 33
ALT 21
Alkaline Phosphatase 67
Vital Signs:
Vital Signs
Temp Pulse Resp BP Pulse Ox
97.8 F 89 23 126/82 96
04/24/24 11:54 04/24/24 11:18 04/24/24 11:16 04/24/24 11:18 04/24/24 11:16
I&O
04/23/24 04/24/24 04/25/24
06:59 06:59 06:59
Intake Total 1230 / 1230 2650 / 2650 480 / 480
Output Total 900 / 900 1600 / 1600 150 / 150
Balance 330 / 330 1050 / 1050 330 / 330
Review of Systems
-
Respiratory: Reports No Symptoms
Cardiac: Reports No Symptoms
Abdomen/GI: Reports Abdominal Pain; Denies Nausea or Vomiting
Physical Exam
-
General: No Apparent Distress
HEENT: Moist Mucous Membranes
Respiratory: Clear to Auscultation; Negative Wheezes or Rales
Cardiac: S1/S2, Irregular Rhythm and Murmur (2/6 systolic m, click)
GI: Soft, Nontender and Nondistended
Musculoskeletal: No Edema
Neuro: Awake, Alert and Oriented
[2024-04-24] MEDS: LIPITOR 40 MG PO (17:23)
--- NOTE | 2024-04-24 17:33 | SUR.OPER ---
Patient AOx3. Patient is [employer]. Patient on RA. VSS. A fib with BBB on monitor. Patient complains of abdominal pain. Pain medication provided per MAR. Amy colored urine. Lap sites closed with surgical glue and approximated. Ecchymosis throughout
abdomen. Call helton within reach, bed in lowest position, and bed of wheels locked.
[2024-04-24] MEDS: ZOFRAN 4 MG IV (18:26)
[2024-04-24] MEDS: FEOSOL 325 MG PO (20:48)
[2024-04-25] VITALS (12 sets, daily range): BP systolic 101–136; BP diastolic 49–77; PULSE 98; BMI 23.8
[2024-04-25] MEDS: LOPRESSOR 5 MG IV ×4 (00:09→18:12)
[2024-04-25] MEDS: TYLENOL 650 MG PO (04:45)
[2024-04-25 05:18] LABS: Hemoglobin 8.3 g/dL (13.0-18.0); Mean Corp Hgb Conc. 33.2 g/dL (33.0-37.0); Mean Corpuscular Hgb 31.1 pg (27.0-31.0); Mean Corpuscular Volume 93.6 fL (80.0-94.0); Mean Platelet Volume 9.6 fL (7.4-10.4); Platelet Count 176 10^3/uL (130-400); Red Blood Cell Count 2.67 10^6/uL (4.70-6.10); Red Cell Dist. Width 16.6 % (11.5-14.5); White Blood Cell Count 8.7 10^3/uL (4.8-10.8)
[2024-04-25] MEDS: ZOFRAN 4 MG IV ×2 (05:31→21:08)
[2024-04-25 05:37] LABS: ALT (SGPT) 20 U/L (0-50); AST (SGOT) 31 U/L (17-59); Albumin 3.3 g/dl (3.5-5.0); Alkaline Phosphatase 70 U/L (38-126); Blood Urea Nitrogen 23 mg/dl (9-20); Calcium 8.4 mg/dl (8.4-10.2); Carbon Dioxide 26 mmol/L (22-30); Chloride 97 mmol/L (98-107); Estimated Creatinine Clearance 53 ml/min; Glucose 94 mg/dl (70-99); Potassium 4.7 mmol/L (3.5-5.1); Sodium 130 mmol/L (135-145); Total Bilirubin 2.2 mg/dl (0.2-1.3); Total Protein 5.9 g/dl (6.3-8.2); eGFR > 60.00
[2024-04-25] MEDS: SYNTHROID 37.5 MCG PO (06:19)
--- NOTE | 2024-04-25 06:39 | PTCARENOTE ---
Patient reports not sleeping well overnight. Afib w/ BBB on tele. PRN Tylenol for 4/10 back pain and Zofran for nausea provided per MAR. Refused SCDs after placing on pt. Neuro vascular checks unchanged. Voiding robert/straw color urine via urinal.
Lap sites intact. Pt turns self while in bed. Pt thankful for care. Call helton within reach. Pt calls appropriately.
--- NOTE | 2024-04-25 07:11 | W.PN.GS2 ---
Today's Communication / Plan
-
`
Assessment / Plan
-
Assessment: 83-year-old male with a significant cardiac history and mechanical aortic and mitral valves on Coumadin who is now postoperative day 8 from a robotic recurrent right inguinal hernia repair with mesh as well as primary umbilical and
epigastric hernia repairs. He was discharged on 04/20/2024 but subsequently developed worsening swelling on his left side at home and represented found to have hematoma in his right pelvis as well as in the left rectus sheath.
AFVSS
Hemoglobin 8.3 -stable since last transfusion 04/23/2024
CT abdomen/pelvis angiogram 04/24/2024. Images personally reviewed as well as radiologist report. Left rectus sheath hematoma significantly improved. Right retroperitoneal hematoma essentially stable. No active bleeding.
Plan: Start heparin drip -no bolus
Start Coumadin this evening 5 mg p.o.
Regular diet with bowel regiment
Monitor H&H for signs of rebleeding
Subjective Data
-
Date of Service: April 25, 2024
Patient seen and examined
Sleeping but easily awoke
pain controlled, right lateral abdominal and back discomfort stable. Left anterior abdominal pain improved
Passing flatus
Tolerating liquid diet
Objective Data
-
Intake and Output
04/24/24 04/25/24 04/26/24
06:59 06:59 06:59
Intake Total 2650 / 2650 480 / 480
Output Total 1600 / 1600 950 / 950
Balance 1050 / 1050 -470 / -470
Intake:
Oral fluids 2400 / 2400 480 / 480
Blood Product Amount Infused ( 250 / 250
mL)
Packed Rbc Leukoreduced Unit 250 / 250
[id number]
Output:
Urine, Voided 1600 / 1600 950 / 950
Other:
Number of approximated LARGE 1
amounts of urine
Vital Signs
Temp Pulse Resp BP Pulse Ox
98.7 F 96 15 101/66 97
04/25/24 03:22 04/25/24 06:20 04/25/24 06:00 04/25/24 06:00 04/25/24 06:00
Lab Results
04/25/24 04:53
Calcium 8.4 mg/dl (8.4-10.2) 04/25/24 04:53
Total Bilirubin 2.2 mg/dl (0.2-1.3) H 04/25/24 04:53
Direct Bilirubin 0.3 mg/dl (0.0-0.4) 04/23/24 04:13
AST 31 U/L (17-59) 04/25/24 04:53
ALT 20 U/L (0-50) 04/25/24 04:53
Alkaline Phosphatase 70 U/L (38-126) 04/25/24 04:53
Total Protein 5.9 g/dl (6.3-8.2) L 04/25/24 04:53
Albumin 3.3 g/dl (3.5-5.0) L 04/25/24 04:53
Physical Exam
-
NAD AAOx3
ABD: Left lateral abdominal wall ecchymosis and ecchymosis at surgical sites.
Left rectus hematoma smaller, stable on exam.
Right lateral flank with firmness and some tenderness to touch. No rebound rigidity or guarding.
[2024-04-25 07:52] LABS: APTT 42.7 Sec (23.4-35.0)
[2024-04-25] MEDS: LANOXIN 125 MCG PO (08:03)
[2024-04-25] MEDS: MIRALAX 17 GRAMS PO (08:03)
[2024-04-25] MEDS: FOLVITE 1 MG PO (08:04)
[2024-04-25] MEDS: HEPARIN 25000 UNITS/250 ML IV (08:16)
--- NOTE | 2024-04-25 08:23 | W.PN.UPDATE ---
Update Note
Progress Note Update
H/H stable, heparin/coumadin being resumed today
No acute hematology issues, will sign off
--- NOTE | 2024-04-25 09:15 | W.PN.HOSP.TC ---
Today's Communication/Plan
-
start warfarin bridge
heparin w/o bolus
pt/ot
f/u hbg level
transfer tele
Assessment / Plan
Assessment / Plan
Repeat CTA a/p on 04/24
1. Redemonstration of large RIGHT pelvic extraperitoneal hematoma, grossly similar size compared to the prior CT with no evidence for active bleeding/contrast extravasation.
2. Left rectus sheath hematoma also appears smaller in size and now appears completely thrombosed with no evidence for active bleeding.
3. Trace bilateral pleural effusions with some chronic right-sided pleural thickening/consolidative changes within the posterior right lower lobe. Cardiomegaly.
4. Moderate extrinsic compression of the bladder within the pelvis.
5. Additional findings above.

#Acute on chronic blood Loss Anemia
#Post-op Hematoma
#Status post umbilical/ventral hernia repair on 04/18
-Postoperative from a robotic recurrent right inguinal hernia repair with mesh as well as primary umbilical and epigastric hernia repairs
-Status post right iliac arterial branch embolization bu IR
-Status post vitamin K, FFP and 4 UPRBC
-also got IV Txa on 04/22
-Repeat CTA abdomen pelvis findings as above.
-Cardiology discussed with gen surgery and patient started on heparin drip without bolus, started on warfarin 5mg/d as well. check INR in morning.
# Permanent A Fib /Mechanical Valves
-on Dig currently/ Diltiazem-BB on hold
-Coumadin resumed from today
#MEDARDO -resolved
�Suspect secondary to acute blood loss, hypovolemia, contrast need.
-monitor for JUANITO with multiple contrast studies this admission/hypotension. Entresto/Lasix/Aldactone remains on hold.
�US with obstruction of jets, from hematoma
�Hand removed
#Hyponatremia
� Suspect secondary to hypovolemia
� Monitor with resuscitation
#Hyperkalemia - resolved
- Suspect secondary to MEDARDO versus
# Chronic HFrEF
- Lasix/Entresto/Aldactone on hold
#Hyperbilirubinemia
-f/u indirect bili
#hx of CVA
-hold ASA; can cont statin
#CAD
Cont hold asa; cont bb; statin for now
DVT PPX - SCDs
Code status - full code
Anticipated Discharge: > 48 hours
Subjective/Interval History
-
Date of Service: April 25, 2024
resting comfortably in bed
denies of having any excessive back/abd pain
no BM yet
Objective Data
-
Labs:
Laboratory Results
04/25/24 04/25/24 04/25/24
04:53 07:09 07:31
WBC 8.7 Cancelled
Hgb 8.3 L Cancelled
Hct 25.0 L Cancelled
Plt Count 176 Cancelled
APTT 42.7 H
Sodium 130 L
Potassium 4.7
Chloride 97 L
Carbon Dioxide 26
BUN 23 H
Creatinine 1.0
Glucose 94
Calcium 8.4
Total Bilirubin 2.2 H
AST 31
ALT 20
Alkaline Phosphatase 70
04/25/24
14:30
WBC
Hgb
Hct
Plt Count
APTT Pending
Sodium
Potassium
Chloride
Carbon Dioxide
BUN
Creatinine
Glucose
Calcium
Total Bilirubin
AST
ALT
Alkaline Phosphatase
Vital Signs:
Vital Signs
Temp Pulse Resp BP Pulse Ox
98.4 F 82 10 115/77 94
04/25/24 07:55 04/25/24 08:03 04/25/24 08:00 04/25/24 08:00 04/25/24 08:00
I&O
04/24/24 04/25/24 04/26/24
06:59 06:59 06:59
Intake Total 2650 / 2650 480 / 480
Output Total 1600 / 1600 950 / 950
Balance 1050 / 1050 -470 / -470
Review of Systems
-
Respiratory: Reports No Symptoms
Cardiac: Reports No Symptoms
Abdomen/GI: Reports No Symptoms
Physical Exam
-
General: No Apparent Distress and Comfortable
HEENT: Negative Oxygen
Respiratory: Clear to Auscultation
Cardiac: Regular Rhythm and S1/S2; Negative Murmur or Rub
GI: Soft, Normal Bowel Sounds and Other (Echymosis of abd wall, no dehiscence of lap site)
Musculoskeletal: No Edema
Neuro: Awake, Alert, Oriented, No Motor Deficits and Nonfocal/Grossly Intact
Psych: Calm
--- NOTE | 2024-04-25 09:31 | W.PN.CARDCBS ---
Today's Communication / Plan
-
Heparin to coumadin bridge
Hold GDMT for CHF given marginal BP, will add back slowly
Impression / Plan
-
Primary Boat Driver: Dr. Ballesteros
Assessment:
Presentation with sudden onset abdominal discomfort and skin discoloration 04/20/2024
Recent inguinal and ventral hernia repairs 04/18/2024
large right retroperitoneal/intraperitoneal hematoma as well as rectus sheath hematoma
s/p Right circumflex iliac artery bleed s/p coil embolization by IR 04/21/2024
Acute anemia due to blood loss
s/p 1 unit RBCs & 1 unit FFP on 04/21/24, 2 units RBCs 04/22/24, 1 unit RBC 04/23/2024
Mechanical aortic valve replacement
Mechanical mitral valve replacement
Permanent atrial fibrillation
chronic warfarin therapy, managed by [facility] coumadin clinic
History of GI bleeds 2021, 06/2022, 07/2022
Chronic HFrEF
mixed ischemic/Nonischemic cardiomyopathy
Moderate-severe coronary artery disease by cardiac cath 04/2022. (Disease in distal left main and ostial LAD/mid LAD). Opted for medical management after he was deemed not to be suitable candidate for redo sternotomy/CABG by [facility].
Also seen by [facility].
LBBB
prior CVA
chronic anemia
s/p inguinal and ventral hernia repairs 04/18/2024
Echo 09/11/21: EF 45-50%, well-seated mechanical mitral valve replacement with a mean gradient of 7 mmHg. No significant regurgitation.�Well-seated mechanical aortic replacement with peak and mean gradients of 18�and 9 mmHg, respectively. Trace aortic
regurgitation. Tricuspid valve opens normally with mild tricuspid regurgitation. Estimated pulmonary artery pressure of 31 mmHg, assuming a right atrial pressure of 5 mmHg.
Echo 04/13/22: EF 25%, global hypokinesis, well-seated mechanical mitral valve prosthesis with mean gradient 4 mmHg and no MR, well-seated mechanical aortic valve prosthesis with peak/mean 11/7 mmHg and trace aortic regurgitation, sev TR with PAP 51
mmHg, Mildly dilated aortic root. SOV at 4.3 cm. Normal ascending aorta. Suboptimal suprasternal notch view, enlarged RV size with reduced RV systolic function
Echocardiogram 04/03/2024: Ejection fraction 35-40%, left ventricle mildly dilated, mechanical mitral valve with mean gradient of 7 mmHg, mechanical AVR with mean gradient of 8 mmHg, mild to moderate TR with PA systolic pressure of 40-45 mmHg
Cardiac cath 04/16/2022: LM:40% distal, LAD: Distal left main into extending into ostial LAD 60 to 70%, 60 to 70% mid LAD stenosis. � The iFR in the distal LAD serially measured below the ischemic threshold 0.79, 0.83, and 0.74. LCX: LI, RCA:50% mid
RHC 04/17/2022:�Hemodynamics (mmHg):RA (m : 9; RV (s/d,m) : 31/3, 8; PA (s/d, m) : 34/14, 22; PCWP (m) : 12, with v waves up to 18; Aortic saturation: 97%; PA saturation: 64.7%; Cardiac Output : 4.6 L/min
Cardiac Index : 2.50 L/min/m-2; Systemic vascular resistance: 1349 dsc^(-5)p; Pulmonary vascular resistance: 2.19 Heath unit
Plan:
Presented 04/20/2024 with sudden onset abdominal discomfort and skin discoloration. Patient was s/p inguinal and ventral hernia repairs 04/18/2024. Found to have large right retroperitoneal/intraperitoneal hematoma as well as rectus sheath hematoma.
Now s/p Right circumflex iliac artery bleed with coil embolization by IR 04/21/2024.
Still having right sided abdominal/flank pain. Repeat CT abd/pelvis pending
Continue management per surgery
Acute anemia due to blood loss secondary to right circumflex iliac bleed. Baseline hemoglobin preop 11's. Lowest hemoglobin was 6.8 on 04/22/24. Current hemoglobin 7.6. Anticoagulation remains on hold. Transfuse if hemoglobin less than 7
-s/p 1 unit RBCs & 1 unit FFP on 04/21/24, 2 units RBCs 04/22/24, 1 unit RBC 04/23/2024
-Hemodynamically stable
History of mechanical aortic and mitral valves. Patient was bridged with heparin at time of hernia repairs. INR never returned to therapeutic range post surgery.
-Anticoagulation was held due to transfusion dependent anemia with low hemoglobin of 6.8.
-Seen by heme-onc this admission
-Heparin gtt started 04/25 with no bolus for bridging
-Plan to resume warfarin tonight
-Aspirin remains on hold
Permanent atrial fibrillation with controlled ventricular response.
-Continue digoxin for rate control.
-Continue IV Lopressor for now. Tentatively would switch to PO BB if he remains hemodynamically stable. Was on Coreg as an outpatient, but could consider Toprol XL given marginal BP.
Cardiomyopathy with EF of 35 to 40%
-Appears euvolemic on exam
-Coreg, Entresto, Aldactone, Lasix currently on hold due to hypotension in the setting of acute bleed/anemia. Would resume beta-candida if blood pressure allows.
HPI 04/24/2024:
Patient is an 83 yo M with PMH of mechanical aortic and mitral valve replacements, permanent atrial fibrillation, chronic warfarin therapy, prior strokes/TIA, multivessel coronary artery disease (deemed poor candidate for CABG by CTS), history of GI
bleeds in 2021, 06/2022 & 07/2022 with negative work-up who presented to [place] emergency department on 04/20/2024 after having recent inguinal and ventral hernia repairs 04/18/2024 with sudden onset abdominal discomfort and skin discoloration.
During his prior surgical hospitalization had a heparin bridge for his anticoagulation. He was found to have large right retroperitoneal/intraperitoneal hematoma as well as rectus sheath hematoma. He underwent vascular angiogram which revealed
site of bleeding as proximal branch of the RIGHT circumflex iliac artery which was treated with coil embolization of the vessel by IR on 04/21/2024. Due to ongoing anemia patient has received 4 units of blood. Aspirin and anticoagulation have
remained on hold. Cardiology being asked to see patient to assist in management of anticoagulation given history of mechanical aortic and mitral valve as well as permanent atrial fibrillation.
-Patient presents to the ER with progressive fatigue over the last 2 weeks, and is found to have anemia and heme positive stool. He has history of GI bleeds, most recently 06/2022 status post endoscopy/enteroscopy without overt source. At time of
06/2022 admission, his INR had been elevated at 6.0. Today INR is within normal range at 2.18.
-hold coumadin. given history of CVA and with mechanical valves, may need to consider IV heparin when INR<2 and able from bleeding standpoint
-follow hgb. receiving blood. GI evaluation
-iron studies 07/21/22 reviewed. on OP feosol
-elevated LDH noted. mech valves by echo 04/2022 without evidence of significant leak
-follow volume status in setting of IVF and PRBC administration. with crackles on exam today. check proBNP. consider for dose of IV lasix. on po lasix 40mg daily as OP. Cr stable at 1.1
-he is planned to undergo evaluation of MV CAD at [facility] 08/2022.
-consider repeat echo to reeval EF, was 25% 04/2022. continue coreg, entresto, jardiance
-in rate controlled afib. ordered dig level
-d/w patient and at bedside
Progress Note - Boat Driver
Subjective
Date of Service: April 25, 2024
NAOE. No cardiac complaints this AM. Hgb stable.
Objective
Labs:
04/25/24 07:09
04/25/24 04:53
Labs
Hgb Cancelled 04/25/24 07:09
Hct Cancelled 04/25/24 07:09
Plt Count Cancelled 04/25/24 07:09
PT 16.1 Sec (11.4-14.6) H 04/22/24 17:58
INR 1.27 04/22/24 17:58
APTT 42.7 Sec (23.4-35.0) H 04/25/24 07:31
Sodium 130 mmol/L (135-145) L 04/25/24 04:53
Potassium 4.7 mmol/L (3.5-5.1) 04/25/24 04:53
BUN 23 mg/dl (9-20) H 04/25/24 04:53
Creatinine 1.0 mg/dL (0.7-1.3) 04/25/24 04:53
Glucose 94 mg/dl (70-99) 04/25/24 04:53
Vital Signs and I&O:
Vital Signs
Temp Pulse Resp BP Pulse Ox
98.4 F 82 10 115/77 94
04/25/24 07:55 04/25/24 08:03 04/25/24 08:00 04/25/24 08:00 04/25/24 08:00
Vital Signs
Temp Pulse Resp BP Pulse Ox
98.4 F 82 10 115/77 94
04/25/24 07:55 04/25/24 08:03 04/25/24 08:00 04/25/24 08:00 04/25/24 08:00
Intake & Output
04/23/24 04/24/24 04/25/24 04/26/24
06:59 06:59 06:59 06:59
Intake Total 1230 / 1230 2650 / 2650 480 / 480
Output Total 900 / 900 1600 / 1600 950 / 950
Balance 330 / 330 1050 / 1050 -470 / -470
Physical Exam
Physical Exam
Gen: NAD, AAOx3
HEENT: NC/AT, sclera anicteric
Neck: No JVD
CV: Irregularly irregular, crisp mechanical heart sounds
Lungs: CTAB
Abd: S/ND
Ext: No LE edema
Skin: Warm, dry
Neuro: Non-focal
--- NOTE | 2024-04-25 11:49 | PTCARENOTE ---
Patient AOx3. Patient is [place]. Patient on RA. VSS. A fib with BBB on monitor. Patient complains of slight abdominal pain. Patient stated 'I don't need any pain medications, my pain is much better then yesterday. Yellow colored urine. Lap sites closed
with surgical glue and approximated. Ecchymosis throughout abdomen. Assist x1 with RW when OOB. Heparin gtt infusing per order. Call helton within reach, bed in lowest position, and bed of wheels locked.
[2024-04-25] MEDS: ROXICODONE 5 MG PO ×2 (13:29→19:59)
--- NOTE | 2024-04-25 14:13 | PTCARENOTE ---
Verbal report given to Sintia MARTINEZ on 4W. Patient transferred via stretcher with patient belongings.
[2024-04-25 15:24] LABS: APTT 56.9 Sec (23.4-35.0)
--- NOTE | 2024-04-25 16:44 | CM ---
Patient with Hx umbilical/ventral hernia repair on 04/18 with Dx acute blood Loss Anemia, post-op hematoma s/p transfusions & FFP. Room air. Receiving Heparin gtt. PT recommends HH.
Attempted to speak with patient who was sleeping. Spoke with patient's who was here visiting; she is unsure if patient will agree to VN for nurse or PT, and prefers CM ask patient when closer to discharge.
Plan follow patient's mobility and offer VN when closer to d/c.
[2024-04-25] MEDS: LIPITOR 40 MG PO (18:12)
[2024-04-25] MEDS: COUMADIN 5 MG PO (18:12)
[2024-04-25] MEDS: FLUSH (NSS) 2 FLUSH IV (18:29)
[2024-04-25] MEDS: FEOSOL 325 MG PO (21:08)
[2024-04-25 21:42] LABS: APTT 63.2 Sec (23.4-35.0)
[2024-04-25] MEDS: LOPRESSOR IV (23:10)
[2024-04-26] VITALS (7 sets, daily range): BP systolic 127–140; BP diastolic 59–96; PULSE 66; O2SAT 97; BMI 23.9
--- NOTE | 2024-04-26 02:47 | DOWNTIME ---
There was a Electronifie Client Safety Teacher Downtime on 04/26/2024 from 0100 to 04/26/2023 at 0235 . Downtime documentation of patient's care, including medication administrations, has been reconciled in the electronic record per guidelines. Refer to the
patient's paper chart under the miscellaneous tab to see printed paper medication records and downtime forms.
[2024-04-26] MEDS: HEPARIN 25000 UNITS/250 ML IV (03:42)
[2024-04-26 04:31] LABS: Hematocrit 25.9 % (39.0-52.0); Hemoglobin 8.5 g/dL (13.0-18.0); Mean Corp Hgb Conc. 32.8 g/dL (33.0-37.0); Mean Corpuscular Hgb 31.8 pg (27.0-31.0); Mean Platelet Volume 9.3 fL (7.4-10.4); Platelet Count 184 10^3/uL (130-400); Red Blood Cell Count 2.67 10^6/uL (4.70-6.10); Red Cell Dist. Width 16.4 % (11.5-14.5); White Blood Cell Count 8.1 10^3/uL (4.8-10.8)
[2024-04-26 04:53] LABS: INR 1.49; PT 18.2 Sec (11.4-14.6)
[2024-04-26 04:55] LABS: APTT 74.2 Sec (23.4-35.0)
[2024-04-26 05:02] LABS: ALT (SGPT) 17 U/L (0-50); AST (SGOT) 28 U/L (17-59); Alkaline Phosphatase 73 U/L (38-126); Blood Urea Nitrogen 23 mg/dl (9-20); Calcium 8.4 mg/dl (8.4-10.2); Carbon Dioxide 28 mmol/L (22-30); Chloride 99 mmol/L (98-107); Estimated Creatinine Clearance 59 ml/min; Glucose 119 mg/dl (70-99); Potassium 4.7 mmol/L (3.5-5.1); Sodium 131 mmol/L (135-145); Total Protein 5.5 g/dl (6.3-8.2); eGFR > 60.00
[2024-04-26] MEDS: LOPRESSOR 5 MG IV (05:04)
[2024-04-26] MEDS: SYNTHROID 37.5 MCG PO (05:04)
--- NOTE | 2024-04-26 07:17 | W.PN.GS2 ---
Today's Communication / Plan
-
`
Assessment / Plan
-
Assessment: 83-year-old male with a significant cardiac history - mechanical aortic and mitral valves on Coumadin admitted with post op left rectus sheath and right pelvic/preperitoneal bleed/hematomas d/t post op therapeutic AC on Lovenox/Coumadin
s/p robotic assisted lap repair recurrent right inguinal hernia repair with mesh as well as primary umbilical and epigastric hernia repairs.
s/p IR embolization small branch bleed off right circumflex iliac.
CT abdomen/pelvis angiogram 04/24/2024. Images personally reviewed as well as radiologist report. Left rectus sheath hematoma significantly improved. Right retroperitoneal hematoma essentially stable. No active bleeding.
AFVSS
Hemoglobin 8.3 -> 8.5 today; stable since last transfusion 04/23/2024
heparin gtt and coumadin resumed 04/25
suspect pain related to recent immobility and bleed but no signs of recurrent bleeding - closely monitor
Plan: Continue heparin drip -no bolus
repeat H&H in PM
Coumadin 5 mg p.o. qHR
Regular diet with bowel regiment - duloxax and MOM today
OOBTC and ambulate as tolerated/PT
Subjective Data
-
Date of Service: April 26, 2024
pt seen and examined
c/o central lower back pain and intermittent nausea
back pain different than with hematomas/feels more like from being in hospital bed
no new abdominal pain or right flank pains
no BM since back in hospital
Objective Data
-
Intake and Output
04/25/24 04/26/24 04/27/24
06:59 06:59 06:59
Intake Total 480 / 480 120 / 120
Output Total 950 / 950 120 / 120
Balance -470 / -470 0 / 0
Intake:
Oral fluids 480 / 480 120 / 120
IV fluids (Total) 0 / 0
IV piggybacks 0 / 0
Output:
Urine, Voided 950 / 950 120 / 120
Other:
Number of approximated LARGE 1
amounts of urine
Vital Signs
Temp Pulse Resp BP Pulse Ox
98.8 F 87 18 140/96 96
04/26/24 03:55 04/26/24 03:55 04/26/24 03:55 04/26/24 03:55 04/26/24 03:55
Lab Results
04/26/24 04:09
04/26/24 04:09
Calcium 8.4 mg/dl (8.4-10.2) 04/26/24 04:09
Total Bilirubin 2.0 mg/dl (0.2-1.3) H 04/26/24 04:09
Direct Bilirubin 0.3 mg/dl (0.0-0.4) 04/23/24 04:13
AST 28 U/L (17-59) 04/26/24 04:09
ALT 17 U/L (0-50) 04/26/24 04:09
Alkaline Phosphatase 73 U/L (38-126) 04/26/24 04:09
Total Protein 5.5 g/dl (6.3-8.2) L 04/26/24 04:09
Albumin 3.0 g/dl (3.5-5.0) L 04/26/24 04:09
Physical Exam
-
NAD AAOx3
ABD: soft, ND, mild TTP at hematoma- left rectus and right flank; no R/R/G
ecchymosis and size of palpable hematomas stable
incisions with glue, localized ecchymosis, small seroma at VHR site
[2024-04-26] MEDS: DULCOLAX 10 MG RECTAL (07:45)
[2024-04-26] MEDS: LANOXIN 125 MCG PO (07:45)
[2024-04-26] MEDS: FOLVITE 1 MG PO (07:45)
[2024-04-26] MEDS: MILK OF MAGNESIA 30 ML PO (07:45)
--- NOTE | 2024-04-26 10:25 | W.PN.CARDCBS ---
Addendum entered and electronically signed by Jeane Stevens MD 04/26/24 12:46:
I saw and examined the patient.
The Radiologic Technology Program Director's note was reviewed and I agree with the note.
Comment: Exam stable. He does have some back pain but controlled. Family is at the bedside.
As noted he had recent inguinal and ventral hernia repairs 04/18/2024. He was found to have large right retroperitoneal/intraperitoneal hematoma as well as rectus sheath hematoma. He is s/p Right circumflex iliac artery bleed with coil embolization
by IR 04/21/2024. Repeat CTAP 04/24/24 with stable appearance of RP hematoma. Hemoglobin remains stable (he is s/p transfusion).
He has both mechanical AVR and MVR.
He is on heparin and will continue. He has started usual dose of warfarin. INR 1.49 on 04/26/24 (today).
Continue IV heparin to coumadin. INR goal 2.5-3, followed by [facility] coumadin clinic. ASA remains on hold.
Watch for bleeding.
Afib chronic and stable.
Continue digoxin, check level in AM.
Transition IV lopressor to po coreg 3.125mg BID and follow.
He was on cardizem as OP, which in setting of EF 35-40% would discontinue.
Original Note:
Today's Communication / Plan
-
continue IV heparin to coumadin. follow hgb. goal INR 2.5-3
transition IV lopressor to po coreg
resume OP cardiac meds as BP allows
Impression / Plan
-
Primary Head Screen Worker: Dr. Ballesteros
Assessment:
Presentation with sudden onset abdominal discomfort and skin discoloration 04/20/2024
Recent inguinal and ventral hernia repairs 04/18/2024
large right retroperitoneal/intraperitoneal hematoma as well as rectus sheath hematoma
s/p Right circumflex iliac artery bleed s/p coil embolization by IR 04/21/2024
Acute anemia due to blood loss
s/p 1 unit RBCs & 1 unit FFP on 04/21/24, 2 units RBCs 04/22/24, 1 unit RBC 04/23/2024
Mechanical aortic valve replacement
Mechanical mitral valve replacement
Permanent atrial fibrillation
chronic warfarin therapy, managed by [facility] coumadin clinic
History of GI bleeds 2021, 06/2022, 07/2022
Chronic HFrEF
mixed ischemic/Nonischemic cardiomyopathy
Moderate-severe coronary artery disease by cardiac cath 04/2022. (Disease in distal left main and ostial LAD/mid LAD). Opted for medical management after he was deemed not to be suitable candidate for redo sternotomy/CABG by [facility].
Also seen by [facility].
LBBB
prior CVA
chronic anemia
s/p inguinal and ventral hernia repairs 04/18/2024
Echo 09/11/21: EF 45-50%, well-seated mechanical mitral valve replacement with a mean gradient of 7 mmHg. No significant regurgitation.�Well-seated mechanical aortic replacement with peak and mean gradients of 18�and 9 mmHg, respectively. Trace aortic
regurgitation. Tricuspid valve opens normally with mild tricuspid regurgitation. Estimated pulmonary artery pressure of 31 mmHg, assuming a right atrial pressure of 5 mmHg.
Echo 04/13/22: EF 25%, global hypokinesis, well-seated mechanical mitral valve prosthesis with mean gradient 4 mmHg and no MR, well-seated mechanical aortic valve prosthesis with peak/mean 11/7 mmHg and trace aortic regurgitation, sev TR with PAP 51
mmHg, Mildly dilated aortic root. SOV at 4.3 cm. Normal ascending aorta. Suboptimal suprasternal notch view, enlarged RV size with reduced RV systolic function
Echocardiogram 04/03/2024: Ejection fraction 35-40%, left ventricle mildly dilated, mechanical mitral valve with mean gradient of 7 mmHg, mechanical AVR with mean gradient of 8 mmHg, mild to moderate TR with PA systolic pressure of 40-45 mmHg
Cardiac cath 04/16/2022: LM:40% distal, LAD: Distal left main into extending into ostial LAD 60 to 70%, 60 to 70% mid LAD stenosis. � The iFR in the distal LAD serially measured below the ischemic threshold 0.79, 0.83, and 0.74. LCX: LI, RCA:50% mid
RH 04/17/2022:�Hemodynamics (mmHg):RA (m : 9; RV (s/d,m) : 31/3, 8; PA (s/d, m) : 34/14, 22; PCWP (m) : 12, with v waves up to 18; Aortic saturation: 97%; PA saturation: 64.7%; Cardiac Output : 4.6 L/min
Cardiac Index : 2.50 L/min/m-2; Systemic vascular resistance: 1349 dsc^(-5)p; Pulmonary vascular resistance: 2.19 Heath unit
Plan:
-Presented 04/20/2024 with sudden onset abdominal discomfort and skin discoloration. Patient was s/p inguinal and ventral hernia repairs 04/18/2024. Found to have large right retroperitoneal/intraperitoneal hematoma as well as rectus sheath hematoma.
Did require transfusion. Now s/p Right circumflex iliac artery bleed with coil embolization by IR 04/21/2024. Repeat CTAP 04/24 with stable appearance of RP hematoma, no evidence of active bleeding.
-patient has mechanical AVR and MVR. hgb stable at 8.5. INR 1.49 on 04/26. continue IV heparin to coumadin. INR goal as OP 2.5-3, followed by [facility] coumadin clinic. OP asa remains on hold
-remains in permanent afib with LBBB and controlled response. continue digoxin, check level in AM. will plan to transition IV lopressor to po coreg 3.125mg BID and follow. appears was on cardizem as OP, which in setting of EF 35-40% would attempt to
discontinue.
-OP entresto, aldactone, lasix currently on hold. BPs stable, will resume as able in next 24-48 hours
-d/w patient and family at bedside
HPI 04/24/2024:
Patient is an 83 yo M with PMH of mechanical aortic and mitral valve replacements, permanent atrial fibrillation, chronic warfarin therapy, prior strokes/TIA, multivessel coronary artery disease (deemed poor candidate for CABG by CTS), history of GI
bleeds in 2021, 06/2022 & 07/2022 with negative work-up who presented to [place] emergency department on 04/20/2024 after having recent inguinal and ventral hernia repairs 04/18/2024 with sudden onset abdominal discomfort and skin discoloration.
During his prior surgical hospitalization had a heparin bridge for his anticoagulation. He was found to have large right retroperitoneal/intraperitoneal hematoma as well as rectus sheath hematoma. He underwent vascular angiogram which revealed
site of bleeding as proximal branch of the RIGHT circumflex iliac artery which was treated with coil embolization of the vessel by IR on 04/21/2024. Due to ongoing anemia patient has received 4 units of blood. Aspirin and anticoagulation have
remained on hold. Cardiology being asked to see patient to assist in management of anticoagulation given history of mechanical aortic and mitral valve as well as permanent atrial fibrillation.
Progress Note - Head Screen Worker
Subjective
Date of Service: April 26, 2024
reports back discomfort. no CP, SOB.
Objective
Labs:
04/26/24 04:09
Labs
Hgb 8.5 g/dL (13.0-18.0) L 04/26/24 04:09
Hct 25.9 % (39.0-52.0) L 04/26/24 04:09
Plt Count 184 10^3/uL (130-400) 04/26/24 04:09
PT 18.2 Sec (11.4-14.6) H 04/26/24 04:09
INR 1.49 04/26/24 04:09
APTT 74.2 Sec (23.4-35.0) H 04/26/24 04:09
Sodium 131 mmol/L (135-145) L 04/26/24 04:09
Potassium 4.7 mmol/L (3.5-5.1) 04/26/24 04:09
BUN 23 mg/dl (9-20) H 04/26/24 04:09
Creatinine 0.9 mg/dL (0.7-1.3) 04/26/24 04:09
Glucose 119 mg/dl (70-99) H 04/26/24 04:09
Vital Signs and I&O:
Vital Signs
Temp Pulse Resp BP Pulse Ox
98.0 F 83 16 132/78 95
04/26/24 07:30 04/26/24 07:45 04/26/24 07:30 04/26/24 07:30 04/26/24 07:30
Vital Signs
Temp Pulse Resp BP Pulse Ox
98.0 F 83 16 132/78 95
04/26/24 07:30 04/26/24 07:45 04/26/24 07:30 04/26/24 07:30 04/26/24 07:30
Intake & Output
04/24/24 04/25/24 04/26/24 04/27/24
07:59 07:59 07:59 07:59
Intake Total 2650 / 2650 480 / 480 120 / 120
Output Total 1600 / 1600 950 / 950 120 / 120
Balance 1050 / 1050 -470 / -470 0 / 0
Physical Exam
Physical Exam
GEN: No distress, awake, alert, oriented x3
HEENT: supple, anicteric, mmm, eomi
LUNGS: CTA B/L, no wheezes/rales
CV: Irreg, S1/S2, + mech valve click
EXT: No cyanosis, clubbing, edema
NEURO: Gross non-focal
SKIN: Warm, pink, dry. No rash
[2024-04-26 10:31] LABS: APTT 102.3 Sec (23.4-35.0)
[2024-04-26] MEDS: COREG 3.125 MG PO ×2 (11:17→21:01)
--- NOTE | 2024-04-26 12:43 | W.PN.HOSP.TC ---
Today's Communication/Plan
-
f/u INR
continue heparin drip
Assessment / Plan
Assessment / Plan
Repeat CTA a/p on 04/24
1. Redemonstration of large RIGHT pelvic extraperitoneal hematoma, grossly similar size compared to the prior CT with no evidence for active bleeding/contrast extravasation.
2. Left rectus sheath hematoma also appears smaller in size and now appears completely thrombosed with no evidence for active bleeding.
3. Trace bilateral pleural effusions with some chronic right-sided pleural thickening/consolidative changes within the posterior right lower lobe. Cardiomegaly.
4. Moderate extrinsic compression of the bladder within the pelvis.
5. Additional findings above.

#Acute on chronic blood Loss Anemia
#Post-op Hematoma
#Status post umbilical/ventral hernia repair on 04/18
-Postoperative from a robotic recurrent right inguinal hernia repair with mesh as well as primary umbilical and epigastric hernia repairs
-Status post right iliac arterial branch embolization bu IR
-Status post vitamin K, FFP and 4 U PRBC
-also got IV Txa on 04/22
-Repeat CTA abdomen pelvis findings as above.
-Patient was started on heparin drip on 04/25 AM - ongoing warfarin bridging - INR 1.5 today
# Permanent A Fib /Mechanical Valves
-on Dig currently/ Diltiazem-BB on hold
-Coumadin resumed from today
#MEDARDO -resolved
�Suspect secondary to acute blood loss, hypovolemia, contrast need.
-monitor for JUANITO with multiple contrast studies this admission/hypotension. Entresto/Lasix/Aldactone remains on hold.
�US with obstruction of jets, from hematoma
�Hand removed
#Hyponatremia
� Suspect secondary to hypovolemia
� Monitor with resuscitation
#Hyperkalemia - resolved
- Suspect secondary to MEDARDO versus
# Chronic HFrEF
- Lasix/Entresto/Aldactone on hold
#Hyperbilirubinemia
-from extravascular hemolysis
#hx of CVA
-hold ASA; can cont statin
#CAD
Cont hold asa; cont bb; statin for now
DVT PPX - SCDs
Code status - full code
Anticipated Discharge: 24 - 48 hours
Subjective/Interval History
-
Date of Service: April 26, 2024
resting comfortably in bed
denies abd pain/ nausea/vomiting
Objective Data
-
Labs:
Laboratory Results
04/26/24 04/26/24 04/26/24
04:09 10:04 16:00
WBC 8.1
Hgb 8.5 L Pending
Hct 25.9 L Pending
Plt Count 184
PT 18.2 H
INR 1.49
APTT 74.2 H 102.3 H
Sodium 131 L
Potassium 4.7
Chloride 99
Carbon Dioxide 28
BUN 23 H
Creatinine 0.9
Glucose 119 H
Calcium 8.4
Total Bilirubin 2.0 H
AST 28
ALT 17
Alkaline Phosphatase 73
Vital Signs:
Vital Signs
Temp Pulse Resp BP Pulse Ox
98.6 F 94 16 128/68 99
04/26/24 11:20 04/26/24 11:20 04/26/24 11:20 04/26/24 11:20 04/26/24 11:34
I&O
04/25/24 04/26/24 04/27/24
06:59 06:59 06:59
Intake Total 480 / 480 120 / 120
Output Total 950 / 950 120 / 120
Balance -470 / -470 0 / 0
Review of Systems
-
Respiratory: Reports No Symptoms
Cardiac: Reports No Symptoms
Abdomen/GI: Reports No Symptoms
Physical Exam
-
General: No Apparent Distress and Comfortable
HEENT: Negative Oxygen
Respiratory: Clear to Auscultation
Cardiac: Regular Rhythm and S1/S2; Negative Murmur or Rub
GI: Soft, Normal Bowel Sounds and Other (Echymosis of abd wall, no dehiscence of lap site)
Musculoskeletal: No Edema
Neuro: Awake, Alert, Oriented, No Motor Deficits and Nonfocal/Grossly Intact
Psych: Calm
[2024-04-26] MEDS: ROXICODONE 5 MG PO ×2 (13:57→21:12)
[2024-04-26 16:49] LABS: Hematocrit 26.6 % (39.0-52.0); Hemoglobin 8.5 g/dL (13.0-18.0)
[2024-04-26] MEDS: LIPITOR 40 MG PO (17:01)
[2024-04-26] MEDS: COUMADIN 5 MG PO (17:01)
[2024-04-26] MEDS: ROXICODONE 10 MG PO (18:11)
[2024-04-26] MEDS: FEOSOL 325 MG PO (21:02)
[2024-04-26] MEDS: ZOFRAN 4 MG IV (21:13)
[2024-04-26 23:17] LABS: Hemoglobin 8.5 g/dL (13.0-18.0)
--- NOTE | 2024-04-26 23:25 | PTCARENOTE ---
Patient's expressing concern that patient's abdomen looks more swollen. Abdomen is firm, patient reports tenderness to palpation, and bruising noted to left lower abdomen/groin/flank area. Dr. Gu made aware, orders for stat H&H. Hemoglobin
8.5, hematocrit 25.0. Per Dr. Gu continue heparin gtt and follow CBC in AM. Plan of care ongoing.
[2024-04-27] MEDS: HEPARIN 25000 UNITS/250 ML IV ×2 (01:52→21:57)
[2024-04-27 03:19] VITALS: BP 115/60
[2024-04-27] MEDS: SYNTHROID 37.5 MCG PO (06:11)
[2024-04-27 07:48] VITALS: BP 119/58
[2024-04-27 07:51] LABS: INR 1.62; PT 19.8 Sec (11.4-14.6)
[2024-04-27 07:53] LABS: APTT 90.1 Sec (23.4-35.0)
[2024-04-27 07:55] LABS: Hematocrit 27.4 % (39.0-52.0); Mean Corp Hgb Conc. 32.8 g/dL (33.0-37.0); Mean Corpuscular Hgb 31.4 pg (27.0-31.0); Mean Corpuscular Volume 95.5 fL (80.0-94.0); Mean Platelet Volume 9.4 fL (7.4-10.4); Platelet Count 224 10^3/uL (130-400); Red Blood Cell Count 2.87 10^6/uL (4.70-6.10); Red Cell Dist. Width 16.1 % (11.5-14.5); White Blood Cell Count 7.6 10^3/uL (4.8-10.8)
[2024-04-27 08:10] LABS: Digoxin 0.4 ng/ml (0.8-2.0)
[2024-04-27] MEDS: LANOXIN 125 MCG PO (08:57)
[2024-04-27] MEDS: FOLVITE 1 MG PO (08:58)
[2024-04-27] MEDS: COREG 3.125 MG PO ×2 (08:58→20:48)
[2024-04-27] MEDS: MIRALAX 17 GRAMS PO (08:59)
--- NOTE | 2024-04-27 09:31 | CM ---
CM met with pt to complete IA. Pt status post umbilical/ventral hernia repair on 04/18; readmitted with a pelvic hematoma.
He lives with his in a 2 story home with 5 entry steps, reports being (I) amb and adls. No DME, goes to a local gym to keep 'fit'.
PT recommends VN, however pt is adamant that he will not use DME and does not need VN.
Plan: Discharge to home with no needs. CM will follow to coordinate all discharge planning needs as identified through hospitalization.
--- NOTE | 2024-04-27 10:20 | W.PN.GS2 ---
Today's Communication / Plan
-
`
Assessment / Plan
-
Assessment: 83-year-old male with a significant cardiac history - mechanical aortic and mitral valves on Coumadin admitted with post op left rectus sheath and right pelvic/preperitoneal bleed/hematomas d/t post op therapeutic AC on Lovenox/Coumadin
s/p robotic assisted lap repair recurrent right inguinal hernia repair with mesh as well as primary umbilical and epigastric hernia repairs.
s/p IR embolization small branch bleed off right circumflex iliac.
CT abdomen/pelvis angiogram 04/24/2024. Images personally reviewed as well as radiologist report. Left rectus sheath hematoma significantly improved. Right retroperitoneal hematoma essentially stable. No active bleeding.
AFVSS
Hemoglobin 8.3 -> 8.5 -> 9.0
heparin gtt and coumadin resumed 04/25
INR up to 1.6 to
suspect pain related to recent immobility and bleed but no signs of recurrent bleeding - closely monitor
Plan: Continue heparin drip -no bolus
Coumadin 5 mg p.o. qHR
Regular diet with bowel regiment -MiraLAX daily
OOBTC and ambulate as tolerated/PT
Subjective Data
-
Date of Service: April 27, 2024
Patient seen and examined.
Reports had a poor night but mainly due to feeling a bit depressed from his recent medical events and being in the hospital. He was pleased to hear that his hemoglobin is stable and even a bit higher today
Abdominal pain essentially unchanged and not any worse
Good results with bowel regimen yesterday
Tolerating diet
Objective Data
-
Intake and Output
04/26/24 04/27/24 04/28/24
06:59 06:59 06:59
Intake Total 120 / 120 150 / 150
Output Total 120 / 120 375 / 375
Balance 0 / 0 -225 / -225
Intake:
Oral fluids 120 / 120
IV fluids (Total) 0 / 0 150 / 150
IV piggybacks 0 / 0
Output:
Urine, Voided 120 / 120 375 / 375
Vital Signs
Temp Pulse Resp BP Pulse Ox
98.6 F 87 18 119/58 94
04/27/24 07:48 04/27/24 08:58 04/27/24 07:48 04/27/24 08:58 04/27/24 07:48
Lab Results
04/27/24 07:20
04/26/24 04:09
Calcium 8.4 mg/dl (8.4-10.2) 04/26/24 04:09
Total Bilirubin 2.0 mg/dl (0.2-1.3) H 04/26/24 04:09
Direct Bilirubin 0.3 mg/dl (0.0-0.4) 04/23/24 04:13
AST 28 U/L (17-59) 04/26/24 04:09
ALT 17 U/L (0-50) 04/26/24 04:09
Alkaline Phosphatase 73 U/L (38-126) 04/26/24 04:09
Total Protein 5.5 g/dl (6.3-8.2) L 04/26/24 04:09
Albumin 3.0 g/dl (3.5-5.0) L 04/26/24 04:09
Physical Exam
-
NAD AAOx3
ABD: soft, ND, mild TTP at hematoma- left rectus and right flank; no R/R/G
ecchymosis and size of palpable hematomas stable
incisions with glue, localized ecchymosis, small seroma at VHR site
[2024-04-27 11:22] VITALS: BP 130/59
--- NOTE | 2024-04-27 11:48 | W.PN.CARDCBS ---
Addendum entered and electronically signed by Jeane Stevens MD 04/27/24 16:24:
I saw and examined the patient.
The Makeup Editor's note was reviewed and I agree with the note.
Comment: Patient seen and examined. Exam remained stable. No significant volume overload on exam. Valve clicks are crisp. Normal. Decreased breath sounds at the bases.
Heart rate stable with atrial fibrillation at rest. Hemoglobin remained stable (9) with large right retroperitoneal/intraperitoneal hematoma as well as rectus sheath hematoma. Status post right circumflex iliac artery bleed and coil embolization.
Back on heparin with transition to warfarin. INR 1.62. Usual dose of warfarin 5 mg daily. Plan to give 6 mg daily today given INR has not increased. Continue to follow. Goal INR 2.5-3.0.
Original Note:
Today's Communication / Plan
-
continue IV heparin to coumadin. will give 6mg coumadin tonight
consider stopping OP asa to reduce bleeding risk
consider resuming OP entresto today as BPs stable
Impression / Plan
-
Primary Transportation Mechanic: Dr. Ballesteros
Assessment:
Presentation with sudden onset abdominal discomfort and skin discoloration 04/20/2024
Recent inguinal and ventral hernia repairs 04/18/2024
large right retroperitoneal/intraperitoneal hematoma as well as rectus sheath hematoma
s/p Right circumflex iliac artery bleed s/p coil embolization by IR 04/21/2024
Acute anemia due to blood loss
s/p 1 unit RBCs & 1 unit FFP on 04/21/24, 2 units RBCs 04/22/24, 1 unit RBC 04/23/2024
Mechanical aortic valve replacement
Mechanical mitral valve replacement
Permanent atrial fibrillation
chronic warfarin therapy, managed by [facility] coumadin clinic
History of GI bleeds 2021, 06/2022, 07/2022
Chronic HFrEF
mixed ischemic/Nonischemic cardiomyopathy
Moderate-severe coronary artery disease by cardiac cath 04/2022. (Disease in distal left main and ostial LAD/mid LAD). Opted for medical management after he was deemed not to be suitable candidate for redo sternotomy/CABG by [facility].
Also seen by [facility].
LBBB
prior CVA
chronic anemia
s/p inguinal and ventral hernia repairs 04/18/2024
Echo 09/11/21: EF 45-50%, well-seated mechanical mitral valve replacement with a mean gradient of 7 mmHg. No significant regurgitation.�Well-seated mechanical aortic replacement with peak and mean gradients of 18�and 9 mmHg, respectively. Trace aortic
regurgitation. Tricuspid valve opens normally with mild tricuspid regurgitation. Estimated pulmonary artery pressure of 31 mmHg, assuming a right atrial pressure of 5 mmHg.
Echo 04/13/22: EF 25%, global hypokinesis, well-seated mechanical mitral valve prosthesis with mean gradient 4 mmHg and no MR, well-seated mechanical aortic valve prosthesis with peak/mean 11/7 mmHg and trace aortic regurgitation, sev TR with PAP 51
mmHg, Mildly dilated aortic root. SOV at 4.3 cm. Normal ascending aorta. Suboptimal suprasternal notch view, enlarged RV size with reduced RV systolic function
Echocardiogram 04/03/2024: Ejection fraction 35-40%, left ventricle mildly dilated, mechanical mitral valve with mean gradient of 7 mmHg, mechanical AVR with mean gradient of 8 mmHg, mild to moderate TR with PA systolic pressure of 40-45 mmHg
Cardiac cath 04/16/2022: LM:40% distal, LAD: Distal left main into extending into ostial LAD 60 to 70%, 60 to 70% mid LAD stenosis. � The iFR in the distal LAD serially measured below the ischemic threshold 0.79, 0.83, and 0.74. LCX: LI, RCA:50% mid
RHC 04/17/2022:�Hemodynamics (mmHg):RA (m : 9; RV (s/d,m) : 31/3, 8; PA (s/d, m) : 34/14, 22; PCWP (m) : 12, with v waves up to 18; Aortic saturation: 97%; PA saturation: 64.7%; Cardiac Output : 4.6 L/min
Cardiac Index : 2.50 L/min/m-2; Systemic vascular resistance: 1349 dsc^(-5)p; Pulmonary vascular resistance: 2.19 Heath unit
Plan:
-Presented 04/20/2024 with sudden onset abdominal discomfort and skin discoloration. Patient was s/p inguinal and ventral hernia repairs 04/18/2024. Found to have large right retroperitoneal/intraperitoneal hematoma as well as rectus sheath hematoma.
Did require transfusion. Now s/p Right circumflex iliac artery bleed with coil embolization by IR 04/21/2024. Repeat CTAP 04/24 with stable appearance of RP hematoma, no evidence of active bleeding.
-patient with mech AVR/MVR. hgb stable at 9. INR 1.62 on 04/27. continue IV heparin to coumadin. on 5mg coumadin daily as OP. will give 6mg tonight. goal INR as OP 2.5-3, managed by [facility] coumadin clinic.
-was also on asa 81mg daily prior to admission. he has history of CAD, however no recent stents. would consider stopping to reduce bleeding risk moving forward.
-remains in permanent afib with LBBB and controlled response. continue digoxin, dig level 0.4 on 04/27. coreg resumed 04/26. appears was on cardizem as OP, will discontinue with EF 35-40%.
-OP entresto, aldactone, lasix currently on hold. as BPs stable, consider resuming entresto today.
HPI 04/24/2024:
Patient is an 83 yo M with PMH of mechanical aortic and mitral valve replacements, permanent atrial fibrillation, chronic warfarin therapy, prior strokes/TIA, multivessel coronary artery disease (deemed poor candidate for CABG by CTS), history of GI
bleeds in 2021, 06/2022 & 07/2022 with negative work-up who presented to [place] emergency department on 04/20/2024 after having recent inguinal and ventral hernia repairs 04/18/2024 with sudden onset abdominal discomfort and skin discoloration.
During his prior surgical hospitalization had a heparin bridge for his anticoagulation. He was found to have large right retroperitoneal/intraperitoneal hematoma as well as rectus sheath hematoma. He underwent vascular angiogram which revealed
site of bleeding as proximal branch of the RIGHT circumflex iliac artery which was treated with coil embolization of the vessel by IR on 04/21/2024. Due to ongoing anemia patient has received 4 units of blood. Aspirin and anticoagulation have
remained on hold. Cardiology being asked to see patient to assist in management of anticoagulation given history of mechanical aortic and mitral valve as well as permanent atrial fibrillation.
Progress Note - Transportation Mechanic
Subjective
Date of Service: April 27, 2024
reports with minimal pain this morning. main complaint is fatigue.
Objective
Labs:
04/27/24 07:20
04/26/24 04:09
Labs
Hgb 9.0 g/dL (13.0-18.0) L 04/27/24 07:20
Hct 27.4 % (39.0-52.0) L 04/27/24 07:20
Plt Count 224 10^3/uL (130-400) D 04/27/24 07:20
PT 19.8 Sec (11.4-14.6) H 04/27/24 07:20
INR 1.62 04/27/24 07:20
APTT 90.1 Sec (23.4-35.0) H 04/27/24 07:20
Sodium 131 mmol/L (135-145) L 04/26/24 04:09
Potassium 4.7 mmol/L (3.5-5.1) 04/26/24 04:09
BUN 23 mg/dl (9-20) H 04/26/24 04:09
Creatinine 0.9 mg/dL (0.7-1.3) 04/26/24 04:09
Glucose 119 mg/dl (70-99) H 04/26/24 04:09
Digoxin 0.4 ng/ml (0.8-2.0) L 04/27/24 07:20
Vital Signs and I&O:
Vital Signs
Temp Pulse Resp BP Pulse Ox
97.6 F 76 18 130/59 98
04/27/24 11:22 04/27/24 11:22 04/27/24 11:22 04/27/24 11:22 04/27/24 11:35
Vital Signs
Temp Pulse Resp BP Pulse Ox
97.6 F 76 18 130/59 98
04/27/24 11:22 04/27/24 11:22 04/27/24 11:22 04/27/24 11:22 04/27/24 11:35
Intake & Output
04/25/24 04/26/24 04/27/24 04/28/24
07:59 07:59 07:59 07:59
Intake Total 480 / 480 120 / 120 150 / 150
Output Total 950 / 950 120 / 120 375 / 375
Balance -470 / -470 0 / 0 -225 / -225
Physical Exam
Physical Exam
GEN: No distress, awake, alert, oriented x3
HEENT: supple, anicteric, mmm, eomi
LUNGS: CTA B/L, no wheezes/rales
CV: Irreg, S1/S2, + mech valve click
EXT: No cyanosis, clubbing, edema
NEURO: Gross non-focal
SKIN: Warm, pink, dry. No rash
[2024-04-27 11:52] VITALS: BMI 24.1
--- NOTE | 2024-04-27 13:18 | W.PN.HOSP.TC ---
Today's Communication/Plan
-
continue warfarin bridge
f/u inr and hbg
Assessment / Plan
Assessment / Plan
Repeat CTA a/p on 04/24
1. Redemonstration of large RIGHT pelvic extraperitoneal hematoma, grossly similar size compared to the prior CT with no evidence for active bleeding/contrast extravasation.
2. Left rectus sheath hematoma also appears smaller in size and now appears completely thrombosed with no evidence for active bleeding.
3. Trace bilateral pleural effusions with some chronic right-sided pleural thickening/consolidative changes within the posterior right lower lobe. Cardiomegaly.
4. Moderate extrinsic compression of the bladder within the pelvis.
5. Additional findings above.

#Acute on chronic blood Loss Anemia
#Post-op Hematoma
#Status post umbilical/ventral hernia repair on 04/18
-Postoperative from a robotic recurrent right inguinal hernia repair with mesh as well as primary umbilical and epigastric hernia repairs
-Status post right iliac arterial branch embolization bu IR
-Status post vitamin K, FFP and 4 U PRBC
-also got IV Txa on 04/22
-Repeat CTA abdomen pelvis findings as above.
-Patient was started on heparin drip on 04/25 AM - ongoing warfarin bridging - INR 1.6 today
# Permanent A Fib /Mechanical Valves
-on Dig currently/ Diltiazem-BB on hold
-Dig level on lower side of 0.4
-Coumadin resumed from today
#MEDARDO -resolved
�Suspect secondary to acute blood loss, hypovolemia, contrast need.
-monitor for JUANITO with multiple contrast studies this admission/hypotension. Entresto/Lasix/Aldactone remains on hold.
�US with obstruction of jets, from hematoma
�Hand removed
#Hyponatremia
� Suspect secondary to hypovolemia
� Monitor with resuscitation
#Hyperkalemia - resolved
- Suspect secondary to MEDARDO versus
# Chronic HFrEF
- Lasix/Entresto/Aldactone on hold
#Hyperbilirubinemia
-from extravascular hemolysis
#hx of CVA
-hold ASA; can cont statin
#CAD
Cont hold asa; cont bb; statin for now
DVT PPX - SCDs
Code status - full code
Anticipated Discharge: 24 - 48 hours
Subjective/Interval History
-
Date of Service: April 27, 2024
Denies of having any excessive abdominal pain/nausea/vomiting
No new issues reported
Objective Data
-
Labs:
Laboratory Results
04/27/24
07:20
WBC 7.6
Hgb 9.0 L
Hct 27.4 L
Plt Count 224 D
PT 19.8 H
INR 1.62
APTT 90.1 H
Vital Signs:
Vital Signs
Temp Pulse Resp BP Pulse Ox
97.6 F 76 18 130/59 98
04/27/24 11:22 04/27/24 11:22 04/27/24 11:22 04/27/24 11:22 04/27/24 11:35
I&O
04/26/24 04/27/24 04/28/24
06:59 06:59 06:59
Intake Total 120 / 120 150 / 150
Output Total 120 / 120 375 / 375
Balance 0 / 0 -225 / -225
Review of Systems
-
Respiratory: Reports No Symptoms
Cardiac: Reports No Symptoms
Abdomen/GI: Denies Abdominal Pain, Nausea or Vomiting
Physical Exam
-
General: No Apparent Distress and Comfortable
HEENT: Negative Oxygen
Respiratory: Clear to Auscultation
Cardiac: Regular Rhythm and S1/S2; Negative Murmur or Rub
GI: Soft, Normal Bowel Sounds and Other (Echymosis of abd wall, no dehiscence of lap site)
Musculoskeletal: No Edema
Neuro: Awake, Alert, Oriented, No Motor Deficits and Nonfocal/Grossly Intact
Psych: Calm
[2024-04-27 15:11] VITALS: BP 150/65
[2024-04-27] MEDS: COUMADIN 5 MG PO (17:55)
[2024-04-27] MEDS: COUMADIN 1 MG PO (17:58)
[2024-04-27] MEDS: LIPITOR 40 MG PO (17:59)
[2024-04-27 19:10] VITALS: BP 119/67
[2024-04-27] MEDS: FEOSOL 325 MG PO (20:47)
[2024-04-27] MEDS: ENTRESTO 24 MG/26 MG 1 TAB PO (20:48)
[2024-04-27] MEDS: ROXICODONE 5 MG PO (22:02)
[2024-04-27 23:52] VITALS: BP 127/48
[2024-04-28] VITALS (7 sets, daily range): BP systolic 111–133; BP diastolic 53–68; PULSE 85; O2SAT 98; BMI 24.0
[2024-04-28] MEDS: SYNTHROID 37.5 MCG PO (05:33)
[2024-04-28 07:55] LABS: INR 1.91
[2024-04-28] MEDS: ENTRESTO 24 MG/26 MG 1 TAB PO ×2 (08:48→19:57)
[2024-04-28] MEDS: FOLVITE 1 MG PO (08:48)
[2024-04-28] MEDS: LANOXIN 125 MCG PO (08:48)
[2024-04-28] MEDS: MIRALAX 17 GRAMS PO (08:48)
[2024-04-28] MEDS: COREG 3.125 MG PO ×2 (08:49→19:58)
[2024-04-28 08:57] LABS: APTT 112.6 Sec (23.4-35.0)
--- NOTE | 2024-04-28 11:47 | W.PN.GS2 ---
Today's Communication / Plan
-
s/o
Assessment / Plan
-
Assessment: 83-year-old male with a significant cardiac history - mechanical aortic and mitral valves on Coumadin admitted with post op left rectus sheath and right pelvic/preperitoneal bleed/hematomas d/t post op therapeutic AC on Lovenox/Coumadin
s/p robotic assisted lap repair recurrent right inguinal hernia repair with mesh as well as primary umbilical and epigastric hernia repairs.
s/p IR embolization small branch bleed off right circumflex iliac.
CT abdomen/pelvis angiogram 04/24/2024. Images personally reviewed as well as radiologist report. Left rectus sheath hematoma significantly improved. Right retroperitoneal hematoma essentially stable. No active bleeding.
AFVSS
Hemoglobin 8.3 -> 8.5 -> 9.0
heparin gtt and coumadin resumed 04/25
INR up to 1.9
suspect pain related to recent immobility and bleed but no signs of recurrent bleeding
Plan: Continue heparin drip for bridge
Coumadin 5 mg p.o. qHR
Regular diet with bowel regiment -MiraLAX daily
OOBTC and ambulate as tolerated/PT
Pls call with ?s
Subjective Data
-
Date of Service: April 28, 2024
Improving, no complaints, ambulating, ludwig PO
Objective Data
-
Intake and Output
04/27/24 04/28/24 04/29/24
06:59 06:59 06:59
Intake Total 150 / 150 1506 / 1506
Output Total 375 / 375 580 / 580
Balance -225 / -225 926 / 926
Intake:
Oral fluids 1320 / 1320
IV fluids (Total) 150 / 150 186 / 186
Output:
Urine, Voided 375 / 375 580 / 580
Other:
Number of approximated MODERATE 5
amounts of urine
Vital Signs
Temp Pulse Resp BP Pulse Ox
98.0 F 76 18 122/61 98
04/28/24 11:10 04/28/24 11:10 04/28/24 11:10 04/28/24 11:10 04/28/24 11:10
Lab Results
04/27/24 07:20
04/26/24 04:09
Calcium 8.4 mg/dl (8.4-10.2) 04/26/24 04:09
Total Bilirubin 2.0 mg/dl (0.2-1.3) H 04/26/24 04:09
Direct Bilirubin 0.3 mg/dl (0.0-0.4) 04/23/24 04:13
AST 28 U/L (17-59) 04/26/24 04:09
ALT 17 U/L (0-50) 04/26/24 04:09
Alkaline Phosphatase 73 U/L (38-126) 04/26/24 04:09
Total Protein 5.5 g/dl (6.3-8.2) L 04/26/24 04:09
Albumin 3.0 g/dl (3.5-5.0) L 04/26/24 04:09
Physical Exam
-
Gen: NAD
Abd: soft, mild ttp about incisions, ecchymosis noted, unchanged
Patient has a ceballos catheter: No
Patient has a central line: No
[2024-04-28] MEDS: DULCOLAX 10 MG PO (12:30)
--- NOTE | 2024-04-28 13:17 | W.PN.CARDCBS ---
Addendum entered and electronically signed by Memo Graves DO 04/28/24 18:51:
I saw and examined the patient.
The Materials Branch Chief's note was reviewed and I agree with the note.
Comment:
Patient resting comfortably in chair. Denies chest pain, shortness of breath, palpitations, or weakness.
GEN: No distress, awake, alert, oriented x3
HEENT: supple, anicteric, mmm, eomi
LUNGS: CTA B/L, no wheezes/rales
CV: Irreg, S1/S2, + mech valve click
EXT: No cyanosis, clubbing, edema
NEURO: Gross non-focal
SKIN: Warm, pink, dry. No rash
Telemetry AF
Repeat INR 1.91
Continue IV heparin and bridge Coumadin goal 2.5�3 INR
Oral Lasix starting in a.m.
Monitor on telemetry
Remains on goal-directed medical therapy of beta-candida, Entresto; additionally on digoxin, plan for resuming Lasix in AM. Aldactone skylar on hold for now.
Repeat lab work in a.m.
Original Note:
Today's Communication / Plan
-
continue IV heparin to coumadin. goal INR 2.5-3
resume po lasix 40mg daily in AM
Impression / Plan
-
Primary Drill Doctor: Dr. Ballesteros
Assessment:
Presentation with sudden onset abdominal discomfort and skin discoloration 04/20/2024
Recent inguinal and ventral hernia repairs 04/18/2024
large right retroperitoneal/intraperitoneal hematoma as well as rectus sheath hematoma
s/p Right circumflex iliac artery bleed s/p coil embolization by IR 04/21/2024
Acute anemia due to blood loss
s/p 1 unit RBCs & 1 unit FFP on 04/21/24, 2 units RBCs 04/22/24, 1 unit RBC 04/23/2024
Mechanical aortic valve replacement
Mechanical mitral valve replacement
Permanent atrial fibrillation
chronic warfarin therapy, managed by [facility] coumadin clinic
History of GI bleeds 2021, 06/2022, 07/2022
Chronic HFrEF
mixed ischemic/Nonischemic cardiomyopathy
Moderate-severe coronary artery disease by cardiac cath 04/2022. (Disease in distal left main and ostial LAD/mid LAD). Opted for medical management after he was deemed not to be suitable candidate for redo sternotomy/CABG by [facility].
Also seen by [facility].
LBBB
prior CVA
chronic anemia
s/p inguinal and ventral hernia repairs 04/18/2024
Echo 09/11/21: EF 45-50%, well-seated mechanical mitral valve replacement with a mean gradient of 7 mmHg. No significant regurgitation.�Well-seated mechanical aortic replacement with peak and mean gradients of 18�and 9 mmHg, respectively. Trace aortic
regurgitation. Tricuspid valve opens normally with mild tricuspid regurgitation. Estimated pulmonary artery pressure of 31 mmHg, assuming a right atrial pressure of 5 mmHg.
Echo 04/13/22: EF 25%, global hypokinesis, well-seated mechanical mitral valve prosthesis with mean gradient 4 mmHg and no MR, well-seated mechanical aortic valve prosthesis with peak/mean 11/7 mmHg and trace aortic regurgitation, sev TR with PAP 51
mmHg, Mildly dilated aortic root. SOV at 4.3 cm. Normal ascending aorta. Suboptimal suprasternal notch view, enlarged RV size with reduced RV systolic function
Echocardiogram 04/03/2024: Ejection fraction 35-40%, left ventricle mildly dilated, mechanical mitral valve with mean gradient of 7 mmHg, mechanical AVR with mean gradient of 8 mmHg, mild to moderate TR with PA systolic pressure of 40-45 mmHg
Cardiac cath 04/16/2022: LM:40% distal, LAD: Distal left main into extending into ostial LAD 60 to 70%, 60 to 70% mid LAD stenosis. � The iFR in the distal LAD serially measured below the ischemic threshold 0.79, 0.83, and 0.74. LCX: LI, RCA:50% mid
RHC 04/17/2022:�Hemodynamics (mmHg):RA (m : 9; RV (s/d,m) : 31/3, 8; PA (s/d, m) : 34/14, 22; PCWP (m) : 12, with v waves up to 18; Aortic saturation: 97%; PA saturation: 64.7%; Cardiac Output : 4.6 L/min
Cardiac Index : 2.50 L/min/m-2; Systemic vascular resistance: 1349 dsc^(-5)p; Pulmonary vascular resistance: 2.19 Heath unit
Plan:
-Presented 04/20/2024 with sudden onset abdominal discomfort and skin discoloration. Patient was s/p inguinal and ventral hernia repairs 04/18/2024. Found to have large right retroperitoneal/intraperitoneal hematoma as well as rectus sheath hematoma.
Did require transfusion. Now s/p Right circumflex iliac artery bleed with coil embolization by IR 04/21/2024. Repeat CTAP 04/24 with stable appearance of RP hematoma, no evidence of active bleeding.
-patient with mech AVR/MVR. hgb 9. INR 1.91 on 04/28. continue IV heparin to coumadin. on 5mg coumadin daily as OP. will give 6mg again tonight. goal INR as OP 2.5-3, managed by [facility] coumadin clinic.
-was also on asa 81mg daily prior to admission. he has history of CAD, however no recent stents. would consider stopping to reduce bleeding risk moving forward.
-remains in permanent afib with LBBB and controlled response. continue digoxin, dig level 0.4 on 04/27. coreg resumed 04/26. appears was on cardizem as OP, will discontinue with EF 35-40%.
-BPs stable on OP entresto. will resume lasix in AM as weight uptrending. OP spironolactone remains on hold.
HPI 04/24/2024:
Patient is an 83 yo M with PMH of mechanical aortic and mitral valve replacements, permanent atrial fibrillation, chronic warfarin therapy, prior strokes/TIA, multivessel coronary artery disease (deemed poor candidate for CABG by CTS), history of GI
bleeds in 2021, 06/2022 & 07/2022 with negative work-up who presented to [place] emergency department on 04/20/2024 after having recent inguinal and ventral hernia repairs 04/18/2024 with sudden onset abdominal discomfort and skin discoloration.
During his prior surgical hospitalization had a heparin bridge for his anticoagulation. He was found to have large right retroperitoneal/intraperitoneal hematoma as well as rectus sheath hematoma. He underwent vascular angiogram which revealed
site of bleeding as proximal branch of the RIGHT circumflex iliac artery which was treated with coil embolization of the vessel by IR on 04/21/2024. Due to ongoing anemia patient has received 4 units of blood. Aspirin and anticoagulation have
remained on hold. Cardiology being asked to see patient to assist in management of anticoagulation given history of mechanical aortic and mitral valve as well as permanent atrial fibrillation.
Progress Note - Drill Doctor
Subjective
Date of Service: April 28, 2024
reports abd discomfort decreasing. no CP, SOB.
Objective
Labs:
04/27/24 07:20
04/26/24 04:09
Labs
Hgb 9.0 g/dL (13.0-18.0) L 04/27/24 07:20
Hct 27.4 % (39.0-52.0) L 04/27/24 07:20
Plt Count 224 10^3/uL (130-400) D 04/27/24 07:20
PT 22.0 Sec (11.4-14.6) H 04/28/24 07:07
INR 1.91 04/28/24 07:07
APTT Cancelled 04/28/24 08:46
Sodium 131 mmol/L (135-145) L 04/26/24 04:09
Potassium 4.7 mmol/L (3.5-5.1) 04/26/24 04:09
BUN 23 mg/dl (9-20) H 04/26/24 04:09
Creatinine 0.9 mg/dL (0.7-1.3) 04/26/24 04:09
Glucose 119 mg/dl (70-99) H 04/26/24 04:09
Digoxin 0.4 ng/ml (0.8-2.0) L 04/27/24 07:20
Vital Signs and I&O:
Vital Signs
Temp Pulse Resp BP Pulse Ox
98.0 F 76 18 122/61 98
04/28/24 11:10 04/28/24 11:10 04/28/24 11:10 04/28/24 11:10 04/28/24 11:10
Vital Signs
Temp Pulse Resp BP Pulse Ox
98.0 F 76 18 122/61 98
04/28/24 11:10 04/28/24 11:10 04/28/24 11:10 04/28/24 11:10 04/28/24 11:10
Intake & Output
04/26/24 04/27/24 04/28/24 04/29/24
07:59 07:59 07:59 07:59
Intake Total 120 / 120 150 / 150 1506 / 1506 180 / 180
Output Total 120 / 120 375 / 375 580 / 580
Balance 0 / 0 -225 / -225 926 / 926 180 / 180
Physical Exam
Physical Exam
GEN: No distress, awake, alert, oriented x3
HEENT: supple, anicteric, mmm, eomi
LUNGS: CTA B/L, no wheezes/rales
CV: Irreg, S1/S2, + mech valve click
EXT: No cyanosis, clubbing, edema
NEURO: Gross non-focal
SKIN: Warm, pink, dry. No rash
--- NOTE | 2024-04-28 14:02 | W.PN.HOSP.TC ---
Today's Communication/Plan
-
continue warfarin bridge
f/u inr/hbg tomorrow
laxative ordered
Assessment / Plan
Assessment / Plan
Repeat CTA a/p on 04/24
1. Redemonstration of large RIGHT pelvic extraperitoneal hematoma, grossly similar size compared to the prior CT with no evidence for active bleeding/contrast extravasation.
2. Left rectus sheath hematoma also appears smaller in size and now appears completely thrombosed with no evidence for active bleeding.
3. Trace bilateral pleural effusions with some chronic right-sided pleural thickening/consolidative changes within the posterior right lower lobe. Cardiomegaly.
4. Moderate extrinsic compression of the bladder within the pelvis.
5. Additional findings above.

#Acute on chronic blood Loss Anemia
#Post-op Hematoma
#Status post umbilical/ventral hernia repair on 04/18
-Postoperative from a robotic recurrent right inguinal hernia repair with mesh as well as primary umbilical and epigastric hernia repairs
-Status post right iliac arterial branch embolization bu IR
-Status post vitamin K, FFP and 4 U PRBC
-also got IV Txa on 04/22
-Repeat CTA abdomen pelvis findings as above.
-Patient was started on heparin drip on 04/25 AM - ongoing warfarin bridging - INR 1.9 today - repeat warfarin 6mg ordered
# Permanent A Fib /Mechanical Valves
-on Dig currently/ Diltiazem-BB on hold
-Dig level on lower side of 0.4
-Coumadin resumed from today
#MEDARDO -resolved
�Suspect secondary to acute blood loss, hypovolemia, contrast need.
-monitor for JUANITO with multiple contrast studies this admission/hypotension. Entresto/Lasix/Aldactone remains on hold.
�US with obstruction of jets, from hematoma
�Hand removed
#Hyponatremia
� Suspect secondary to hypovolemia
� Monitor with resuscitation
#Hyperkalemia - resolved
- Suspect secondary to MDEARDO versus
# Chronic HFrEF
- Lasix/Entresto/Aldactone on hold
#Hyperbilirubinemia
-from extravascular hemolysis
#hx of CVA
-hold ASA; can cont statin
#CAD
Cont hold asa; cont bb; statin for now
DVT PPX - SCDs
Code status - full code
Anticipated Discharge: 24 - 48 hours
Subjective/Interval History
-
Date of Service: April 28, 2024
resting comfortably in chair
no complains overnight
Objective Data
-
Labs:
Laboratory Results
04/28/24 04/28/24 04/28/24
07:07 08:46 16:00
PT 22.0 H
INR 1.91
APTT 112.6 H Cancelled Pending
Vital Signs:
Vital Signs
Temp Pulse Resp BP Pulse Ox
98.0 F 76 18 122/61 98
04/28/24 11:10 04/28/24 11:10 04/28/24 11:10 04/28/24 11:10 04/28/24 11:10
I&O
04/27/24 04/28/24 04/29/24
06:59 06:59 06:59
Intake Total 150 / 150 1506 / 1506 180 / 180
Output Total 375 / 375 580 / 580
Balance -225 / -225 926 / 926 180 / 180
Review of Systems
-
Respiratory: Reports No Symptoms
Cardiac: Reports No Symptoms
Abdomen/GI: Reports No Symptoms
Physical Exam
-
General: No Apparent Distress and Comfortable
HEENT: Negative Oxygen
Respiratory: Clear to Auscultation
Cardiac: Regular Rhythm and S1/S2; Negative Murmur or Rub
GI: Soft, Normal Bowel Sounds and Other (Echymosis of abd wall, no dehiscence of lap site)
Musculoskeletal: No Edema
Neuro: Awake, Alert, Oriented, No Motor Deficits and Nonfocal/Grossly Intact
Psych: Calm
[2024-04-28 16:28] LABS: APTT 116.4 Sec (23.4-35.0)
[2024-04-28] MEDS: COUMADIN 5 MG PO (17:37)
[2024-04-28] MEDS: LIPITOR 40 MG PO (17:37)
[2024-04-28] MEDS: COUMADIN 1 MG PO (17:38)
[2024-04-28] MEDS: HEPARIN 25000 UNITS/250 ML IV (19:51)
[2024-04-28] MEDS: FEOSOL 325 MG PO (19:56)
[2024-04-28] MEDS: TYLENOL 650 MG PO (19:57)
[2024-04-28 23:24] LABS: APTT 106.8 Sec (23.4-35.0)
[2024-04-29 03:46] VITALS: BP 115/56
[2024-04-29] MEDS: SYNTHROID 37.5 MCG PO (05:07)
[2024-04-29 06:00] VITALS: BMI 23.9
[2024-04-29 07:16] LABS: Hematocrit 26.7 % (39.0-52.0); Hemoglobin 8.5 g/dL (13.0-18.0); Mean Corp Hgb Conc. 31.8 g/dL (33.0-37.0); Mean Corpuscular Hgb 30.9 pg (27.0-31.0); Mean Corpuscular Volume 97.1 fL (80.0-94.0); Mean Platelet Volume 9.2 fL (7.4-10.4); Platelet Count 257 10^3/uL (130-400); Red Blood Cell Count 2.75 10^6/uL (4.70-6.10); Red Cell Dist. Width 16.1 % (11.5-14.5); White Blood Cell Count 6.2 10^3/uL (4.8-10.8)
[2024-04-29 07:24] LABS: INR 2.08; PT 23.5 Sec (11.4-14.6)
[2024-04-29 07:26] LABS: APTT 104.9 Sec (23.4-35.0)
[2024-04-29 07:35] VITALS: BP 129/65
[2024-04-29 07:46] LABS: Blood Urea Nitrogen 26 mg/dl (9-20); Calcium 8.3 mg/dl (8.4-10.2); Carbon Dioxide 30 mmol/L (22-30); Chloride 100 mmol/L (98-107); Estimated Creatinine Clearance 53 ml/min; Glucose 88 mg/dl (70-99); Potassium 4.5 mmol/L (3.5-5.1); Sodium 133 mmol/L (135-145); eGFR > 60.00
[2024-04-29] MEDS: ENTRESTO 24 MG/26 MG 1 TAB PO ×2 (08:24→20:02)
[2024-04-29] MEDS: MIRALAX PO ×2 (08:28→08:37)
[2024-04-29] MEDS: FOLVITE 1 MG PO (08:28)
[2024-04-29] MEDS: LANOXIN 125 MCG PO (08:28)
[2024-04-29] MEDS: COREG 3.125 MG PO ×2 (08:28→20:03)
[2024-04-29] MEDS: TYLENOL 650 MG PO (08:40)
[2024-04-29 11:05] VITALS: BP 103/58
--- NOTE | 2024-04-29 14:34 | W.PN.HOSP.TC ---
Today's Communication/Plan
-
f/u INR
warfarin 6.5mg
starting lower dose lasix
Assessment / Plan
Assessment / Plan
Repeat CTA a/p on 04/24
1. Redemonstration of large RIGHT pelvic extraperitoneal hematoma, grossly similar size compared to the prior CT with no evidence for active bleeding/contrast extravasation.
2. Left rectus sheath hematoma also appears smaller in size and now appears completely thrombosed with no evidence for active bleeding.
3. Trace bilateral pleural effusions with some chronic right-sided pleural thickening/consolidative changes within the posterior right lower lobe. Cardiomegaly.
4. Moderate extrinsic compression of the bladder within the pelvis.
5. Additional findings above.

#Acute on chronic blood Loss Anemia
#Post-op Hematoma
#Status post umbilical/ventral hernia repair on 04/18
-Postoperative from a robotic recurrent right inguinal hernia repair with mesh as well as primary umbilical and epigastric hernia repairs
-Status post right iliac arterial branch embolization bu IR
-Status post vitamin K, FFP and 4 U PRBC
-also got IV Txa on 04/22
-Repeat CTA abdomen pelvis findings as above.
-Patient was started on heparin drip on 04/25 AM - ongoing warfarin bridging - INR 1.9 > 2.08 today - warfarin 6.5 mg ordered for today.
# Permanent A Fib /Mechanical Valves
-on Dig currently/ Diltiazem-BB on hold
-Dig level on lower side of 0.4
-Coumadin resumed from today
#MEDARDO -resolved
�Suspect secondary to acute blood loss, hypovolemia, contrast need.
-monitor for JUANITO with multiple contrast studies this admission/hypotension. Entresto/Lasix/Aldactone remains on hold.
�US with obstruction of jets, from hematoma
�Hand removed
#Right groin hematoma
-at IR access site and very small on exam. CT a/p images reviewed
-monitor
#Hyponatremia
� Suspect secondary to hypovolemia
� Monitor with resuscitation
#Hyperkalemia - resolved
- Suspect secondary to MEDARDO versus
# Chronic HFrEF
- Entresto resumed
- weight stable without lasix, although some leg swelling- starting on 20mg q48h (was on 40/d at home)
#Hyperbilirubinemia
-from extravascular hemolysis
#hx of CVA
-hold ASA; can cont statin
#CAD
Cont hold asa; cont bb; statin for now
DVT PPX - SCDs
Code status - full code
Anticipated Discharge: 24 - 48 hours
Subjective/Interval History
-
Date of Service: April 29, 2024
no complains overnight
Objective Data
-
Labs:
Laboratory Results
04/29/24
06:29
WBC 6.2
Hgb 8.5 L
Hct 26.7 L
Plt Count 257
PT 23.5 H
INR 2.08
APTT 104.9 H
Sodium 133 L
Potassium 4.5
Chloride 100
Carbon Dioxide 30
BUN 26 H
Creatinine 1.0
Glucose 88
Calcium 8.3 L
Vital Signs:
Vital Signs
Temp Pulse Resp BP Pulse Ox
97.5 F 80 16 103/58 99
04/29/24 11:05 04/29/24 11:05 04/29/24 11:05 04/29/24 11:05 04/29/24 11:05
I&O
04/28/24 04/29/24 04/30/24
06:59 06:59 06:59
Intake Total 1506 / 1506 780 / 780
Output Total 580 / 580 1100 / 1100
Balance 926 / 926 -320 / -320
Review of Systems
-
Respiratory: Reports No Symptoms
Cardiac: Reports No Symptoms
Abdomen/GI: Reports No Symptoms
Physical Exam
-
General: No Apparent Distress and Comfortable
HEENT: Negative Oxygen
Respiratory: Clear to Auscultation
Cardiac: Regular Rhythm and S1/S2; Negative Murmur or Rub
GI: Soft, Normal Bowel Sounds and Other (Echymosis of abd wall, no dehiscence of lap site)
Musculoskeletal: No Edema
Neuro: Awake, Alert, Oriented, No Motor Deficits and Nonfocal/Grossly Intact
Psych: Calm
[2024-04-29] MEDS: LASIX 20 MG PO (15:21)
[2024-04-29] MEDS: ROXICODONE 5 MG PO ×2 (15:26→20:05)
[2024-04-29 15:31] VITALS: BP 129/66
--- NOTE | 2024-04-29 15:49 | W.PN.CARDCBS ---
Today's Communication / Plan
-
Continue heparin, Coumadin bridge
Monitor on telemetry
Monitor hemoglobin
Impression / Plan
-
Primary Record Tabulating Clerk: Dr. Ballesteros
Assessment:
Presentation with sudden onset abdominal discomfort and skin discoloration 04/20/2024
Recent inguinal and ventral hernia repairs 04/18/2024
large right retroperitoneal/intraperitoneal hematoma as well as rectus sheath hematoma
s/p Right circumflex iliac artery bleed s/p coil embolization by IR 04/21/2024
Acute anemia due to blood loss
s/p 1 unit RBCs & 1 unit FFP on 04/21/24, 2 units RBCs 04/22/24, 1 unit RBC 04/23/2024
Mechanical aortic valve replacement
Mechanical mitral valve replacement
Permanent atrial fibrillation
chronic warfarin therapy, managed by [facility] coumadin clinic
History of GI bleeds 2021, 06/2022, 07/2022
Chronic HFrEF
mixed ischemic/Nonischemic cardiomyopathy
Moderate-severe coronary artery disease by cardiac cath 04/2022. (Disease in distal left main and ostial LAD/mid LAD). Opted for medical management after he was deemed not to be suitable candidate for redo sternotomy/CABG by [facility].
Also seen by [facility].
LBBB
prior CVA
chronic anemia
s/p inguinal and ventral hernia repairs 04/18/2024
Echo 09/11/21: EF 45-50%, well-seated mechanical mitral valve replacement with a mean gradient of 7 mmHg. No significant regurgitation.�Well-seated mechanical aortic replacement with peak and mean gradients of 18�and 9 mmHg, respectively. Trace aortic
regurgitation. Tricuspid valve opens normally with mild tricuspid regurgitation. Estimated pulmonary artery pressure of 31 mmHg, assuming a right atrial pressure of 5 mmHg.
Echo 04/13/22: EF 25%, global hypokinesis, well-seated mechanical mitral valve prosthesis with mean gradient 4 mmHg and no MR, well-seated mechanical aortic valve prosthesis with peak/mean 11/7 mmHg and trace aortic regurgitation, sev TR with PAP 51
mmHg, Mildly dilated aortic root. SOV at 4.3 cm. Normal ascending aorta. Suboptimal suprasternal notch view, enlarged RV size with reduced RV systolic function
Echocardiogram 04/03/2024: Ejection fraction 35-40%, left ventricle mildly dilated, mechanical mitral valve with mean gradient of 7 mmHg, mechanical AVR with mean gradient of 8 mmHg, mild to moderate TR with PA systolic pressure of 40-45 mmHg
Cardiac cath 04/16/2022: LM:40% distal, LAD: Distal left main into extending into ostial LAD 60 to 70%, 60 to 70% mid LAD stenosis. � The iFR in the distal LAD serially measured below the ischemic threshold 0.79, 0.83, and 0.74. LCX: LI, RCA:50% mid
RHC 04/17/2022:�Hemodynamics (mmHg):RA (m : 9; RV (s/d,m) : 31/3, 8; PA (s/d, m) : 34/14, 22; PCWP (m) : 12, with v waves up to 18; Aortic saturation: 97%; PA saturation: 64.7%; Cardiac Output : 4.6 L/min
Cardiac Index : 2.50 L/min/m-2; Systemic vascular resistance: 1349 dsc^(-5)p; Pulmonary vascular resistance: 2.19 Heath unit
Plan:
-Presented 04/20/2024 with sudden onset abdominal discomfort and skin discoloration. Patient was s/p inguinal and ventral hernia repairs 04/18/2024. Found to have large right retroperitoneal/intraperitoneal hematoma as well as rectus sheath hematoma.
Did require transfusion. Now s/p Right circumflex iliac artery bleed with coil embolization by IR 04/21/2024. Repeat CTAP 04/24 with stable appearance of RP hematoma, no evidence of active bleeding.
[facility] h[facility] 9. INR 1.91 on 04/28, 2.08 04/29. continue IV heparin to coumadin. on 5mg coumadin daily as OP. goal INR as OP 2.5-3, managed by [facility] coumadin clinic.
-was also on asa 81mg daily prior to admission. he has history of CAD, however no recent stents. would consider stopping to reduce bleeding risk moving forward.
-remains in permanent afib with LBBB and controlled response. continue digoxin, dig level 0.4 on 04/27. coreg resumed 04/26. appears was on cardizem as OP, will discontinue with EF 35-40%.
-BPs stable on OP entresto. lasix resumed. OP spironolactone remains on hold.
HPI 04/24/2024:
Patient is an 83 yo M with PMH of mechanical aortic and mitral valve replacements, permanent atrial fibrillation, chronic warfarin therapy, prior strokes/TIA, multivessel coronary artery disease (deemed poor candidate for CABG by [facility]), history of GI
bleeds in 2021, 06/2022 & 07/2022 with negative work-up who presented to [facility] emergency department on 04/20/2024 after having recent inguinal and ventral hernia repairs 04/18/2024 with sudden onset abdominal discomfort and skin discoloration.
During his prior surgical hospitalization had a heparin bridge for his anticoagulation. He was found to have large right retroperitoneal/intraperitoneal hematoma as well as rectus sheath hematoma. He underwent vascular angiogram which revealed
site of bleeding as proximal branch of the RIGHT circumflex iliac artery which was treated with coil embolization of the vessel by IR on 04/21/2024. Due to ongoing anemia patient has received 4 units of blood. Aspirin and anticoagulation have
remained on hold. Cardiology being asked to see patient to assist in management of anticoagulation given history of mechanical aortic and mitral valve as well as permanent atrial fibrillation.
Progress Note - Record Tabulating Clerk
Subjective
Date of Service: April 29, 2024
Patient seen and examined. No acute events overnight. Patient resting comfortably in bed. Patient denies any chest pain, shortness of breath, palpitations, weakness. Patient notes multiple bowel movements today stable. No other complaints at
this time. Telemetry AF.
Objective
Labs:
04/29/24 06:29
04/29/24 06:29
Labs
Hgb 8.5 g/dL (13.0-18.0) L 04/29/24 06:29
Hct 26.7 % (39.0-52.0) L 04/29/24 06:
Plt Count 257 10^3/uL (130-400) 04/29/24 06:29
PT 23.5 Sec (11.4-14.6) H 04/29/24 06:29
INR 2.08 04/29/24 06:
APTT 104.9 Sec (23.4-35.0) H 04/29/24 06:29
Sodium 133 mmol/L (135-145) L 04/29/24 06:
Potassium 4.5 mmol/L (3.5-5.1) 04/29/24 06:
BUN 26 mg/dl (9-20) H 04/29/24 06:
Creatinine 1.0 mg/dL (0.7-1.3) 04/29/24 06:
Glucose 88 mg/dl (70-99) 04/29/24 06:29
Digoxin 0.4 ng/ml (0.8-2.0) L 04/27/24 07:20
Vital Signs and I&O:
Vital Signs
Temp Pulse Resp BP Pulse Ox
98.0 F 51 16 129/66 98
04/29/24 15:31 04/29/24 15:31 04/29/24 15:31 04/29/24 15:31 04/29/24 15:31
Vital Signs
Temp Pulse Resp BP Pulse Ox
98.0 F 51 16 129/66 98
04/29/24 15:31 04/29/24 15:31 04/29/24 15:31 04/29/24 15:31 04/29/24 15:31
Intake & Output
04/27/24 04/28/24 04/29/24 04/30/24
06:59 06:59 06:59 06:59
Intake Total 150 / 150 1506 / 1506 780 / 780
Output Total 375 / 375 580 / 580 1100 / 1100
Balance -225 / -225 926 / 926 -320 / -320
Physical Exam
Physical Exam
GEN: No distress, awake, alert, oriented x3
HEENT: supple, anicteric, mmm, eomi
LUNGS: CTA B/L, no wheezes/rales
CV: Irreg, S1/S2, + mech valve click
EXT: No cyanosis, clubbing, edema
NEURO: Gross non-focal
SKIN: Warm, pink, dry. No rash
[2024-04-29] MEDS: COUMADIN 5 MG PO (17:56)
[2024-04-29] MEDS: LIPITOR 40 MG PO (17:56)
[2024-04-29] MEDS: COUMADIN 1.5 MG PO (17:57)
[2024-04-29 19:57] VITALS: BP 126/56
[2024-04-29] MEDS: FEOSOL 325 MG PO (20:02)
[2024-04-29] MEDS: HEPARIN 25000 UNITS/250 ML IV (21:19)
[2024-04-29 23:55] VITALS: BP 118/55
[2024-04-30 03:55] VITALS: BP 119/60
[2024-04-30] MEDS: SYNTHROID 37.5 MCG PO (05:53)
[2024-04-30 06:00] VITALS: BMI 23.8
[2024-04-30 07:35] VITALS: BP 122/70
[2024-04-30 08:03] LABS: INR 2.55; PT 27.5 Sec (11.4-14.6)
[2024-04-30] MEDS: LANOXIN 125 MCG PO (08:51)
[2024-04-30] MEDS: COREG 3.125 MG PO (08:51)
[2024-04-30] MEDS: ENTRESTO 24 MG/26 MG 1 TAB PO (08:51)
[2024-04-30] MEDS: FOLVITE 1 MG PO (08:51)
[2024-04-30] MEDS: MIRALAX PO (08:52)
[2024-04-30] MEDS: ROXICODONE 5 MG PO (08:56)
[2024-04-30 09:06] LABS: Hematocrit 27.6 % (39.0-52.0); Mean Corp Hgb Conc. 32.6 g/dL (33.0-37.0); Mean Corpuscular Hgb 31.5 pg (27.0-31.0); Mean Corpuscular Volume 96.5 fL (80.0-94.0); Mean Platelet Volume 9.5 fL (7.4-10.4); Platelet Count 326 10^3/uL (130-400); Red Blood Cell Count 2.86 10^6/uL (4.70-6.10); Red Cell Dist. Width 16.3 % (11.5-14.5); White Blood Cell Count 6.6 10^3/uL (4.8-10.8)
--- NOTE | 2024-04-30 09:36 | CM ---
Met with patient at bedside.
IMM explained & signed.
Per hospitalist dc today
declines VN - PT rec home PT vs no needs
PLAN: Home, declines VN
to transport
--- NOTE | 2024-04-30 10:08 | W.PN.HOSP.TC ---
Today's Communication/Plan
-
await cardio to f/u today
discharge home after
Assessment / Plan
Assessment / Plan
Repeat CTA a/p on 04/24
1. Redemonstration of large RIGHT pelvic extraperitoneal hematoma, grossly similar size compared to the prior CT with no evidence for active bleeding/contrast extravasation.
2. Left rectus sheath hematoma also appears smaller in size and now appears completely thrombosed with no evidence for active bleeding.
3. Trace bilateral pleural effusions with some chronic right-sided pleural thickening/consolidative changes within the posterior right lower lobe. Cardiomegaly.
4. Moderate extrinsic compression of the bladder within the pelvis.
5. Additional findings above.

#Acute on chronic blood Loss Anemia
#Post-op Hematoma
#Status post umbilical/ventral hernia repair on 04/18
-Postoperative from a robotic recurrent right inguinal hernia repair with mesh as well as primary umbilical and epigastric hernia repairs
-Status post right iliac arterial branch embolization bu IR
-Status post vitamin K, FFP and 4 U PRBC
-also got IV Txa on 04/22
-Repeat CTA abdomen pelvis findings as above.
-Patient was started on heparin drip on 04/25 AM
-ongoing warfarin bridging - INR 2.55 > to be discharged on home dose of warfrain 5mg/d- patient will continue checking INR with Coumadin clinic f/u
# Permanent A Fib /Mechanical Valves
-on Dig currently/ Diltiazem-BB on hold
-Dig level on lower side of 0.4
-Coumadin resumed from today
#MEDARDO -resolved
�Suspect secondary to acute blood loss, hypovolemia, contrast need.
-monitor for JUANITO with multiple contrast studies this admission/hypotension. Entresto/Lasix/Aldactone remains on hold.
�US with obstruction of jets, from hematoma
�Hand removed
#Right groin hematoma
-at IR access site and very small on exam. CT a/p images reviewed
-monitor
#Hyponatremia
� Suspect secondary to hypovolemia
� Monitor with resuscitation
#Hyperkalemia - resolved
- Suspect secondary to MEDARDO versus
# Chronic HFrEF
- Entresto resumed
-discussed with cards, d/juanito on 5mg/d warfarin with f/u BMP in 1 week
#Hyperbilirubinemia
-from extravascular hemolysis
#hx of CVA
-hold ASA; can cont statin
#CAD
Cont hold asa; cont bb; statin for now
DVT PPX - SCDs
Code status - full code
More than 30 minutes spent in discharge including
Final examination of the patient
Summarizing hospital stay
Instructions for continuing care to all relevant caregivers
Preparation of discharge records, prescriptions, and referral forms
Total time spent (in minutes): 40 mins
Anticipated Discharge: Today
Subjective/Interval History
-
Date of Service: April 30, 2024
no complains overnight
Objective Data
-
Labs:
Laboratory Results
04/30/24
07:30
WBC 6.6
Hgb 9.0 L
Hct 27.6 L
Plt Count 326 D
PT 27.5 H
INR 2.55
APTT 99.0 H
Vital Signs:
Vital Signs
Temp Pulse Resp BP Pulse Ox
98.2 F 88 16 122/70 98
04/30/24 07:35 04/30/24 07:35 04/30/24 07:35 04/30/24 07:35 04/30/24 07:35
I&O
04/29/24 04/30/24 05/01/24
06:59 06:59 06:59
Intake Total 780 / 780 480 / 480
Output Total 1100 / 1100 600 / 600
Balance -320 / -320 480 / 480 -600 / -600
Review of Systems
-
Respiratory: Reports No Symptoms
Cardiac: Reports No Symptoms
Abdomen/GI: Reports No Symptoms
Physical Exam
-
General: No Apparent Distress and Comfortable
HEENT: Negative Oxygen
Respiratory: Clear to Auscultation
Cardiac: Regular Rhythm and S1/S2; Negative Murmur or Rub
GI: Soft, Normal Bowel Sounds and Other (Echymosis of abd wall, no dehiscence of lap site)
Musculoskeletal: No Edema
Neuro: Awake, Alert, Oriented, No Motor Deficits and Nonfocal/Grossly Intact
Psych: Calm
--- NOTE | 2024-04-30 10:35 | W.PN.CARDCBS ---
Today's Communication / Plan
-
Continue Coumadin, goal INR 2.5�3, managed by our clinic; 2.55 today, okay to DC heparin
BMP in 1 week, follow-up with cardiology scheduled
Stable for DC from cardiovascular standpoint
Impression / Plan
-
Primary Energy Assistant: Dr. Ballesteros
Assessment:
Presentation with sudden onset abdominal discomfort and skin discoloration 04/20/2024
Recent inguinal and ventral hernia repairs 04/18/2024
large right retroperitoneal/intraperitoneal hematoma as well as rectus sheath hematoma
s/p Right circumflex iliac artery bleed s/p coil embolization by IR 04/21/2024
Acute anemia due to blood loss
s/p 1 unit RBCs & 1 unit FFP on 04/21/24, 2 units RBCs 04/22/24, 1 unit RBC 04/23/2024
Mechanical aortic valve replacement
Mechanical mitral valve replacement
Permanent atrial fibrillation
chronic warfarin therapy, managed by [facility] coumadin clinic
History of GI bleeds 2021, 06/2022, 07/2022
Chronic HFrEF
mixed ischemic/Nonischemic cardiomyopathy
Moderate-severe coronary artery disease by cardiac cath 04/2022. (Disease in distal left main and ostial LAD/mid LAD). Opted for medical management after he was deemed not to be suitable candidate for redo sternotomy/CABG by [facility].
Also seen by [facility].
LBBB
prior CVA
chronic anemia
s/p inguinal and ventral hernia repairs 04/18/2024
Echo 09/11/21: EF 45-50%, well-seated mechanical mitral valve replacement with a mean gradient of 7 mmHg. No significant regurgitation.�Well-seated mechanical aortic replacement with peak and mean gradients of 18�and 9 mmHg, respectively. Trace aortic
regurgitation. Tricuspid valve opens normally with mild tricuspid regurgitation. Estimated pulmonary artery pressure of 31 mmHg, assuming a right atrial pressure of 5 mmHg.
Echo 04/13/22: EF 25%, global hypokinesis, well-seated mechanical mitral valve prosthesis with mean gradient 4 mmHg and no MR, well-seated mechanical aortic valve prosthesis with peak/mean 11/7 mmHg and trace aortic regurgitation, sev TR with PAP 51
mmHg, Mildly dilated aortic root. SOV at 4.3 cm. Normal ascending aorta. Suboptimal suprasternal notch view, enlarged RV size with reduced RV systolic function
Echocardiogram 04/03/2024: Ejection fraction 35-40%, left ventricle mildly dilated, mechanical mitral valve with mean gradient of 7 mmHg, mechanical AVR with mean gradient of 8 mmHg, mild to moderate TR with PA systolic pressure of 40-45 mmHg
Cardiac cath 04/16/2022: LM:40% distal, LAD: Distal left main into extending into ostial LAD 60 to 70%, 60 to 70% mid LAD stenosis. � The iFR in the distal LAD serially measured below the ischemic threshold 0.79, 0.83, and 0.74. LCX: LI, RCA:50% mid
RHC 04/17/2022:�Hemodynamics (mmHg):RA (m : 9; RV (s/d,m) : 31/3, 8; PA (s/d, m) : 34/14, 22; PCWP (m) : 12, with v waves up to 18; Aortic saturation: 97%; PA saturation: 64.7%; Cardiac Output : 4.6 L/min
Cardiac Index : 2.50 L/min/m-2; Systemic vascular resistance: 1349 dsc^(-5)p; Pulmonary vascular resistance: 2.19 Heath unit
Plan:
-Presented 04/20/2024 with sudden onset abdominal discomfort and skin discoloration. Patient was s/p inguinal and ventral hernia repairs 04/18/2024. Found to have large right retroperitoneal/intraperitoneal hematoma as well as rectus sheath hematoma.
Did require transfusion. Now s/p Right circumflex iliac artery bleed with coil embolization by IR 04/21/2024. Repeat CTAP 04/24 with stable appearance of RP hematoma, no evidence of active bleeding.
-[facility]. hgb 9. INR 1.91 on 04/28, 2.08 04/29, 2.55 04/30. OK to DC heparin, continue coumadin, plan to check tomorrow as OP and call office
-was also on asa 81mg daily prior to admission. he has history of CAD, however no recent stents. would consider stopping to reduce bleeding risk moving forward.
-remains in permanent afib with LBBB and controlled response. continue digoxin, dig level 0.4 on 04/27. coreg resumed 04/26. appears was on cardizem as OP, will discontinue with EF 35-40%.
-BPs stable on OP entresto. lasix resumed. OP spironolactone remains on hold.
-BMP 1 week, f/u with cardiology as scheduled in 2-4 weeks
HPI 04/24/2024:
Patient is an 83 yo M with PMH of mechanical aortic and mitral valve replacements, permanent atrial fibrillation, chronic warfarin therapy, prior strokes/TIA, multivessel coronary artery disease (deemed poor candidate for CABG by [facility]TS), history of GI
bleeds in 2021, 06/2022 & 07/2022 with negative work-up who presented to [place] emergency department on 04/20/2024 after having recent inguinal and ventral hernia repairs 04/18/2024 with sudden onset abdominal discomfort and skin discoloration.
During his prior surgical hospitalization had a heparin bridge for his anticoagulation. He was found to have large right retroperitoneal/intraperitoneal hematoma as well as rectus sheath hematoma. He underwent vascular angiogram which revealed
site of bleeding as proximal branch of the RIGHT circumflex iliac artery which was treated with coil embolization of the vessel by IR on 04/21/2024. Due to ongoing anemia patient has received 4 units of blood. Aspirin and anticoagulation have
remained on hold. Cardiology being asked to see patient to assist in management of anticoagulation given history of mechanical aortic and mitral valve as well as permanent atrial fibrillation.
Progress Note - Energy Assistant
Subjective
Date of Service: April 30, 2024
Patient seen and examined no acute events overnight. Patient resting comfortably in bed. Patient has any chest pain, shortness of breath, palpitations, weakness. Telemetry shows atrial fibrillation.
Objective
Labs:
04/30/24 07:30
04/29/24 06:29
Labs
Hgb 9.0 g/dL (13.0-18.0) L 04/30/24 07:30
Hct 27.6 % (39.0-52.0) L 04/30/24 07:30
Plt Count 326 10^3/uL (130-400) D 04/30/24 07:30
PT 27.5 Sec (11.4-14.6) H 04/30/24 07:30
INR 2.55 04/30/24 07:30
APTT 99.0 Sec (23.4-35.0) H 04/30/24 07:30
Sodium 133 mmol/L (135-145) L 04/29/24 06:29
Potassium 4.5 mmol/L (3.5-5.1) 04/29/24 06:29
BUN 26 mg/dl (9-20) H 04/29/24 06:29
Creatinine 1.0 mg/dL (0.7-1.3) 04/29/24 06:29
Glucose 88 mg/dl (70-99) 04/29/24 06:29
Digoxin 0.4 ng/ml (0.8-2.0) L 04/27/24 07:20
Vital Signs and I&O:
Vital Signs
Temp Pulse Resp BP Pulse Ox
98.2 F 88 16 122/70 98
04/30/24 07:35 04/30/24 07:35 04/30/24 07:35 04/30/24 07:35 04/30/24 07:35
Vital Signs
Temp Pulse Resp BP Pulse Ox
98.2 F 88 16 122/70 98
04/30/24 07:35 04/30/24 07:35 04/30/24 07:35 04/30/24 07:35 04/30/24 07:35
Intake & Output
04/28/24 04/29/24 04/30/24 05/01/24
06:59 06:59 06:59 06:59
Intake Total 1506 / 1506 780 / 780 480 / 480
Output Total 580 / 580 1100 / 1100 600 / 600
Balance 926 / 926 -320 / -320 480 / 480 -600 / -600
Physical Exam
Physical Exam
GEN: No distress, awake, alert, oriented x3
HEENT: supple, anicteric, mmm, eomi
LUNGS: CTA B/L, no wheezes/rales
CV: Irreg, S1/S2, + mech valve click
EXT: No cyanosis, clubbing, edema
NEURO: Gross non-focal
SKIN: Warm, pink, dry. No rash
[2024-04-30 11:00] VITALS: BP 148/69
--- NOTE | 2024-04-30 15:51 | W.DCSUMMARY ---
Discharge Summary
Discharge Data
Date of Admission: 04/21/24
Date of Discharge: 04/30/24
-
Pending Results: No
Hospital Course
Discharging Physician : Dr Ronaldo Tom
Disposition : To home
Primary care physician : Dr Pedro Martinez
Principal Discharge diagnosis :
Acute on chronic blood loss anemia
Postoperative abdominal/retroperitoneal hematoma
Acute kidney injury
Right groin access site hematoma
Hyponatremia
Hyperkalemia
Chronic Discharge diagnosis :
Recent umbilical/ventral hernia repair
Chronic systolic congestive heart failure
Permanent atrial fibrillation
Mechanical mitral/aortic valve on Coumadin therapy
History of stroke
Coronary artery disease
Hospital Course :
83-year-old male with admission past medical history came to ER for having new onset of abdominal wall bruising and pain. Patient noted to having increased swelling and tenderness to the anterior abdominal wall. Of note patient have underwent
ventral hernia surgery recently and a repeat CT scan this visit showed a large retroperitoneal/intraperitoneal hematoma with possible imaging signs of active hemorrhage. General surgery and interventional radiology were consulted and patient
underwent emergent embolization of right iliac arterial bleeder. Postprocedure patient was transferred to intermediate care unit for close monitoring. Patient have history of mechanical aortic valve and has been on warfarin, patient required FFP
and infusion of IV tranexamic acid. Patient required blood transfusion as well. Patient had follow-up CT scan of abdomen which showed stable hematoma. Cardiology was involved in care and after discussion patient was started on heparin drip.
Patient was started on warfarin bridge as well and monitored closely in the hospital. No further rebleeding episode occurred and at discharge patient will transition back to warfarin 5 mg daily dose. Patient will continue following up with
Coumadin clinic.
Patient also had episode of hypotension/MEDARDO. Diuretics and antihypertensive needed to be held. Ultrasound of kidneys/urinary bladder did not show any structural problems. Patient had associated hyponatremia/hyperkalemia. All this resolved after
improvement of renal function. Patient was slowly started back on home cardiac medication.
Post medical stabilization patient was discharged home
Important imaging findings :
CT a/pT
here is a large right pelvic and lower abdominal extraperitoneal hematoma, with fluid-fluid layer, and findings suggesting active hemorrhage.
There is a left rectus hematoma in the abdomen, with fluid-fluid layer. Possible component of active hemorrhage as described.
Small amount of pneumoperitoneum, likely postsurgical.
CT a/p
1. Redemonstration of large RIGHT pelvic extraperitoneal hematoma, grossly similar size compared to the prior CT with no evidence for active bleeding/contrast extravasation.
2. Left rectus sheath hematoma also appears smaller in size and now appears completely thrombosed with no evidence for active bleeding.
3. Trace bilateral pleural effusions with some chronic right-sided pleural thickening/consolidative changes within the posterior right lower lobe. Cardiomegaly.
4. Moderate extrinsic compression of the bladder within the pelvis.
5. Additional findings above.
Procedure findings :
IR embolization procedure:
Subtle focus of extravasation identified arising from a proximal branch of the RIGHT circumflex iliac artery with subsequent coil embolization of the vessel.
Limited arteriograms of the left common iliac and external iliac arteries with limited evaluation of the inferior epigastric artery secondary to oral contrast within the bowel and excreted contrast in a bladder.
Discharge Plan
-
Patient Disposition: Home (Routine Discharge)
Discharge Diagnosis/Procedures: Acute on chronic anemia, Post op hematoma, MEDARDO.
Condition: Fair
Diet: Regular
Activity: As tolerated
Driving Restrictions: No driving
Bathing Restrictions: OK to Shower
Blood Work: BMP in 1 week. Continue f/u INR with coumadin clinic
Activity Restrictions/Additional Instructions:
Follow up with Coumadin clinic.
Referrals:
Pedro Martinez DO [Family Provider] - in one week
Prescriptions:
New
furosemide [Lasix] 20 mg tablet
20 mg PO DAILY Qty: 30 0RF
Continued
warfarin [Jantoven] 5 MG tablet
5 mg PO QPM
Patient Comments:
09/13/23: PER ECW-NADIRA from [facility] called to verify dose for patient as dose in comment section is 5.5mg daily. I told him patient has 1mg tabs at home and knows to break them in half however, I did tell PJ to please note in patient file that he
does not take the dose of Coumadin we direct most times. Patient doses himself a lot of the time. We have educated patient multiple times to not do this and why it is important to follow our dosing.
ferrous sulfate 325 mg (65 mg iron) tablet
325 mg PO HS
digoxin 125 mcg (0.125 mg) tablet
125 mcg PO DAILY
atorvastatin 40 mg tablet
40 mg PO QPM
folic acid 1 MG tablet
1 mg PO DAILY
sacubitril-valsartan [Entresto] 24-26 mg tablet
1 tab PO BID
carvedilol 6.25 mg Tablet
3.125 mg PO BID
diltiazem HCl 120 mg Tablet
120 mg PO QPM
coenzyme Q10 [CoQ-10] 100 mg Capsule
300 mg PO DAILY
omega 7-wfn-prn-fish oil [Fish Oil] 1,000 mg (120 mg-180 mg) Capsule
2 cap PO DAILY
cholecalciferol (vitamin D3) [Vitamin D3] 50 mcg (2,000 unit) Capsule
50 mcg PO DAILY
garlic 300 mg Capsule
600 mg PO QPM
levothyroxine 37.5 mcg Capsule
37.5 mcg PO DAILY
Basis Combination
1 dose PO DAILY
Patient Comments:
250mg Crystaline nicotinamide riboside/Pterostillbene 50mg
Discontinued
furosemide 40 mg tablet
40 mg PO DAILY
aspirin [Aspirin Childrens] 81 mg tablet,chewable
81 mg PO Q48H
spironolactone 25 mg tablet
25 mg PO DAILY
enoxaparin [Lovenox] 60 mg/0.6 mL Syringe
60 mg SC Q12H
Discharge Orders:
Discharge Patient (As Directed); Ordered 04/30/24
Ordered By: Ronaldo Tom
Discharge Date and Time
Discharge Date/Time: 04/30/24 12:15
Print Language: FIJIAN
== END 2024-04-30 12:15 | disposition home or self-care (01) | DRG 907 ==
LOC: 4 EAST ACU 03:49
PROVIDERS: Internal Medicine; Physician Assistant; Radiology Diagnostic Radiology; Surgery; ADMITTING PHYSICIAN Internal Medicine; ATTENDING PHYSICIAN Hospitalist; CONSULT PHYSICIAN Surgery; EMERGENCY PHYSICIAN Student in an Organized Health Care Education/Training Program; FAMILY PHYSICIAN Family Medicine; OTHER PHYSICIAN Internal Medicine Hematology & Oncology; OTHER PHYSICIAN Nuclear Medicine Nuclear Cardiology
PROC: 30233K1 Transfusion of Nonautologous Frozen Plasma into Peripheral Vein, Percutaneous Approach (ICD-10-PCS; 2024-04-21)
PROC: B41G1ZZ Fluoroscopy of Left Lower Extremity Arteries using Low Osmolar Contrast (ICD-10-PCS; 2024-04-21)
PROC: B41F1ZZ Fluoroscopy of Right Lower Extremity Arteries using Low Osmolar Contrast (ICD-10-PCS; 2024-04-21)
PROC: 04L Lower Arteries, Occlusion (ICD-10-PCS; 2024-04-21)
PROC: 30233N1 Transfusion of Nonautologous Red Blood Cells into Peripheral Vein, Percutaneous Approach (ICD-10-PCS; 2024-04-21)
DX: K91.871 Postprocedural hematoma of a digestive system organ or structure following other procedure (principal); K68.3 Retroperitoneal hematoma; M96.840 Postprocedural hematoma of a musculoskeletal structure following a musculoskeletal system procedure; I48.21 Permanent atrial fibrillation; I50.22 Chronic systolic (congestive) heart failure; D62 Acute posthemorrhagic anemia; D68.32 Hemorrhagic disorder due to extrinsic circulating anticoagulants; I42.8 Other cardiomyopathies; N17.9 Acute kidney failure, unspecified; E87.1 Hypo-osmolality and hyponatremia; E86.1 Hypovolemia; E87.5 Hyperkalemia; I95.9 Hypotension, unspecified; E80.6 Other disorders of bilirubin metabolism; K91.841 Postprocedural hemorrhage of a digestive system organ or structure following other procedure; Y83.8 Other surgical procedures as the cause of abnormal reaction of the patient, or of later complication, without mention of misadventure at the time of the procedure; T45.515A Adverse effect of anticoagulants, initial encounter; I44.7 Left bundle-branch block, unspecified; I25.5 Ischemic cardiomyopathy; I11.0 Hypertensive heart disease with heart failure; I25.10 Atherosclerotic heart disease of native coronary artery without angina pectoris; E78.00 Pure hypercholesterolemia, unspecified; J45.909 Unspecified asthma, uncomplicated; Z95.2 Presence of prosthetic heart valve; Z86.73 Personal history of transient ischemic attack (TIA), and cerebral infarction without residual deficits; Z95.1 Presence of aortocoronary bypass graft; Z79.01 Long term (current) use of anticoagulants; Z79.82 Long term (current) use of aspirin
CPT/HCPCS: 36245; 36430; 37244; 74174; 74177; 75726; 76770; 76937; 80048; 80053; 80162; 82248; 83605; 85014; 85018; 85025; 85027; 85610; 85730; 86850; 86900; 86901; 86920; 87070; 93005; 96361; 96374; 96375; 96376; 97116; 97163; 97167; 97530; 99291; C1769; C1887; J7168; P9016; P9059; Q9967

== ENCOUNTER → 2024-05-11 10:16 | Outpatient (REF) | payer OTHER, SELFPAY ==
[2024-05-11 13:10] LABS: % Basophils 0.5 % (0-2); % Eosinophils 1.9 % (0-6); % Immature Granulocytes 0.4 % (0-0.5); % Lymphocytes 12.6 % (20.5-51.1); % Neutrophils 71.6 % (42.2-75.2); Absolute Eosinophils 0.1 10^3/uL (0-0.7); Absolute Lymphocytes 0.7 10^3/uL (1.2-3.4); Absolute Monocytes 0.7 10^3/uL (0.1-0.6); Absolute Neutrophils 4.1 10^3/uL (1.4-6.5); Hematocrit 33.6 % (39.0-52.0); Hemoglobin 10.4 g/dL (13.0-18.0); Mean Corpuscular Hgb 31.2 pg (27.0-31.0); Mean Corpuscular Volume 100.9 fL (80.0-94.0); Mean Platelet Volume 9.4 fL (7.4-10.4); Nucleated Red Blood Cells % 0 % (-); Platelet Count 303 10^3/uL (130-400); Red Blood Cell Count 3.33 10^6/uL (4.70-6.10); Red Cell Dist. Width 17.7 % (11.5-14.5); White Blood Cell Count 5.7 10^3/uL (4.8-10.8)
[2024-05-11 13:17] LABS: INR 1.52; PT 18.8 Sec (11.4-14.6)
[2024-05-11 13:29] LABS: Blood Urea Nitrogen 21 mg/dl (9-20); Calcium 9.4 mg/dl (8.4-10.2); Carbon Dioxide 33 mmol/L (22-30); Chloride 98 mmol/L (98-107); Glucose 94 mg/dl (70-99); Iron 73 ug/dl (49-181); Potassium 4.5 mmol/L (3.5-5.1); Sodium 137 mmol/L (135-145); eGFR > 60.00
[2024-05-11 13:39] LABS: Percent Saturation 28 % (20-50); Total Iron Binding Capacity 258 ug/dl (261-462)
== END ==
LOC: HWLAB 10:16
PROVIDERS: ATTENDING PHYSICIAN Internal Medicine Cardiovascular Disease; FAMILY PHYSICIAN Family Medicine; OTHER PHYSICIAN Surgery; REFERRING PHYSICIAN Internal Medicine Hematology & Oncology
DX: Z95.2 Presence of prosthetic heart valve (principal); Z86.73 Personal history of transient ischemic attack (TIA), and cerebral infarction without residual deficits; D50.9 Iron deficiency anemia, unspecified; D63.1 Anemia in chronic kidney disease; N18.30 Chronic kidney disease, stage 3 unspecified; D59.4 Other nonautoimmune hemolytic anemias; I48.21 Permanent atrial fibrillation; I42.9 Cardiomyopathy, unspecified
CPT/HCPCS: 36415; 80048; 82728; 83540; 83550; 85025; 85610

== ENCOUNTER → 2024-05-19 14:54 | Outpatient (REF) | payer OTHER, SELFPAY ==
[2024-05-19 15:05] LABS: % Basophils 0.6 % (0-2); % Eosinophils 3.4 % (0-6); % Immature Granulocytes 0.2 % (0-0.5); % Monocytes 13.3 % (1.7-9.3); % Neutrophils 67.5 % (42.2-75.2); Absolute Eosinophils 0.2 10^3/uL (0-0.7); Absolute Lymphocytes 0.8 10^3/uL (1.2-3.4); Absolute Monocytes 0.7 10^3/uL (0.1-0.6); Absolute Neutrophils 3.5 10^3/uL (1.4-6.5); Hematocrit 32.7 % (39.0-52.0); Hemoglobin 10.5 g/dL (13.0-18.0); Mean Corp Hgb Conc. 32.1 g/dL (33.0-37.0); Mean Corpuscular Hgb 31.4 pg (27.0-31.0); Mean Corpuscular Volume 97.9 fL (80.0-94.0); Mean Platelet Volume 9.1 fL (7.4-10.4); Platelet Count 181 10^3/uL (130-400); Red Blood Cell Count 3.34 10^6/uL (4.70-6.10); Red Cell Dist. Width 16.6 % (11.5-14.5); White Blood Cell Count 5.3 10^3/uL (4.8-10.8)
== END ==
LOC: OIDL 14:54
PROVIDERS: ATTENDING PHYSICIAN Internal Medicine Hematology & Oncology; FAMILY PHYSICIAN Family Medicine
DX: D50.9 Iron deficiency anemia, unspecified (principal)
CPT/HCPCS: 36415; 85025

== ENCOUNTER → 2024-06-19 06:22 | Outpatient (REF) | payer OTHER, SELFPAY ==
[2024-06-19 09:33] LABS: % Eosinophils 2.9 % (0-6); % Immature Granulocytes 0.2 % (0-0.5); % Lymphocytes 19.1 % (20.5-51.1); % Monocytes 12.1 % (1.7-9.3); % Neutrophils 64.7 % (42.2-75.2); Absolute Basophils 0.1 10^3/uL (0-0.2); Absolute Eosinophils 0.2 10^3/uL (0-0.7); Absolute Monocytes 0.6 10^3/uL (0.1-0.6); Absolute Neutrophils 3.3 10^3/uL (1.4-6.5); Hematocrit 37.3 % (39.0-52.0); Hemoglobin 12.1 g/dL (13.0-18.0); Mean Corp Hgb Conc. 32.4 g/dL (33.0-37.0); Mean Corpuscular Hgb 31.9 pg (27.0-31.0); Mean Corpuscular Volume 98.4 fL (80.0-94.0); Mean Platelet Volume 9.9 fL (7.4-10.4); Nucleated Red Blood Cells % 0 % (-); Platelet Count 194 10^3/uL (130-400); Red Blood Cell Count 3.79 10^6/uL (4.70-6.10); Red Cell Dist. Width 14.9 % (11.5-14.5); White Blood Cell Count 5.1 10^3/uL (4.8-10.8)
[2024-06-19 10:54] LABS: Blood Urea Nitrogen 31 mg/dl (9-20); Iron 90 ug/dl (49-181)
[2024-06-19 11:04] LABS: Percent Saturation 31 % (20-50); Total Iron Binding Capacity 282 ug/dl (261-462)
== END ==
LOC: HWLAB 06:22
PROVIDERS: ATTENDING PHYSICIAN Internal Medicine Hematology & Oncology; FAMILY PHYSICIAN Family Medicine
DX: D50.9 Iron deficiency anemia, unspecified (principal); D63.1 Anemia in chronic kidney disease; N18.30 Chronic kidney disease, stage 3 unspecified; D59.4 Other nonautoimmune hemolytic anemias
CPT/HCPCS: 36415; 82565; 82728; 83540; 83550; 84520; 85025

== ENCOUNTER → 2024-07-25 08:53 | Outpatient (REF) | payer OTHER, SELFPAY ==
[2024-07-25 11:59] LABS: % Basophils 0.8 % (0-2); % Eosinophils 1.8 % (0-6); % Immature Granulocytes 0.2 % (0-0.5); % Lymphocytes 17.3 % (20.5-51.1); % Monocytes 12.7 % (1.7-9.3); % Neutrophils 67.2 % (42.2-75.2); Absolute Eosinophils 0.1 10^3/uL (0-0.7); Absolute Lymphocytes 0.9 10^3/uL (1.2-3.4); Absolute Monocytes 0.6 10^3/uL (0.1-0.6); Absolute Neutrophils 3.4 10^3/uL (1.4-6.5); Hematocrit 37.6 % (39.0-52.0); Hemoglobin 12.3 g/dL (13.0-18.0); Mean Corp Hgb Conc. 32.7 g/dL (33.0-37.0); Mean Corpuscular Hgb 31.5 pg (27.0-31.0); Mean Corpuscular Volume 96.4 fL (80.0-94.0); Mean Platelet Volume 10.1 fL (7.4-10.4); Nucleated Red Blood Cells % 0 % (-); Platelet Count 195 10^3/uL (130-400); Red Cell Dist. Width 13.8 % (11.5-14.5)
[2024-07-25 12:07] LABS: Iron 104 ug/dl (49-181)
[2024-07-25 12:09] LABS: INR 2.13; PT 24.3 Sec (11.4-14.6)
[2024-07-25 12:17] LABS: Percent Saturation 33 % (20-50); Total Iron Binding Capacity 308 ug/dl (261-462)
== END ==
LOC: HWLAB 08:53
PROVIDERS: ATTENDING PHYSICIAN Internal Medicine Hematology & Oncology; FAMILY PHYSICIAN Family Medicine; REFERRING PHYSICIAN Internal Medicine Cardiovascular Disease
DX: D50.9 Iron deficiency anemia, unspecified (principal); D63.1 Anemia in chronic kidney disease; Z95.2 Presence of prosthetic heart valve; Z86.73 Personal history of transient ischemic attack (TIA), and cerebral infarction without residual deficits; N18.30 Chronic kidney disease, stage 3 unspecified
CPT/HCPCS: 36415; 82728; 83540; 83550; 85025; 85610